=== PATIENT | female | born 1940 | race Caucasian/White ===

== ENCOUNTER → 2018-05-02 | Outpatient (CLI) | payer MEDICARE ==
[2018-05-02 15:17] LABS: HCT 44.6 % (34.0-46.0); HGB 14.8 gm/dL (11.4-16.0); MCH 29.6 pg (25.0-35.0); MCHC 33.1 g/dL (31.0-37.0); MCV 89.5 fL (80.0-100.0); Mean Platelet Volume 7.6; Platelet Count 217 k/uL (150-450); RBC 4.98 m/uL (3.80-5.40); RDW 13.6 % (11.5-15.5); WBC 6.4 k/uL (3.8-10.6)
== END | disposition home or self-care (01) ==
LOC: LABPAT 14:30
PROVIDERS: ATTEND Internal Medicine Interventional Cardiology
DX: Z01.812 Encounter for preprocedural laboratory examination (principal); R94.39 Abnormal result of other cardiovascular function study; I10 Essential (primary) hypertension; R06.02 Shortness of breath
CPT/HCPCS: 36415; 80051; 82565; 84520; 85027

== ENCOUNTER 2018-05-07 12:20 | Day surgery (SDC) | payer MEDICARE ==
[~2018-05-07 12:20] MED LIST: ALPRAZolam 0.25 MG TAB PO PRN; ALPRAZolam 0.5 MG TAB PO PRN; ASPIRIN 325 MG TAB PO ONE; ATORVASTATIN 80 MG TAB PO ONE; NITROGLYCERIN SL TABS 0.4 MG TAB SUBLINGUAL PRN; SODIUM CHLORIDE 0.9% 1,000 ML in EMPTY BAG 1 BAG IV ONE
[2018-05-07] MEDS ORDERED: fentaNYL (PF) 50 MCG/ML 2 ML AMP ONE (13:58)
[2018-05-07] MEDS ORDERED: VERAPAMIL 2.5 MG/ML 2 ML AMP ONE (13:58)
[2018-05-07] MEDS ORDERED: HEPARIN SODIUM PORCINE ONE (13:58)
[2018-05-07] MEDS ORDERED: LIDOCAINE 1% INJ 10MG/ML (20 ML MDV) ONE (13:58)
[2018-05-07] MEDS ORDERED: fentaNYL (PF) 50 MCG/ML 2 ML AMP IV ONE (14:12)
[2018-05-07] MEDS ORDERED: LIDOCAINE 1% INJ 10MG/ML (20 ML MDV) SQ ONE (14:16)
[2018-05-07] MEDS ORDERED: VERAPAMIL SYRINGE (5 MG/10 ML) INTRAARTER ONE (14:18)
[2018-05-07] MEDS ORDERED: ONDANSETRON 4 MG/2 ML VIAL ONE (14:20)
[2018-05-07] MEDS ORDERED: ONDANSETRON 4 MG/2 ML VIAL IVP ONE (14:22)
[2018-05-07] MEDS ORDERED: MIDAZOLAM 2 MG/2 ML VIAL ONE (14:25)
[2018-05-07] MEDS ORDERED: MIDAZOLAM 2 MG/2 ML VIAL IV ONE (14:26)
[2018-05-07] MEDS ORDERED: BIVALIRUDIN BOLUS 250 MG/50 ML IV ONE (14:32)
[2018-05-07] MEDS ORDERED: TICAGRELOR 90 MG TAB ONE (14:32)
[2018-05-07] MEDS ORDERED: BIVALIRUDIN 250 MG in SODIUM CHLORIDE 0.9% 50 ML IV ONE (14:33)
[2018-05-07] MEDS ORDERED: TICAGRELOR 90 MG TAB PO ONE (14:34)
[2018-05-07] MEDS ORDERED: IOPAMIDOL-370 100ML BTL INJ ONE ×2 (14:39→15:09)
[2018-05-07] MEDS ORDERED: ATROPINE SULFATE 0.1 MG/ML 10ML SYRINGE IV PRN (15:19)
[2018-05-07] MEDS ORDERED: ZOLPIDEM 5 MG TAB PO PRN (15:19)
[2018-05-07] MEDS ORDERED: NITROGLYCERIN SL TABS 0.4 MG TAB SUBLINGUAL PRN (15:19)
[2018-05-07] MEDS ORDERED: RX INFO: IV CONTRAST WAS GIVEN 1 EACH MISC MISCELLANE PRN (15:19)
[2018-05-07] MEDS ORDERED: MAG HYDROX/AL HYDROX/SIMETH 30 ML CUP PO PRN (15:19)
[2018-05-07] MEDS ORDERED: SODIUM CHLORIDE 0.9% 1,000 ML IV SCH (15:30)
--- NOTE | 2018-05-07 16:20 | CC ---
CARDIAC CATHETERIZATION REPORT Mrs. Yun is a 77-year-old female known history of diabetes, hypertension, who has been complaining of exertional chest discomfort and had abnormal myocardial perfusion imaging with inferoseptal reversible defect. In view of that, recommendation regarding cardiac catheterization. The procedures, risks and complication were discussed with the patient who is in full understanding and agreement. PROCEDURE: Patient was brought to the director geophysical laboratory in a fasting state after receiving fentanyl and Benadryl and achieving moderate conscious sedated state. Using Xylocaine anesthesia and Seldinger technique, a 6-Bangladeshi sheath was introduced in the right radial artery. Selective right and left angiography performed was performed using 5-Bangladeshi 3 and a half bend right and left Moy catheter. Multiple views of the coronary artery including hemiaxial views were obtained. Following that a 5-Bangladeshi right Moy was used to cross the aortic valve and pressures were calculated. Following that, the catheter was removed and images were reviewed. FINDINGS: FLUOROSCOPY: There was calcification involving the proximal right coronary artery. CORONARY ANGIOGRAPHY: Left main: This is a large size vessel, bifurcating into left circumflex and left anterior descending artery. Left main coronary artery has no evidence of high-grade stenosis. Left anterior descending artery: This is a large-sized vessel reaching toward the apex with a wraparound the apex segment that tapers down distally. The left anterior descending artery gives rise to a large diagonal branch in the mid segment. At the takeoff of the diagonal branch, there is tubular lesion of 50%. The first diagonal branch has a tubular lesion of 60-70 percent. The rest of the LAD has no evidence of high-grade stenosis. Left circumflex: This is a nondominant vessel giving rise to 2 obtuse marginal branches of moderate caliber that have no evidence of high-grade stenosis. Right coronary artery: This is a large dominant vessel bifurcating into PDA and posterolateral segment and its branches. The right coronary artery proximally has a 95% stenosis in a calcified segment shortly after the takeoff. LEFT VENTRICULOGRAM: Left ventriculogram was not performed. HEMODYNAMICS: There was no gradient across the aortic valve. The left ventricle end-diastolic pressure was 12 mmHg. CONCLUSION: 1. Calcified coronary arteries. 2. Moderate disease in the LAD and moderate significant disease in the first diagonal branch. RECOMMENDATION: In view of finding anatomy, I recommend proceeding with angioplasty and stenting of the right coronary artery. The procedure as well as risks and complications were discussed with the patient who is in full understanding and agreement. MMCHRISTI / IJN: [id number] /
--- NOTE | 2018-05-07 16:23 | PTCA ---
PERCUTANEOUSTRANS CORORONARY ANGIOGRAPHY Maria Luisa Mitchell is a 57-year-old female with a known history of hypertension, and diabetes who presented with symptoms of chest pain, had an abnormal myocardial perfusion imaging and her cardiac catheterization showed a critical stenosis involving the ostial proximal right coronary artery. In view of that, recommendation was made regarding angioplasty and stenting. The procedure as well as risks and complications were discussed with the patient who is in full understanding and agreement. PROCEDURE: A 6-Kazakh 3.5 FR guiding catheter was introduced into the system. After cannulating the left main, a 0.014 balanced medium weight J-wire was advanced across the lesion, positioned distally. Then a 3.0 x 12 mm Trek balloon was advanced and one inflation at 10 atmospheres was done. Following that, the balloon was removed and attempt to advance 4.0 x 15 mm Xience CR stent were unsuccessful. That stent was removed and a 0.014 whisper J-wire was advanced next to the 1st wire in a patricia fashion and subsequently attempt to advance the stent were unsuccessful. That stent was removed and attempt to advance a 4.0 x 12 mm Xience ER stent were unsuccessful. After removing that stent, a 3.5 x 12 mm Trek balloon was advanced and one inflation at 10 atmospheres was done. Following that, the balloon was removed and a 4.0 x 12 mm Xience ER stent was advanced, deployed and was dilated at 16 atmospheres. After removing the balloon, a 4.5 x 8 mm NC Trek balloon was advanced and one inflation at 12 atmospheres was done. After the last inflation, after appropriate wait, the balloon and the guidewire were withdrawn back in the guiding catheter. Images were obtained, repeated. Those images reveal stable successful stenting. At that point, the guiding catheter, the balloon and the guidewire were removed. Sheath was removed. Hemostasis was obtained with deployment of a TR band. There was no immediate complications. Patient is returned to her room in stable condition. Of note, the patient had no chest discomfort or EKG changes with the inflation. She received Angiomax per protocol as well as oral loading dose of Brilinta. RESULTS: Successful stenting of the proximal right coronary artery with reduction of stenosis from 95% to less than 5%. RECOMMENDATION: Patient will be continued on aspirin, Brilinta and statin. The importance of dual antiplatelet treatment were discussed with the patient and her family who are in full understanding and agreement. Duration of procedure is 55 minutes. MMHALIEL / IJN: [id number] /
--- NOTE | 2018-05-07 16:29 | LTR ---
DATE OF SERVICE: 05/07/[address] Yates: I had the pleasure of performing cardiac catheterization and coronary angioplasty and stenting on Mrs. Mitchell at [facility] on May 07 and a full copy of procedure note will be forwarded to you. In brief, she was found to have critical stenosis involving the proximal right coronary artery and underwent successful stenting of that vessel using a drug-eluting stent. I am hopeful that this procedure will stabilize her status. Thank you again for allowing me to participate in her care. Please feel free to call for any questions. Sincerely yours, MMHALIEL / IJN: [id number] /
[2018-05-07] MEDS: CARVEDILOL 6.25 MG TAB PO SCH (17:13)
[2018-05-07] MEDS: LOPERAMIDE 2 MG CAP PO SCH (20:52)
[2018-05-07] MEDS: TICAGRELOR 90 MG TAB PO SCH (20:52)
[2018-05-07] MEDS ORDERED: amLODIPine 2.5 MG TAB PO SCH (21:00)
[2018-05-07] MEDS ORDERED: ATORVASTATIN 80 MG TAB PO SCH (21:00)
[2018-05-08 00:53] VITALS: RESP 16
[2018-05-08] MEDS: CARVEDILOL 6.25 MG TAB PO SCH (06:24)
[2018-05-08 08:00] LABS: Calcium 9.1 mg/dL (8.4-10.2); Potassium 3.9 mmol/L (3.5-5.1)
[2018-05-08] MEDS: TICAGRELOR 90 MG TAB PO SCH (08:07)
[2018-05-08] MEDS: LOPERAMIDE 2 MG CAP PO SCH (08:08)
[2018-05-08 08:11] VITALS: BP 110/69; PULSE 65; TEMP 98.3
--- NOTE | 2018-05-08 08:39 | PN ---
PROGRESS NOTE Mrs. Mitchell is a 77-year-old female with known history of hypertension and diabetes mellitus who presented with symptoms of angina pectoris and abnormal myocardial perfusion imaging, underwent cardiac catheterization, was found to have critical stenosis involving the proximal calcified right coronary artery, underwent stenting of that vessel. She is doing well this morning. She is denying any chest pain. her breathing has been stable. She denies any dizziness or palpitation. She continued on aspirin 81 mg daily, amlodipine 2.5 mg daily, atorvastatin 80 mg daily, Coreg 6.5 mg twice a day, lisinopril HCT 20-25 mg daily. Her potassium Imodium and Brilinta 90 mg twice a day. PHYSICAL EXAMINATION: Blood pressure 110/60 with a heart in the 60s. LUNGS: Clear. HEART: Regular rhythm S1, S2. No S3. No rub. ABDOMEN: Soft, nontender. Right groin study right radial no hematoma. EXTREMITIES: No edema. LAB DATA: BUN and creatinine 13 and 0.84 potassium 3.9. Her EKG revealed no acute changes. IMPRESSION: 1. Status post stenting of the right coronary artery. 2. Hypertension. 3. Diabetes mellitus. RECOMMENDATION: Patient will be discharged home today and followed as an outpatient. MMODL / IJN: [id number] /
[2018-05-08] MEDS ORDERED: LISINOPRIL-HCTZ 20-25 MG 1 EACH TAB PO SCH (09:00)
[2018-05-08] MEDS ORDERED: POTASSIUM CHLORIDE ER 10 MEQ TAB.ER.PRT PO SCH (09:00)
[2018-05-08] MEDS ORDERED: CHOLECALCIFEROL 1,000 UNIT TAB PO SCH (09:00)
[2018-05-08] MEDS ORDERED: ASPIRIN 81 MG PO SCH (09:00)
[2018-05-08 10:31] VITALS: BMI 31.6
[2018-05-08] MEDS ORDERED: MULTIVITAMINS, THERA 1 EACH TAB PO SCH (12:00)
== END 2018-05-08 11:00 | disposition home or self-care (01) ==
LOC: CATHCVL 12:20 → 3SCARD 15:11 → CATHCVL 05-08 11:00
PROVIDERS: ATTEND Internal Medicine Interventional Cardiology
DX: I25.10 Atherosclerotic heart disease of native coronary artery without angina pectoris (principal); I10 Essential (primary) hypertension; E11.9 Type 2 diabetes mellitus without complications; F17.210 Nicotine dependence, cigarettes, uncomplicated; Z79.899 Other long term (current) drug therapy; Z79.84 Long term (current) use of oral hypoglycemic drugs; Z79.82 Long term (current) use of aspirin; Z82.49 Family history of ischemic heart disease and other diseases of the circulatory system
CPT/HCPCS: 93458; 80048; C9600; C1769 ×3; C1894; C1725 ×3; C1887; C1874; J2250; J2405; J2001; J3010; J0583; Q9967

== ENCOUNTER 2019-01-16 06:31 | Day surgery (SDC) | payer MEDICARE ==
[2019-01-14 16:05] VITALS: BMI 30.9
[~2019-01-16 06:31] MED LIST changes: -ALPRAZolam 0.5 MG TAB PO PRN; -ATORVASTATIN 80 MG TAB PO ONE; -NITROGLYCERIN SL TABS 0.4 MG TAB SUBLINGUAL PRN
[2019-01-16 07:19] VITALS: RESP 16; TEMP 98.2
[2019-01-16] MEDS ORDERED: VERAPAMIL 2.5 MG/ML 2 ML AMP ONE (07:42)
[2019-01-16] MEDS ORDERED: fentaNYL (PF) 50 MCG/ML 2 ML AMP ONE (07:42)
[2019-01-16] MEDS ORDERED: LIDOCAINE 1% INJ 10MG/ML (20 ML MDV) ONE (07:42)
[2019-01-16] MEDS ORDERED: HEPARIN SODIUM 1,000 UN/ML (10ML VL) ONE (07:42)
[2019-01-16] MEDS ORDERED: fentaNYL (PF) 50 MCG/ML 2 ML AMP IVP ONE (08:02)
[2019-01-16] MEDS ORDERED: VERAPAMIL SYRINGE (5 MG/10 ML) INTRAARTER ONE (08:04)
[2019-01-16] MEDS ORDERED: LIDOCAINE 1% INJ 10MG/ML (20 ML MDV) SQ ONE (08:04)
[2019-01-16] MEDS ORDERED: MIDAZOLAM (PF) 2 MG/2 ML VIAL IV ONE (08:11)
[2019-01-16] MEDS ORDERED: HEPARIN SODIUM 1,000 UN/ML (10ML VL) IV ONE (08:14)
[2019-01-16] MEDS ORDERED: IOPAMIDOL-370 125ML BTL INJ ONE (08:21)
[2019-01-16] MEDS ORDERED: RX INFO: IV CONTRAST WAS GIVEN 1 EACH MISC MISCELLANE PRN (08:41)
[2019-01-16] MEDS ORDERED: NITROGLYCERIN SL TABS 0.4 MG TAB SUBLINGUAL PRN (08:42)
[2019-01-16] MEDS ORDERED: SODIUM CHLORIDE 0.9% 1,000 ML IV SCH (08:45)
[2019-01-16] MEDS ORDERED: LISINOPRIL-HCTZ 20-25 MG 1 EACH TAB PO SCH (09:00)
[2019-01-16] MEDS ORDERED: POTASSIUM CHLORIDE ER 10 MEQ TAB.ER.PRT PO SCH (09:00)
[2019-01-16] MEDS ORDERED: NON-FORMULARY DRUG (Glucosam/Chon-Msm1/C/Mang/Bosw [Glucosamine-Chondroitin Tablet] 1 EACH PO SCH (09:00)
[2019-01-16] MEDS ORDERED: NON-FORMULARY DRUG (Calcium Carbonate [Calcium] 1,200 MG) PO SCH (09:00)
[2019-01-16] MEDS ORDERED: NON-FORMULARY DRUG (Cholecalciferol (Vitamin D3) [Vitamin D3] 2,000 UNIT) PO SCH (09:00)
[2019-01-16] MEDS ORDERED: NON-FORMULARY DRUG (Aspirin [Adult Low Dose Aspirin Ec] 81 MG) PO SCH (09:00)
[2019-01-16] MEDS ORDERED: MULTIVITAMINS, THERA 1 EACH TAB PO SCH (09:00)
[2019-01-16] MEDS ORDERED: CARVEDILOL 6.25 MG TAB PO SCH (09:00)
--- NOTE | 2019-01-16 10:01 | CC ---
CARDIAC CATHETERIZATION REPORT Mrs. Mitchell is a 78-year-old female with known history of hypertension, hyperlipidemia, diabetes mellitus, history of coronary artery disease who underwent stenting of her right coronary artery in April 2018, who presented with recurrent dyspnea on exertion and fatigue similar to the symptoms she had before. In view of that, recommendation was made regarding cardiac catheterization. The procedure as well as the risks and the complications were discussed with the patient who is in full understanding and agreement. PROCEDURE: Patient was brought to agricultural labor camp manager in a fasting semi-sedated state after receiving fentanyl and Benadryl and achieving moderate conscious sedated state. Using Xylocaine anesthesia in the Seldinger technique, a 6-Guyanese sheath was introduced in the right radial artery. Selective right and left coronary angiography was performed using 5- Guyanese 3.5 bend right and left Moy catheter. Multiple views of coronary artery including hemiaxial views obtained. Following that 5-Guyanese tight pigtail catheter introduced in the left ventricle and a 30-degree HAY view of the left ventricle was obtained. Following that, catheter and sheath were removed. Hemostasis was obtained with deployment of a TR band. There was no immediate complication. Patient was returned to room in stable condition. Of note, the patient received 4500 units of intravenous heparin. FINDINGS: LEFT MAIN: This is a large-sized vessel bifurcating into left circumflex, left anterior descending artery. Left main coronary artery has no evidence of obstructive coronary artery disease. LEFT ANTERIOR DESCENDING ARTERY: This is a large-sized vessel reaching to the apex giving a large diagonal branch in the proximal segment, the LAD is calcified. The takeoff of the diagonal branch has a 70% plaque. There is another plaque in the LAD at the same area of about 70%. The rest of the vessel has no high-grade stenosis. LEFT CIRCUMFLEX: This is a nondominant vessel giving rise to 2 obtuse marginal branches of large caliber. The left circumflex as well as branches have no evidence of obstructive coronary artery disease. RIGHT CORONARY ARTERY: This is a large dominant vessel bifurcating into PDA and posterolateral segment and branches. The right PDA reaches toward the inferoapical wall. The right PDA in the proximal segment which is the stented segment at the ostium has an eccentric 95% stenosis. The rest of the vessel has no evidence of high-grade stenosis. LEFT VENTRICULOGRAM: Left ventriculogram is performed in 30-degree HAY view and revealed normal left ventricular size and systolic function. Ejection fraction 60%. There was no significant mitral regurgitation. HEMODYNAMICS: There was no gradient across the aortic valve. The left ventricle end- diastolic pressure was 16 to 20 mmHg. CONCLUSION: 1. Calcified coronary arteries. 2. Restenosis at the site of the ostial and proximal right coronary artery. 3. Significant obstructive disease involving the proximal LAD and involving the first diagonal branch. 4. Normal left ventricular size and systolic function. RECOMMENDATION: In view of findings and restenosis in the right coronary artery, I recommend to proceed with evaluation for possible coronary artery bypass grafting, especially with the history of diabetes mellitus. Those findings and recommendation were discussed with the patient and her family who are in full understanding and agreement. Duration of procedure is 17 minutes. MMCHRISTI / ESAUN: [id number] /
[2019-01-16 10:31] LABS: Basophils # (A) 0.1 k/uL (0-0.2); Basophils % (A) 1 %; Eosinophils # (A) 0.2 k/uL (0-0.7); Eosinophils % (A) 3 %; HCT 40.2 % (34.0-46.0); HGB 13.3 gm/dL (11.4-16.0); Lymphocytes # (A) 1.3 k/uL (1.0-4.8); Lymphocytes % (A) 24 %; MCH 28.9 pg (25.0-35.0); MCV 87.6 fL (80.0-100.0); Mean Platelet Volume 7.6; Monocytes # (A) 0.3 k/uL (0-1.0); Monocytes % (A) 5 %; Neutrophils # (A) 3.6 k/uL (1.3-7.7); Neutrophils % (A) 65 %; Platelet Count 175 k/uL (150-450); RBC 4.59 m/uL (3.80-5.40); RDW 13.3 % (11.5-15.5); WBC 5.5 k/uL (3.8-10.6)
[2019-01-16 10:54] LABS: INR 1.1 (<1.2); Prothrombin Time 11.2 sec (9.0-12.0)
[2019-01-16 11:27] LABS: Albumin 3.5 g/dL (3.5-5.0); Magnesium 1.7 mg/dL (1.6-2.3); Potassium 3.9 mmol/L (3.5-5.1); Total Bilirubin 0.8 mg/dL (0.2-1.3)
[2019-01-16 11:46] LABS: Appearance,Urine Clear (Clear); Bilirubin,Urine Negative (Negative); Blood,Urine Negative (Negative); Color,Urine Light Yellow; Glucose,Urine (UA) Negative (Negative); Ketones,Urine Negative (Negative); Leukocyte Esterase,Urine Negative (Negative); Nitrite,Urine Negative (Negative); PH, Urine 7.5 (5.0-8.0); Protein,Urine Negative (Negative); Urobilinogen,Urine <2.0 mg/dL (<2.0)
[2019-01-16 11:47] LABS: Partial Thromboplastin Time 83.4 sec (22.0-30.0)
[2019-01-16] MEDS ORDERED: ACETAMINOPHEN TAB 325 MG TAB ONE (11:51)
--- NOTE | 2019-01-16 12:06 | P.GSCN ---
History of Present Illness Consult date: 01/16/19 Reason for Consult: Triple-vessel coronary artery disease, surgical recommendations Requesting physician: Matilde Hodges History of present illness: This is a 78-year-old female patient who follows with Dr. Yates on an outpatient basis. She has a previous medical history of coronary artery disease status post stenting to the RCA in April 2018, hypertension, borderline diabetes, previous tobacco dependence, and family history of premature coronary artery disease. She presented to [facility] this morning for scheduled outpatient heart catheterization due to complaints of shortness of breath with exertion over the previous 2 weeks. Apparently back in April 2018 she had a positive stress test with symptoms of dyspnea on exertion without any chest pain. At that time she had a heart catheterization and received a stent to the right coronary artery. She had been recovering and doing well up until 2 weeks ago when she became to have similar symptoms. She again denied any chest pain, nausea/vomiting, weakness, dizziness, lower extremity edema, or any stroke-like symptoms. She was recommended to undergo heart catheterization which was completed today and which demonstrated 95% ostial RCA stenosis, and 70% proximal LAD stenosis. Dr. Johnson from cardiothoracic surgery was consulted for surgical recommendations versus further stenting. Review of Systems Review of systems was completed and was negative except as noted. - Cardiovascular Reports dyspnea on exertion, Reports shortness of breath Past Medical History Past Medical History: Diabetes Mellitus, Hyperlipidemia, Hypertension, Osteoarth ritis (OA), Thyroid Disorder Additional Past Medical History / Comment(s): KIDNEY STONES , DIET CONTROLLED DIABETIC, PAST HISTORY OF GRAVES DISEASE History of Any Multi-Drug Resistant Organisms: None Reported Past Surgical History: Appendectomy, Cholecystectomy, Heart Catheterization With Stent Additional Past Surgical History / Comment(s): RIGHT KNEE ARTHROSCOPIC Past Anesthesia/Blood Transfusion Reactions: Motion Sickness Date of Last Stent Placement:: MAY 07 2018 Past Psychological History: No Psychological Hx Reported Smoking Status: Former smoker Past Alcohol Use History: Rare Past Drug Use History: None Reported - Past Family History Father Family Medical History: Cancer Additional Family Medical History / Comment(s): LUNG CANCER Mother Family Medical History: Coronary Artery Disease (CAD), Myocardial Infarction ([place]) Brother(s) Family Medical History: AICD/Pacemaker, Coronary Artery Disease (CAD) Medications and Allergies Home Medications Medication Instructions Recorded Confirmed Type Aspirin [Adult Low Dose Aspirin EC] 81 mg PO DAILY 05/05/18 01/16/19 History Calcium Carbonate [Calcium] 1,200 mg PO BID 05/05/18 01/16/19 History Carvedilol [Coreg] 6.25 mg PO BID 05/05/18 01/16/19 History Cholecalciferol (Vitamin D3) 2,000 unit PO DAILY 05/05/18 01/16/19 History [Vitamin D3] Glucosam/Demian-Msm1/C/Errol/Bosw 1 each PO DAILY 05/05/18 01/16/19 History [Glucosamine-Chondroitin Tablet] Lisinopril-Hctz 20-25 mg 1 tab PO QAM 05/05/18 01/16/19 History [Zestoretic 20-25] Loperamide [Imodium] 4 mg PO BID 05/05/18 01/16/19 History Multivitamins, Thera [Multivitamin 1 tab PO DAILY 05/05/18 01/16/19 History (formulary)] Potassium Chloride ER [K-Dur 10] 10 meq PO QAM 05/05/18 01/16/19 History amLODIPine [Norvasc] 2.5 mg PO HS 05/05/18 01/16/19 History Atorvastatin [Lipitor] 80 mg PO HS #90 tab 05/08/18 01/16/19 Rx Nitroglycerin Sl Tabs [Nitrostat] 0.4 mg SUBLINGUAL Q5M PRN #25 tab 05/08/18 0 01/14/19 Rx Allergies Allergy/AdvReac Type Severity Reaction Status Date / Time adhesive Allergy BLISTERS Verified 01/14/19 15:41 Surgical - Exam Vital Signs Temp Pulse Resp BP Pulse Ox 98.2 F 70 16 144/69 97 01/16/19 07:17 01/16/19 07:17 01/16/19 07:17 01/16/19 07:17 01/16/19 07:17 - General well developed, well nourished, no distress, no pain - Eyes PERRL, normal ocular movement - ENT no hearing loss - Neck no masses, no bruits, trachea midline - Respiratory Lungs sounds clear bilaterally. Respirations even, nonlabored. Currently on room air with oxygen saturation 96%. No chest wall deformities. - Cardiovascular S1, S2 present. Regular rate and rhythm, sinus rhythm on telemetry. Palpable peripheral pulses bilaterally. No edema present. No calf pain or tenderness noted. No varicosities noted. - Abdomen Abdomen: soft, non tender, bowel sounds - Genitourinary Deferred - Rectum Deferred - Integumentary Right radial heart catheterization site without hematoma, T band in place. no rash, no growths - Neurologic normal coordination, normal sensation - Musculoskeletal normal posture - Psychiatric oriented to time, oriented to person, oriented to place, speech is normal, memory intact Results - Labs 01/16/19 09:48 01/16/19 09:48 Abnormal Lab Results - Last 24 Hours (Table) 01/16/19 01/16/19 Range/Units 09:48 09:48 APTT 83.4 H (22.0-30.0) sec BUN 21 H (7-17) mg/dL Glucose 160 H (74-99) mg/dL Total Protein 6.0 L (6.3-8.2) g/dL Diabetes panel 01/16/19 Range/Units 09:48 Sodium 141 (137-145) mmol/L Potassium 3.9 (3.5-5.1) mmol/L Chloride 105 (98-107) mmol/L Carbon Dioxide 29 (22-30) mmol/L BUN 21 H (7-17) mg/dL Creatinine 0.94 (0.52-1.04) mg/dL Glucose 160 H (74-99) mg/dL Calcium 9.0 (8.4-10.2) mg/dL AST 35 (14-36) U/L ALT 34 (9-52) U/L Alkaline Phosphatase 69 (38-126) U/L Total Protein 6.0 L (6.3-8.2) g/dL Albumin 3.5 (3.5-5.0) g/dL Triglycerides 53 (<150) mg/dL HDL Cholesterol 44 (40-60) mg/dL Calcium panel 01/16/19 Range/Units 09:48 Calcium 9.0 (8.4-10.2) mg/dL Albumin 3.5 (3.5-5.0) g/dL Pituitary panel 01/16/19 Range/Units 09:48 Sodium 141 (137-145) mmol/L Potassium 3.9 (3.5-5.1) mmol/L Chloride 105 (98-107) mmol/L Carbon Dioxide 29 (22-30) mmol/L BUN 21 H (7-17) mg/dL Creatinine 0.94 (0.52-1.04) mg/dL Glucose 160 H (74-99) mg/dL Calcium 9.0 (8.4-10.2) mg/dL Adrenal panel 01/16/19 Range/Units 09:48 Sodium 141 (137-145) mmol/L Potassium 3.9 (3.5-5.1) mmol/L Chloride 105 (98-107) mmol/L Carbon Dioxide 29 (22-30) mmol/L BUN 21 H (7-17) mg/dL Creatinine 0.94 (0.52-1.04) mg/dL Glucose 160 H (74-99) mg/dL Calcium 9.0 (8.4-10.2) mg/dL Total Bilirubin 0.8 (0.2-1.3) mg/dL AST 35 (14-36) U/L ALT 34 (9-52) U/L Alkaline Phosphatase 69 (38-126) U/L Total Protein 6.0 L (6.3-8.2) g/dL Albumin 3.5 (3.5-5.0) g/dL - Imaging Additional studies: Heart catheterization films reviewed with Dr. Johnson and Dr. Hodges Assessment and Plan Assessment: 1. Triple-vessel coronary artery disease 2. History of coronary artery disease with stent placement to the RCA in 2017 3. Hypertension 4. Borderline diet controlled diabetes 5. Previous tobacco dependence 6. Family history of premature coronary artery disease Plan: The patient was seen and examined at the bedside in the extended stay unit with Dr. Johnson. Chart/diagnostics were reviewed. The usual perioperative course of open heart surgery was reviewed in detail with the patient and her family, risks and benefits were discussed, all questions were answered. The patient was agreeable to preoperative testing which was ordered. At this time our recommendation is for coronary artery bypass graft surgery in the next 1-2 weeks pending the results of preoperative testing. Continue aspirin, statin, beta reagan therapy. Will hold Plavix for 7 days prior to surgery. More recommendations to follow based on results of preoperative testing. Thank you Dr. Hodges for this consult. We look forward to working with you in the care of your patient. Time with Patient: Greater than 30
--- NOTE | 2019-01-16 12:37 | US ---
EXAMINATION TYPE: US carotid duplex BILAT DATE OF EXAM: 01/16/2019 COMPARISON: NONE CLINICAL HISTORY: 78-year-old female Pre-Op Cardiac Surgery. No h/o stroke TECHNIQUE: Carotid duplex ultrasound examination. Indirect Doppler criteria was utilized. FINDINGS: EXAM MEASUREMENTS: RIGHT: Peak Systolic Velocity (PSV) cm/sec ----- Right CCA: 83.4 ----- Right ICA: 76.2 ----- Right ECA: 71.8 ICA/CCA ratio: 0.9 RIGHT: End Diastole cm/sec ----- Right CCA: 23.0 ----- Right ICA: 17.7 ----- Right ECA: 5.5 LEFT: Peak Systolic Velocity (PSV) cm/sec ----- Left CCA: 85.9 ----- Left ICA: 91.3 ----- Left ECA: 140.6 ICA/CCA ratio: 1.1 LEFT: End Diastole cm/sec ----- Left CCA: 17.5 ----- Left ICA: 16.3 ----- Left ECA: 4.7 VERTEBRALS (direction of flow): Right Vertebral: Antegrade Left Vertebral: Antegrade Rhythm: Normal Insurance Underwriter Sales notes: Mild to moderate heterogenous plaque seen at bilateral bulbs with no significant s tenosis seen IMPRESSION: No hemodynamically significant stenosis appreciated in either internal carotid artery. Criteria for Assigning % of Stenosis / Diameter reduction (Estimation based on the indirect measurements of the internal carotid artery velocities (ICA PSV). 1. Normal (no stenosis)=ICA PSV < 125 cm/s: ratio < 2.0: ICA EDV<40 cm/s. 2. Less than 50% stenosis=ICA PSV < 125 cm/s: ratio < 2.0: ICA EDV<40 cm/s. 3. 50 to 69% stenosis=ICA PSV of 125 to 230 cm/s: ration 2.0 ? 4.0: ICA EDV 40-100 cm/s. 4. Greater than 70% stenosis to near occlusion= ICA PSV > 230 cm/s: ratio > 4.0: ICA EDV > 100 cm/s. 5. Near occlusion= ICA PSV velocities may be low or undetectable: variable ratio and ICA EDV. 6. Total occlusion=unable to detect flow.
[2019-01-16 14:06] VITALS: BP 103/66; PULSE 65
--- NOTE | 2019-01-16 15:09 | XR ---
EXAMINATION TYPE: XR chest 2V DATE OF EXAM: 01/16/2019 COMPARISON: None HISTORY: 78-year-old female preoperative cardiac surgery TECHNIQUE: Frontal and lateral views FINDINGS: Heart upper limits of normal in size. Mild atherosclerotic arch calcifications. Mild elongation thora cic aorta. Hazy peripheral lower lung densities related to overlying soft tissue. Mild diffuse inters titial prominence has a chronic appearance. No pleural effusion. IMPRESSION: Chronic-appearing changes. No acute process seen.
[2019-01-16 17:17] LABS: Hepatitis A Antibody IgM Non-Reactive (Non-Reactive); Hepatitis B Core IgM Non-Reactive (Non-Reactive)
[2019-01-16 17:21] LABS: Hemoglobin A1C 7.6 % (4.0-6.0)
[2019-01-16] MEDS ORDERED: ATORVASTATIN 80 MG TAB PO SCH (21:00)
[2019-01-16] MEDS ORDERED: amLODIPine 2.5 MG TAB PO SCH (21:00)
--- NOTE | 2019-01-17 08:59 | ECHOF ---
Referral Reason:eval LV function, valves MEASUREMENTS -------- HEIGHT: 167.6 cm WEIGHT: 87.1 kg BP: 139/66 RVIDd: 3.2 cm (< 3.3) IVSd: 1.1 cm (0.6 - 1.1) LVIDd: 5.1 cm (3.9 - 5.3) LVPWd: 1.0 cm (0.6 - 1.1) IVSs: 1.9 cm LVIDs: 2.7 cm LVPWs: 1.6 cm LA Diam: 3.5 cm (2.7 - 3.8) LAESV Index (A-L): 30.43 ml/m Ao Diam: 3.7 cm (2.0 - 3.7) AV Cusp: 2.1 cm (1.5 - 2.6) MV EXCURSION: 17.007 mm (> 18.000) MV EF SLOPE: 112 mm/s (70 - 150) EPSS: 0.4 cm MV E Blas: 0.79 m/s MV DecT: 262 ms MV A Blas: 1.01 m/s MV E/A Ratio: 0.78 RAP: 5.00 mmHg RVSP: 26.04 mmHg FINDINGS -------- Sinus rhythm. This was a technically good study. The left ventricular size is normal. There is borderline concentric left ventricular hypertrophy. Overall left ventricular systolic function is normal with, an EF between 60 - 65 %. The right ventricle is normal in size. LA is midly dilated 29-33ml/m2. The right atrium is normal in size. Interatrial and interventricular septum intact. There is mild aortic valve sclerosis. Trace amount of aortic regurgitation. The mitral valve leaflets are mildly thickened. There is trace mitral regurgitation. Mild tricuspid regurgitation present. Right ventricular systolic pressure is normal at < 35 mmHg. Trace/mild (physiologic) pulmonic regurgitation. The aortic root size is normal. Normal inferior vena cava with normal inspiratory collapse consistent with estimated right atrial pre ssure of 5 mmHg. There is no pericardial effusion. CONCLUSIONS -------- 1. Sinus rhythm. 2. This was a technically good study. 3. The left ventricular size is normal. 4. There is borderline concentric left ventricular hypertrophy. 5. Overall left ventricular systolic function is normal with, an EF between 60 - 65 %. 6. The right ventricle is normal in size. 7. LA is midly dilated 29-33ml/m2. 8. The right atrium is normal in size. 9. Interatrial and interventricular septum intact. 10. There is mild aortic valve sclerosis. 11. Trace amount of aortic regurgitation. 12. The mitral valve leaflets are mildly thickened. 13. There is trace mitral regurgitation. 14. Mild tricuspid regurgitation present. 15. Right ventricular systolic pressure is normal at < 35 mmHg. 16. Trace/mild (physiologic) pulmonic regurgitation. 17. The aortic root size is normal. 18. Normal inferior vena cava with normal inspiratory collapse consistent with estimated right atrial pressure of 5 mmHg. 19. There is no pericardial effusion. aorta is dilated PEDIATRIC AUDIOLOGIST: Bekah Lindquist RDCS
--- NOTE | 2019-01-21 15:34 | P.VSCSTY ---
Greater Saphenous Vein Mapping This is bilateral lower extremity greater saphenous vein mapping. Date of service 01/16/2019 Vein quality and ultrasound appearance no intraluminal thrombus or wall changes are seen. Vein size groin right 8 x 9 groin left 6.2 x 6.8 High thigh right 5 x 6.5 high thigh left 3.9 x 5.3 Mid thigh right 4.7 x 6.6 mid thigh left 4.4 x 5.3 Above-knee right 3.9 x 5.4 above- knee left 3.5 x 4.1 Below knee right 2.4 x 2.7 below-knee left 3.3 x 3.3 Mid calf right to 2.6 x 3 mid calf left 3 x 2.8 Ankle right 2.6 x 3.2 ankle left 2.0 x 3.0 Impression usable bilateral greater saphenous vein.
== END 2019-01-16 14:06 | disposition home or self-care (01) ==
LOC: CATHCVL 06:31
PROVIDERS: ATTEND Internal Medicine Interventional Cardiology
DX: I25.110 Atherosclerotic heart disease of native coronary artery with unstable angina pectoris (principal); I25.84 Coronary atherosclerosis due to calcified coronary lesion; T82.855A Stenosis of coronary artery stent, initial encounter; Z01.810 Encounter for preprocedural cardiovascular examination; I70.0 Atherosclerosis of aorta; I08.3 Combined rheumatic disorders of mitral, aortic and tricuspid valves; I10 Essential (primary) hypertension; Z82.49 Family history of ischemic heart disease and other diseases of the circulatory system; E78.2 Mixed hyperlipidemia; E78.00 Pure hypercholesterolemia, unspecified; Z87.891 Personal history of nicotine dependence; E11.9 Type 2 diabetes mellitus without complications; Z87.442 Personal history of urinary calculi; E05.00 Thyrotoxicosis with diffuse goiter without thyrotoxic crisis or storm; Z79.02 Long term (current) use of antithrombotics/antiplatelets; Z79.82 Long term (current) use of aspirin; Z79.899 Other long term (current) drug therapy
CPT/HCPCS: 94150; 93306; 93458; 80061; 80053; 80074; 84443; 83735; 85025; 85610; 85730; 81003; 87070; 87086; 83036; 71046; 93970; 93880; C1769; J2001; J3010; J1644; Q9967; J2250

== ENCOUNTER → 2019-01-19 | Outpatient (CLI) | payer MEDICARE ==
--- NOTE | 2019-01-20 14:22 | P.PN ---
Progress Note - Text Progress Note Date: 01/19/19 5 meter walk test performed 01/19/19: 1. 4.05 sec 2. 3.56 sec 3. 3.69 sec
== END | disposition home or self-care (01) ==
LOC: LABWHC1 16:30
PROVIDERS: ATTEND Surgery
DX: I25.10 Atherosclerotic heart disease of native coronary artery without angina pectoris (principal)
CPT/HCPCS: 86850; 86900; 86901

== ENCOUNTER 2019-01-27 05:44 | Inpatient (IN) | payer MEDICARE ==
[~2019-01-27 05:44] MED LIST changes: +ALBUMIN HUMAN 25% 50 ML IV ONE; +ALBUMIN HUMAN 5% 500 ML IVPB ONE; -ALPRAZolam 0.25 MG TAB PO PRN; +ATORVASTATIN 10 MG TAB PO ONE; +CALCIUM CHLORIDE 100 MG/ML 10 ML SYRINGE IV ONE; +CHLORHEXIDINE GLUCONATE 15 ML CUP MUCOUS MEM ONE; +CLEVIDIPINE BUTYRATE 25 MG in EMPTY BAG 1 BAG IV ONE; +DEXTROSE 5% IN WATER 1,000 ML with POTASSIUM CHLORIDE 110 MEQ, MAGNESIUM SULFATE 16 MEQ... IV ONE; +DEXTROSE 5% IN WATER 1,000 ML with POTASSIUM CHLORIDE 25 MEQ, SODIUM CHLORIDE 2.5MEQ/ML... IRRIGATION ONE; +HEPARIN SODIUM 1,000 UN/ML (10ML VL) IV ONE; +HEPARIN SODIUM,PORCINE 5,000 UNIT in SODIUM CHLORIDE 0.9% 500 ML 500 ML IV ONE; +INSULIN REGULAR 100 UNIT in SODIUM CHLORIDE 0.9% 100 ML IV ONE; +LACTATED RINGERS 1,000 ML IV ONE; +LACTATED RINGERS 1,000 ML IV SCH; +MAGNESIUM SULFATE MG 500 MG/ML IV ONE; +MANNITOL 25% 12.5 GM/50 ML VIAL IV ONE; +METOPROLOL TARTRATE 12.5 MG TAB PO ONE; +MIDAZOLAM 2 MG/2 ML VIAL IV PRN; +NITROGLYCERIN SL TABS 0.4 MG TAB SUBLINGUAL ONE; +NITROGLYCERIN-D5W PMX 25 MG/250 ML BTL IV ONE; +NITROGLYCERIN-D5W PMX 50 MG in DEXTROSE/WATER 1 250ML.BAG IV ONE; +NOREPINEPHRINE 4 MG in SODIUM CHLORIDE 0.9% 250 ML IV ONE; +PAPAVERINE 360 MG in SODIUM CHLORIDE 0.9% 90 ML IV ONE; +PHENYLEPHRINE 10 MG/ML VIAL IV ONE; +PHENYLEPHRINE 40 MG in SODIUM CHLORIDE 0.9% 250 ML IV ONE; +PROPOFOL 1,000 MG/100 ML VIAL IV ONE; +PROTAMINE SULFATE 10 MG/ML 25 ML VIAL IV ONE; +PROTAMINE SULFATE 250 MG in EMPTY BAG 1 BAG IV ONE; +SODIUM BICARB 8.4% 50 ML SYR (1 MEQ/ML) IV ONE; +SODIUM CHLORIDE 0.9% 1,000 ML IV ONE; -SODIUM CHLORIDE 0.9% 1,000 ML in EMPTY BAG 1 BAG IV ONE; +TRANEXAMIC ACID 2,000 MG in SODIUM CHLORIDE 0.9% 80 ML IV ONE; +VANCOMYCIN 1,000 MG VIAL MISCELLANE ONE; +ceFAZolin 2,000 MG in SODIUM CHLORIDE 0.9% 30 ML IVPB ONE
[2019-01-27] MEDS ORDERED: LIDOCAINE 1% 20 ML VIAL (10MG/ML) FOR IV START INTRADERMA ONE (06:30)
[2019-01-27] MEDS ORDERED: INSULIN ASPART (NovoLOG) 100 UNIT/ML VIAL SQ ONE (06:40)
[2019-01-27 06:48] LABS: Glucose,Whole Blood 188 mg/dL (75-99)
[2019-01-27] MEDS ORDERED: NITROGLYCERIN-D5W PMX 50 MG/250 ML BOTTLE IV ONE (07:30)
[2019-01-27] MEDS ORDERED: fentaNYL (PF) 50 MCG/ML 50 ML VIAL ONE (07:30)
[2019-01-27] MEDS ORDERED: PROTAMINE SULFATE 10 MG/ML 25 ML VIAL IV ONE (07:30)
[2019-01-27] MEDS ORDERED: SODIUM CHLORIDE 0.9% 250 ML BAG ONE (07:30)
[2019-01-27] MEDS ORDERED: ALBUMIN HUMAN 5% (12.5gm) 250 ML BOTTLE IVPB ONE (07:30)
[2019-01-27] MEDS ORDERED: POTASSIUM CHLORIDE OPEN HEART 20 MEQ/50 ML BAG IVPB ONE (07:30)
[2019-01-27] MEDS ORDERED: VECURONIUM 10 MG VIAL IV ONE (07:30)
[2019-01-27] MEDS ORDERED: HEPARIN SODIUM,PORCINE 5,000 UNIT/ML 1 ML VIAL ONE (07:30)
[2019-01-27] MEDS ORDERED: ELECTROLYTE-R (PH 7.4) 1,000 ML IV.SOLN IV ONE (07:30)
[2019-01-27] MEDS ORDERED: TRANEXAMIC ACID 1,000 MG/10 ML VIAL ONE (07:30)
[2019-01-27] MEDS ORDERED: MAGNESIUM SULFATE 4 MEQ/ML 10ML VIAL ONE (07:30)
[2019-01-27] MEDS ORDERED: MIDAZOLAM 2 MG/2 ML VIAL ONE (07:30)
[2019-01-27] MEDS ORDERED: PHENYLEPHRINE-0.9% NACL SYG 1 MG/10 ML SYRINGE ONE (07:30)
[2019-01-27] MEDS ORDERED: PROPOFOL 10 MG/ML 20 ML VIAL IV ONE (07:30)
[2019-01-27] MEDS ORDERED: LIDOCAINE 2% SYG (PF) 100 MG/5 ML ONE (07:30)
[2019-01-27] MEDS ORDERED: HEPARIN SODIUM,PORCINE 10,000 UNIT/ML 1 ML VIAL ONE (07:30)
[2019-01-27 08:39] LABS: ABG Base Excess 1.7 mmol/L; ABG Glucose Whole Blood 146 mg/dL (75-99); ABG HCO3 26 mmol/L (21-25); ABG Hematocrit 38 % (34.0-46.0); ABG Ionized Calcium 4.7 mg/dL (4.5-5.3); ABG PCO2 41 mmHg (35-45); ABG PH 7.42 (7.35-7.45); ABG PO2 280 mmHg (83-108); ABG Potassium Whole Blood 3.5 mmol/L (3.4-4.5); ABG Sodium Whole Blood 142 mmol/L (135-146); ABG TCO2 28 mmol/L (19-24)
--- NOTE | 2019-01-27 09:08 | P.ANPRN ---
Procedure Note - Anesthesia - Invasive Line Right Central Line Time Out Performed: Yes Date of Procedure: 01/27/19 Time of Procedure: 07:15 Location of Patient Procedure: PACU Preparation: Sterile Prep, Sterile Dressing Ultrasound Used: Yes Needle Guage: 18 Narrative: Central line placement per sterile protocol utilized.
--- NOTE | 2019-01-27 09:10 | P.ANPRN ---
Procedure Note - Anesthesia - Invasive Line Right [place] Donny Date of Procedure: 01/27/19 Time of Procedure: 07:25 Location of Patient Procedure: PACU Preparation: Sterile Prep, Sterile Dressing Narrative: Central line placement per sterile protocol utilized. [place] Donny had all ports flushed and balloon tested. Advanced to 20 cm. Ballood inflated. Advanced until RV and PA waveforms obtained. Secured @ 40 cm and balloon deflated.
[2019-01-27] MEDS: ceFAZolin 1,000 MG in SODIUM CHLORIDE 0.9% IRRIGATIO 1,000 ML IRRIGATION ONE ×2 (09:50→14:32)
[2019-01-27 10:49] LABS: ABG Base Excess 1.1 mmol/L; ABG Glucose Whole Blood 156 mg/dL (75-99); ABG HCO3 26 mmol/L (21-25); ABG Hematocrit 36 % (34.0-46.0); ABG Ionized Calcium 4.6 mg/dL (4.5-5.3); ABG PCO2 41 mmHg (35-45); ABG PH 7.41 (7.35-7.45); ABG PO2 210 mmHg (83-108); ABG Potassium Whole Blood 3.5 mmol/L (3.4-4.5); ABG Sodium Whole Blood 141 mmol/L (135-146); ABG TCO2 27 mmol/L (19-24)
[2019-01-27 11:46] LABS: ABG Base Excess 1.4 mmol/L; ABG Glucose Whole Blood 251 mg/dL (75-99); ABG HCO3 26 mmol/L (21-25); ABG Hematocrit 27 % (34.0-46.0); ABG Ionized Calcium 4.1 mg/dL (4.5-5.3); ABG PCO2 38 mmHg (35-45); ABG PH 7.43 (7.35-7.45); ABG PO2 297 mmHg (83-108); ABG Potassium Whole Blood 4.9 mmol/L (3.4-4.5); ABG Sodium Whole Blood 134 mmol/L (135-146); ABG TCO2 27 mmol/L (19-24)
[2019-01-27 12:40] LABS: ABG Base Excess 0.3 mmol/L; ABG Glucose Whole Blood 248 mg/dL (75-99); ABG HCO3 26 mmol/L (21-25); ABG Hematocrit 25 % (34.0-46.0); ABG Ionized Calcium 4.2 mg/dL (4.5-5.3); ABG PCO2 44 mmHg (35-45); ABG PH 7.38 (7.35-7.45); ABG PO2 352 mmHg (83-108); ABG Potassium Whole Blood 4.2 mmol/L (3.4-4.5); ABG Sodium Whole Blood 137 mmol/L (135-146); ABG TCO2 27 mmol/L (19-24)
[2019-01-27 13:06] LABS: ABG Base Excess -0.7 mmol/L; ABG Glucose Whole Blood 202 mg/dL (75-99); ABG HCO3 25 mmol/L (21-25); ABG Hematocrit 25 % (34.0-46.0); ABG Ionized Calcium 4.3 mg/dL (4.5-5.3); ABG PCO2 47 mmHg (35-45); ABG PH 7.34 (7.35-7.45); ABG PO2 314 mmHg (83-108); ABG Sodium Whole Blood 139 mmol/L (135-146); ABG TCO2 27 mmol/L (19-24)
[2019-01-27] MEDS ORDERED: SODIUM CHLORIDE 0.9% 50 ML with VASOPRESSIN 20 UNIT IVPB SCH ×2 (14:00)
[2019-01-27 14:45] LABS: ABG Base Excess -0.5 mmol/L; ABG Glucose Whole Blood 121 mg/dL (75-99); ABG HCO3 25 mmol/L (21-25); ABG Hematocrit 30 % (34.0-46.0); ABG Ionized Calcium 4.1 mg/dL (4.5-5.3); ABG Oxygen Saturation 97.9 % (94-97); ABG PCO2 46 mmHg (35-45); ABG PH 7.35 (7.35-7.45); ABG PO2 96 mmHg (83-108); ABG Potassium Whole Blood 3.1 mmol/L (3.4-4.5); ABG Sodium Whole Blood 141 mmol/L (135-146); ABG TCO2 27 mmol/L (19-24)
[2019-01-27 14:51] LABS: ABG Lactic Acid Whole Blood 1.9 mmol/L (0.5-1.6)
[2019-01-27 14:52] LABS: ABG Lactic Acid Whole Blood 1.1 mmol/L (0.5-1.6)
[2019-01-27 14:53] LABS: ABG Lactic Acid Whole Blood 1.1 mmol/L (0.5-1.6)
[2019-01-27 14:54] LABS: ABG Lactic Acid Whole Blood 1.7 mmol/L (0.5-1.6)
[2019-01-27 14:55] LABS: ABG Lactic Acid Whole Blood 1.9 mmol/L (0.5-1.6)
[2019-01-27 14:55] LABS: ABG Lactic Acid Whole Blood 1.7 mmol/L (0.5-1.6)
[2019-01-27] MEDS: ALBUMIN HUMAN 5% 250 ML in EMPTY BAG 1 BAG IVPB PRN ×3 (16:15→22:43)
[2019-01-27] MEDS ORDERED: AMIODARONE 300 MG in DEXTROSE 5% IN WATER 250 ML IV PRN ×2 (16:17)
[2019-01-27] MEDS ORDERED: IPRATROPIUM-ALBUTEROL 3 ML NEB INHALATION PRN (16:17)
[2019-01-27] MEDS ORDERED: PROPOFOL 1,000 MG in EMPTY BAG 1 BAG IV SCH (16:17)
[2019-01-27] MEDS ORDERED: Phosphorus Replacement Protoco 1 EACH MISC MISCELLANE PRN (16:17)
[2019-01-27] MEDS ORDERED: Magnesium Replacement Protocol 1 EACH MISC MISCELLANE PRN ×2 (16:17→22:36)
[2019-01-27] MEDS ORDERED: DEXTROSE 5% IN WATER 100 ML with AMIODARONE 150 MG IV PRN (16:17)
[2019-01-27] MEDS ORDERED: BENZOCAINE/MENTHOL LOZENG 1 EACH LOZENGE MUCOUS MEM PRN (16:17)
[2019-01-27] MEDS ORDERED: AMIODARONE 360 MG in DEXTROSE 5% IN WATER 200 ML IV PRN ×2 (16:17)
[2019-01-27] MEDS ORDERED: Potassium Replacement Protocol 1 EACH MISC MISCELLANE PRN ×2 (16:17→22:36)
[2019-01-27] MEDS ORDERED: ONDANSETRON 4 MG/2 ML VIAL IVP PRN (16:17)
[2019-01-27] MEDS ORDERED: CALCIUM GLUCONATE 2 GM in SODIUM CHLORIDE 0.9% 100 ML IVPB PRN (16:17)
[2019-01-27] MEDS ORDERED: METOCLOPRAMIDE 5 MG/ML 2 ML VIAL IVP PRN (16:17)
[2019-01-27] MEDS ORDERED: CLEVIDIPINE BUTYRATE 25 MG in EMPTY BAG 1 BAG IV SCH (16:17)
[2019-01-27 16:32] LABS: Glucose,Whole Blood 69 mg/dL (75-99)
[2019-01-27 16:34] LABS: ABG Base Excess -2.2 mmol/L; ABG HCO3 24 mmol/L (21-25); ABG Oxygen Saturation 99.8 % (94-97); ABG PCO2 51 mmHg (35-45); ABG PH 7.29 (7.35-7.45); ABG PO2 360 mmHg (83-108); ABG TCO2 26 mmol/L (19-24); Allen Test Performed? Yes
--- NOTE | 2019-01-27 16:41 | XR ---
EXAMINATION TYPE: XR chest 1V portable DATE OF EXAM: 01/27/2019 Comparison: 01/16/2019 Clinical History: 78 year old female Post Operative Cardiac Surgery Findings: ET tube is satisfactory. NG tube tip is not well-visualized but may be short. It may be at the level of the GE junction. Median sternotomy wires with post-CABG clips. Mediastinal drains and bilateral chest tubes. There is a small right apical pneumothorax measuring 8.5 mm. Heart borderline enlarged. Patchy retrocardiac density. Right IJ [place]-Donny catheter with tip in the main pulmonary outflow tract. Impression: 1. Distal aspect of the NG tube not well seen. However, it may be short with tip at the GE junction l evel. It can be further advanced by at least 9 cm and reassessed at follow-up. 2. Small right apical pneumothorax measuring 8 mm. Chest tube in place. 3. Patchy postsurgical left basilar atelectasis and trace effusion.
[2019-01-27 16:45] LABS: Ionized Calcium 5.6 mg/dL (4.5-5.3)
[2019-01-27 16:54] LABS: Glucose,Whole Blood 208 mg/dL (75-99)
[2019-01-27 16:56] LABS: Basophils % (A) 0 %; Eosinophils % (A) 0 %; HCT 30.2 % (34.0-46.0); HGB 10.4 gm/dL (11.4-16.0); Lymphocytes # (A) 1.2 k/uL (1.0-4.8); Lymphocytes % (A) 11 %; MCH 29.7 pg (25.0-35.0); MCHC 34.5 g/dL (31.0-37.0); Mean Platelet Volume 7.6; Monocytes # (A) 0.6 k/uL (0-1.0); Monocytes % (A) 5 %; Neutrophils # (A) 9.6 k/uL (1.3-7.7); Neutrophils % (A) 83 %; Platelet Count 118 k/uL (150-450); RBC 3.51 m/uL (3.80-5.40); RDW 14.1 % (11.5-15.5); WBC 11.5 k/uL (3.8-10.6)
[2019-01-27 17:00] LABS: ALT 37 U/L (9-52); AST 76 U/L (14-36); African American GFR (CKD) >90 (>60 ml/min/1.73 sqM); Albumin 2.3 g/dL (3.5-5.0); Alkaline Phosphatase 21 U/L (38-126); Anion Gap 2 mmol/L; Blood Urea Nitrogen 16 mg/dL (7-17); Calcium 8.4 mg/dL (8.4-10.2); Carbon Dioxide 25 mmol/L (22-30); Chloride 113 mmol/L (98-107); Glucose 63 mg/dL (74-99); Magnesium 2.3 mg/dL (1.6-2.3); Sodium 140 mmol/L (137-145); Total Bilirubin 0.8 mg/dL (0.2-1.3)
[2019-01-27 17:01] LABS: INR 1.3 (<1.2); Partial Thromboplastin Time 28.9 sec (22.0-30.0); Prothrombin Time 13.6 sec (9.0-12.0)
[2019-01-27 17:03] LABS: Potassium 3.9 mmol/L (3.5-5.1)
[2019-01-27 17:10] LABS: Glucose,Whole Blood 169 mg/dL (75-99)
[2019-01-27] MEDS: IPRATROPIUM-ALBUTEROL 3 ML NEB INHALATION SCH ×3 (17:28→21:16)
[2019-01-27] MEDS: LACTATED RINGERS 1,000 ML IV SCH (17:45)
[2019-01-27] MEDS: ceFAZolin IN SWFI 2 GM/20 ML SYRINGE IVP SCH (17:46)
[2019-01-27] MEDS: INSULIN REGULAR 100 UNIT in SODIUM CHLORIDE 0.9% 100 ML IV SCH (18:09)
[2019-01-27 18:28] LABS: Glucose,Whole Blood 158 mg/dL (75-99)
[2019-01-27] MEDS: ACETAMINOPHEN IV (For NPO) 1,000 MG in EMPTY BAG 1 BAG IVPB SCH (18:28)
[2019-01-27 19:17] LABS: Glucose,Whole Blood 176 mg/dL (75-99)
[2019-01-27 19:42] LABS: Basophils % (A) 0 %; Eosinophils % (A) 0 %; HCT 32.4 % (34.0-46.0); HGB 11.1 gm/dL (11.4-16.0); Lymphocytes % (A) 8 %; MCH 29.4 pg (25.0-35.0); MCHC 34.2 g/dL (31.0-37.0); MCV 86.1 fL (80.0-100.0); Mean Platelet Volume 7.5; Monocytes # (A) 0.6 k/uL (0-1.0); Monocytes % (A) 5 %; Neutrophils # (A) 10.3 k/uL (1.3-7.7); Neutrophils % (A) 85 %; Platelet Count 119 k/uL (150-450); RBC 3.76 m/uL (3.80-5.40); RDW 13.7 % (11.5-15.5)
[2019-01-27] MEDS: MORPHINE SULFATE 2 MG/ML SYRINGE IVP PRN (20:00)
[2019-01-27] MEDS ORDERED: DEXMEDETOMIDINE/0.9% NACL(PMX) 400 MCG in EMPTY BAG 1 BAG IV SCH (20:15)
[2019-01-27 20:16] LABS: Glucose,Whole Blood 185 mg/dL (75-99)
[2019-01-27] MEDS ORDERED: MUPIROCIN 2% OINT 22 GM TUBE NASAL SCH (21:00)
[2019-01-27 21:17] LABS: Glucose,Whole Blood 184 mg/dL (75-99)
[2019-01-27 22:18] LABS: Basophils % (A) 0 %; Eosinophils % (A) 0 %; HCT 30.7 % (34.0-46.0); HGB 10.2 gm/dL (11.4-16.0); Lymphocytes # (A) 0.5 k/uL (1.0-4.8); Lymphocytes % (A) 7 %; MCH 28.6 pg (25.0-35.0); MCHC 33.3 g/dL (31.0-37.0); MCV 85.8 fL (80.0-100.0); Mean Platelet Volume 8.7; Monocytes # (A) 0.4 k/uL (0-1.0); Monocytes % (A) 5 %; Neutrophils # (A) 6.8 k/uL (1.3-7.7); Neutrophils % (A) 88 %; RBC 3.58 m/uL (3.80-5.40); RDW 13.5 % (11.5-15.5); WBC 7.7 k/uL (3.8-10.6)
[2019-01-27 22:21] LABS: Glucose,Whole Blood 161 mg/dL (75-99)
[2019-01-27 22:28] LABS: Magnesium 1.9 mg/dL (1.6-2.3); Potassium 3.5 mmol/L (3.5-5.1)
[2019-01-27 23:29] LABS: Platelet Count 88 k/uL (150-450)
[2019-01-27 23:30] LABS: Anisocytosis (M) Present
[2019-01-27 23:34] LABS: Glucose,Whole Blood 133 mg/dL (75-99)
[2019-01-28 00:47] LABS: Glucose,Whole Blood 135 mg/dL (75-99)
[2019-01-28] MEDS: MAGNESIUM SULFATE-D5W PMX 1 GM in DEXTROSE/WATER 1 100ML.BAG IVPB SCH ×2 (00:56→01:57)
[2019-01-28] MEDS: POTASSIUM BICARBONATE/CIT AC 20 MEQ TABLET.EFF NG-TUBE SCH ×2 (00:56→01:58)
[2019-01-28] MEDS: HEPARIN SODIUM,PORCINE 5,000 UNIT/ML 1 ML VIAL SQ SCH ×3 (00:58→16:29)
[2019-01-28] MEDS: ACETAMINOPHEN IV (For NPO) 1,000 MG in EMPTY BAG 1 BAG IVPB SCH (00:58)
[2019-01-28 01:28] LABS: ABG Base Excess -2.2 mmol/L; ABG HCO3 23 mmol/L (21-25); ABG Oxygen Saturation 95.9 % (94-97); ABG PCO2 38 mmHg (35-45); ABG PH 7.39 (7.35-7.45); ABG PO2 74 mmHg (83-108); ABG TCO2 24 mmol/L (19-24)
[2019-01-28 01:32] LABS: Glucose,Whole Blood 195 mg/dL (75-99)
[2019-01-28] MEDS: ceFAZolin IN SWFI 2 GM/20 ML SYRINGE IVP SCH ×2 (02:02→08:47)
[2019-01-28 02:33] LABS: Glucose,Whole Blood 179 mg/dL (75-99)
[2019-01-28 03:13] LABS: Glucose,Whole Blood 158 mg/dL (75-99)
[2019-01-28] MEDS: MORPHINE SULFATE 2 MG/ML SYRINGE IVP PRN (04:13)
[2019-01-28 04:20] LABS: Glucose,Whole Blood 141 mg/dL (75-99)
[2019-01-28 04:21] LABS: Basophils % (A) 0 %; Eosinophils % (A) 1 %; HGB 9.4 gm/dL (11.4-16.0); Lymphocytes # (A) 0.6 k/uL (1.0-4.8); Lymphocytes % (A) 9 %; MCH 28.7 pg (25.0-35.0); MCHC 33.6 g/dL (31.0-37.0); MCV 85.6 fL (80.0-100.0); Mean Platelet Volume 7.8; Monocytes # (A) 0.3 k/uL (0-1.0); Monocytes % (A) 5 %; Neutrophils # (A) 5.4 k/uL (1.3-7.7); Neutrophils % (A) 85 %; RBC 3.27 m/uL (3.80-5.40); RDW 13.6 % (11.5-15.5); WBC 6.4 k/uL (3.8-10.6)
[2019-01-28 04:25] LABS: Platelet Count 79 k/uL (150-450)
[2019-01-28 04:29] LABS: Ionized Calcium 4.8 mg/dL (4.5-5.3)
[2019-01-28 04:37] LABS: ALT 45 U/L (9-52); AST 72 U/L (14-36); African American GFR (CKD) >90 (>60 ml/min/1.73 sqM); Albumin 2.7 g/dL (3.5-5.0); Alkaline Phosphatase 25 U/L (38-126); Anion Gap 6 mmol/L; Blood Urea Nitrogen 17 mg/dL (7-17); Calcium 7.6 mg/dL (8.4-10.2); Carbon Dioxide 23 mmol/L (22-30); Chloride 110 mmol/L (98-107); Glucose 125 mg/dL (74-99); Magnesium 2.5 mg/dL (1.6-2.3); Potassium 4.1 mmol/L (3.5-5.1); Sodium 139 mmol/L (137-145); Total Bilirubin 0.7 mg/dL (0.2-1.3); Total Protein 4.4 g/dL (6.3-8.2)
[2019-01-28 05:12] LABS: Glucose,Whole Blood 140 mg/dL (75-99)
[2019-01-28] MEDS: HYDROcodone/APAP 5-325MG 1 EACH TAB PO PRN ×5 (05:52→22:22)
[2019-01-28] MEDS: ALBUMIN HUMAN 5% 250 ML in EMPTY BAG 1 BAG IVPB PRN ×3 (06:02→07:07)
[2019-01-28 06:27] LABS: Glucose,Whole Blood 145 mg/dL (75-99)
[2019-01-28] MEDS: IPRATROPIUM-ALBUTEROL 3 ML NEB INHALATION SCH ×4 (06:53→19:33)
--- NOTE | 2019-01-28 07:08 | OP ---
OPERATIVE REPORT DATE OF THE SURGERY: 01/27/2019. SURGEON: Dr. Connie Johnson. T[employer]AT EXCHANGER CLEANER: TRUNG Bateman and Ky De León, nurse practitioner. PREOPERATIVE DIAGNOSES: Double-vessel coronary artery disease, obesity, hypertension, hyperlipidemia, diabetes, history of Graves disease and atrial fibrillation on presentation the morning of surgery. POSTOPERATIVE DIAGNOSES: Double-vessel coronary artery disease, obesity, hypertension, hyperlipidemia, diabetes, history of Graves disease and atrial fibrillation on presentation the morning of surgery. PROCEDURES: 1. Triple-vessel coronary artery bypass grafting using the left internal mammary artery to the left anterior descending artery, reverse saphenous vein graft from the aorta to the first diagonal artery, reverse saphenous vein graft from the aorta to the right coronary artery. 2. Bilateral pulmonary vein isolation using bipolar radiofrequency clamp. 3. Exclusion of the left atrial appendage using 45 mm AtriClip. 4. Left greater saphenous vein endoscopic harvesting. 5. Intraoperative transesophageal echocardiogram and epiaortic scanning. 6. Intraoperative graft flow measurements using the [employer] system. INDICATION FOR SURGERY: Patient is a 78-year-old lady who had a stent to her proximal RCA last year. Patient presented with chest pain. Cardiac catheterization showed in-stent stenosis as well as LAD disease involving the takeoff of a large diagonal artery. The patient is brought in today for elective coronary artery bypass grafting. In the preoperative holding area, patient was in atrial fibrillation with controlled ventricular rate, so we will be adding bilateral pulmonary vein isolation and exclusion of her left atrial appendage to her surgery. The STS risk was discussed with her and her family. They understood it and agreed to proceed. DESCRIPTION OF THE PROCEDURE: Patient in supine position, the right internal jugular [place]-Donny catheter and a right radial arterial line were placed. Cardiac index was 2.4 and PA pressure were normal. Subsequently, she was brought to the operating room where general endotracheal anesthesia was induced uneventfully. She received 2 grams of cefazolin. Curtis inserted. The chest, abdomen and both lower extremities were prepped and draped using ChloraPrep. Ioban was used to cover the skin. Transesophageal echocardiogram confirmed the preoperative finding of preserved function and no significant valvular abnormality. Midline sternotomy was performed and the bone was osteoporotic. The left hemisternum was elevated and the left internal mammary artery was harvested in a somewhat skeletonized fashion. The left pleura was intentionally opened in this process and was drained with a 28-Egyptian chest tube. The right pleura had a breach in it and it was also drained with another 28-Egyptian chest tube. In the same setting, the left greater saphenous vein was harvested endoscopically from groin to above ankle level. The vein was usable only in its lower part as it was thin and large in the thigh part. The leg incisions were closed over a drain. Mediastinal fat was transected between 2 ties and epiaortic scanning revealed some posterior wall disease, however, no protruding atheroma. The pericardium was opened in an inverted T-fashion and a pericardial cradle was created. Findings Included a small fatty heart and mildly enlarged aorta that was soft. After systemic heparinization and after placement of respective pledgeted pursestrings, aortic cannulation with a 21-Egyptian Soft-Flow cannula and venous cannulation via the right atrial appendage was performed. Antegrade as well as retrograde cardioplegia catheters were placed. The mammary artery was clipped distally and transected had an excellent pulsatile flow in it and was relatively small, around 1.25 mm in diameter. Cardiopulmonary bypass was initiated and in view of the patient body habitus, I had to arrest the heart before proceeding with any pulmonary vein isolation. The protection was achieved with initial dose of antegrade cold blood cardioplegia followed by dose of retrograde cold blood cardioplegia. All subsequent doses were given retrograde at 15 minutes interval. The first part of the surgery was performed. The bilateral pulmonary vein isolation using the AtriCure radiofrequency bipolar clamp. The right-sided pulmonary vein was isolated and ablated with a single application of the clamp 3 times. The same was done on the left side after incising the ligament of Tommy with a Bovie. The left atrial appendage was excluded with a 45 mm AtriClip. Subsequently, we proceeded at performing the distal anastomosis of the vein graft to the RCA beyond the acute margin, which was around 2.5 mm in diameter and thin- walled at that level using Prolene 7-0 in continuous fashion. The second distal anastomosis was between the diagonal artery that was very hard to find in view of its deep intra-epicardial position , and the diagonal was found before it bifurcated and had posterior disease in it and was around 1.5 mm in diameter and the anastomosis was completed using Prolene 7- 0 in continuous fashion. The third and last distal anastomosis was between the left internal mammary artery and the mid aspect of the left anterior descending artery which was also found intra-epicardially, which was around 1.5 mm in diameter and with some thickened wall. The anatomy would not present itself for any potential SANDOVAL sequential anastomosis in view of the deep position of the diagonal artery in the fat. Satisfied with the distal anastomosis, we punched out 2 buttons of the proximal aorta and performed the 2 proximal anastomosis of the vein graft using Prolene 6-0 in continuous fashion. Patient was given lidocaine and magnesium and de-airing maneuvers were done before unclamping of the aorta. She regained spontaneous sinus rhythm. After a period of reperfusion, we were able to wean off cardiopulmonary bypass with the need of vasopressor support only. The AGATHA showed good LV function. She was vasodilated. Graft flow measurements revealed excellent flow in the diagonal artery with a flow of 55 mL/minute, pulsatility index of 1.8, diastolic filling of 77%. The flow into the vein going to the RCA was 166 mL/minute, pulsatility index of 0.9, diastolic filling of 62%. The flow into the mammary artery to the left anterior descending artery was around 80 mL/minute with some evidence of competitive flow showing a patent graft. With that, test dose and full dose protamine was given. Decannulation followed. The venous cannulation as well as the aortic cannulation site needed reinforcement. Two monopolar atrial pacing wires were affixed to the right atrial pursestring. No V wire was placed as the RV was small and the surface hypervascularized. One 32-Egyptian substernal chest tube was placed. Pericardial fat was approximated over the heart. A groove was made in the left pleuropericardial fat to accommodate the mammary artery medial to the lung and away from the posterior sternal table. In view of the patient's body habitus, the diagonal artery vein graft was riding high as well as the mammary artery and I passed mediastinal fat underneath the vein to avoid any kinking, then covered it with mediastinal fat. After ensuring adequate hemostasis, hemodynamics and after correct sponge, instrument, and needle count, the sternum was closed using 5 [id number] [place] cable after interposing Fibrillar between the sternal edges. Thorough irrigation with cefazolin followed. The rest of the closure proceeded in layers. Skin glue was applied. The patient did not receive any blood bank product, but received Cell Saver blood. She was transferred to the ICU on Alex-Synephrine and with a cardiac index of 2, PA pressure of 25/10, and in sinus rhythm. WSETON / ESAUN: [id number] / DONA
[2019-01-28 07:27] LABS: Glucose,Whole Blood 136 mg/dL (75-99)
--- NOTE | 2019-01-28 07:48 | XR ---
EXAMINATION TYPE: XR chest 1V portable DATE OF EXAM: 01/28/2019 COMPARISON: 01/27/2019 HISTORY: Postoperative cardiac surgery. Follow-up exam. TECHNIQUE: Single frontal view of the chest is obtained. FINDINGS: [place]-Donny catheter, mediastinal drain, left thoracostomy tube, post-CABG changes of the ch est, and right thoracostomy tube are unchanged in position. Enteric and endotracheal tubes have been removed in the interim. Similar-appearing blunting of the costophrenic angles and left basilar/retroc ardiac airspace disease. No [place] pulmonary vascular congestion. Cardiomediastinal silhouette is part ially obscured. No residual pneumothorax seen on today's examination. The previously seen trace right pneumothorax is not redemonstrated. IMPRESSION: 1. Interval extubation and removal of the enteric tube. Trace pleural effusions and left basilar line ar airspace disease, likely postsurgical atelectasis. Remain unchanged. 2. Resolution the previously seen trace right apical pneumothorax. Stable placement of a thoracostomy tubes.
[2019-01-28] MEDS: METOPROLOL TARTRATE 12.5 MG TAB PO SCH ×2 (08:23→20:35)
[2019-01-28] MEDS: CHOLECALCIFEROL 1,000 UNIT TAB PO SCH (08:23)
[2019-01-28] MEDS: ASPIRIN 325 MG TAB PO SCH (08:23)
[2019-01-28] MEDS: CLOPIDOGREL 75 MG TAB PO SCH (08:23)
[2019-01-28] MEDS: MULTIVITAMINS, THERA 1 EACH TAB PO SCH (08:23)
[2019-01-28] MEDS: ATORVASTATIN 40 MG TAB PO SCH (08:24)
[2019-01-28] MEDS: PANTOPRAZOLE 40 MG TABLET PO SCH (08:24)
[2019-01-28 08:30] LABS: Glucose,Whole Blood 122 mg/dL (75-99)
[2019-01-28] MEDS ORDERED: PANTOPRAZOLE 40 MG/10 ML VIAL IVP SCH (09:00)
[2019-01-28] MEDS ORDERED: MAGNESIUM HYDROXIDE 2,400 MG/10 ML CUP PO PRN (09:00)
[2019-01-28] MEDS ORDERED: BISACODYL 10 MG SUPP RECTAL PRN (09:00)
[2019-01-28 09:05] LABS: Glucose,Whole Blood 110 mg/dL (75-99)
--- NOTE | 2019-01-28 09:13 | P.CONS ---
History of Present Illness - Reason for Consult Consult date: 01/28/19 Medical management Requesting physician: Naomie Cormier - History of Present Illness This is a 78-year-old female patient who presented for triple bypass coronary artery bypass graft surgery with Dr. Johnson on 01/27/2019. Patient recently underwent cardiac catheterization in which showed in-stent stenosis as well as a LAD disease involving the takeoff of a large diagonal artery. Patient has a kn own past medical history of coronary artery disease with stent of the RCA last year, diabetes mellitus, hyperlipidemia, hypertension, osteoarthritis, Graves' disease and ex-smoker. Patient is currently postop day 1. Patient has been extubated per protocol. Patient is currently sitting up in chair. Patient stresses that she is having some increased discomfort. Patient remains on insulin drip. Discussed with cardiothoracic team plans to remove mediastinal chest tube and Dawson today. Incentive spirometer encouraged. Review of Systems Please refer to HPI otherwise unremarkable Past Medical History Past Medical History: Diabetes Mellitus, Hyperlipidemia, Hypertension, Osteoarthritis (OA), Thyroid Disorder Additional Past Medical History / Comment(s): KIDNEY STONES , DIET CONTROLLED DIABETIC, PAST HISTORY OF GRAVES DISEASE History of Any Multi-Drug Resistant Organisms: None Reported Past Surgical History: Appendectomy, Cholecystectomy, Heart Catheterization, Heart Catheterization With Stent Additional Past Surgical History / Comment(s): RIGHT KNEE ARTHROSCOPIC Past Anesthesia/Blood Transfusion Reactions: Family History of Problems w/ Anesthesia, Motion Sickness Additional Past Anesthesia/Blood Transfusion Reaction / Comm: brother had problems w/anesthesia-not sure what they were Date of Last Stent Placement:: MAY 07 2018 Smoking Status: Former smoker - Past Family History Father Family Medical History: Cancer Mother Family Medical History: Coronary Artery Disease (CAD), Myocardial Infarction (OR) Brother(s) Family Medical History: AICD/Pacemaker, Coronary Artery Disease (CAD) Medications and Allergies Home Medications Medication Instructions Recorded Confirmed Type Aspirin [Adult Low Dose Aspirin EC] 81 mg PO DAILY 05/05/18 01/27/19 History Calcium Carbonate [Calcium] 1,200 mg PO BID 05/05/18 01/27/19 History Carvedilol [Coreg] 6.25 mg PO BID 05/05/18 01/27/19 History Cholecalciferol (Vitamin D3) 2,000 unit PO DAILY 05/05/18 01/27/19 History [Vitamin D3] Glucosam/Demian-Msm1/C/Errol/Bosw 1 tab PO DAILY 05/05/18 01/27/19 History [Glucosamine-Chondroitin Tablet] Lisinopril-Hctz 20-25 mg 1 tab PO QAM 05/05/18 01/27/19 History [Zestoretic 20-25] Loperamide [Imodium] 4 mg PO BID 05/05/18 01/27/19 History Multivitamins, Thera [Multivitamin 1 tab PO DAILY 05/05/18 01/27/19 History (formulary)] Potassium Chloride ER [K-Dur 10] 10 meq PO QAM 05/05/18 01/27/19 History amLODIPine [Norvasc] 2.5 mg PO HS 05/05/18 01/27/19 History Atorvastatin [Lipitor] 80 mg PO HS #90 tab 05/08/18 01/27/19 Rx Nitroglycerin Sl Tabs [Nitrostat] 0.4 mg SUBLINGUAL Q5M PRN #25 tab 05/08/18 01/27/19 Rx Clopidogrel [Plavix] 75 mg PO DAILY 01/21/19 01/27/19 History Isosorbide Mononitrate [Isosorbide 30 mg PO DAILY 01/21/19 01/27/19 History Mononitrate ER] Allergies Allergy/AdvReac Type Severity Reaction Status Date / Time adhesive Allergy BLISTERS Verified 01/27/19 08:56 Physical Exam Vitals: Vital Signs Pulse Resp BP Pulse Ox 01/28/19 07:00 80 21 95/53 97 01/28/19 06:54 80 01/28/19 06:48 80 01/28/19 06:00 80 25 H 99/62 98 01/28/19 05:00 80 12 94 L 01/28/19 04:00 80 19 95/55 94 L 01/28/19 03:00 80 18 95/59 93 L 01/28/19 02:00 80 21 118/76 95 01/28/19 01:00 80 35 H 108/61 95 01/28/19 00:00 80 19 107/62 95 01/27/19 23:38 80 22 107/62 96 01/27/19 23:21 80 01/27/19 23:09 80 01/27/19 23:00 80 20 102/68 96 01/27/19 22:00 80 20 102/57 94 L 01/27/19 21:00 80 20 104/59 96 01/27/19 20:06 80 01/27/19 20:00 80 24 114/66 97 01/27/19 19:00 80 11 L 111/61 95 01/27/19 18:00 80 21 116/42 97 01/27/19 17:38 80 01/27/19 17:30 80 01/27/19 17:00 80 18 119/65 100 Intake and Output 01/27/19 01/28/19 01/28/19 22:59 06:59 14:59 Intake Total 590.688 877.543 305.648 Output Total 5382 795 43 Balance -4791.312 82.543 262.648 Intake: IV 560 810 300 Albumin Human 5% 250 ml 250 250 In Empty Bag 1 bag @ 250 mls/hr IVPB Q1HR PRN Rx#: [id number] CO/CI 210 180 LR 350 380 50 Intake, IV Titration 30.688 67.543 5.648 Amount Clevidipine Butyrate 25 12.500 mg In Empty Bag 1 bag @ 1 MG/HR 2 mls/hr IV .Q24H [facility] Rx#:[id number] Dexmedetomidine/0.9% NaCl 43.309 (Pmx) 400 mcg In Empty Bag 1 bag @ Titrate IV . Q0M [facility] Rx#:[id number] Insulin Regular 100 unit 11.822 24.234 5.648 In Sodium Chloride 0.9% 100 ml @ Per Protocol IV .Q0M [facility] Rx#:[id number] Propofol 1,000 mg In 6.366 Empty Bag 1 bag @ Titrate IV .Q0M [facility] Rx#: [id number] Output: Chest Tube Drainage 452 348 18 Left Pleural 113 64 2 Mediastinal 149 205 10 Right Pleural 190 79 6 Drainage 80 10 Left Leg DANIELA 80 10 Urine 1430 367 15 Estimated Blood Loss 3500 Other: Voiding Method Indwelling Catheter Indwelling Catheter Weight 81.6 kg ABP, PAP, CO, CI - Last 8 Hours Arterial Blood Pressure 96/44 Arterial Blood Pressure 113/54 Arterial Blood Pressure 122/58 Arterial Blood Pressure 110/50 Arterial Blood Pressure 104/47 Arterial Blood Pressure 98/47 Pulmonary Artery Pressure 19/9 Pulmonary Artery Pressure 23/12 Pulmonary Artery Pressure 26/16 Pulmonary Artery Pressure 19/10 Pulmonary Artery Pressure 17/9 Pulmonary Artery Pressure 19/9 Cardiac Output 4.4 Cardiac Output 4.4 Cardiac Output 4.9 Cardiac Index 2.1 Cardiac Index 2.2 Cardiac Index 2.5 Head normocephalic Neck supple Lungs clear to auscultation bilaterally no wheezing or crackles Heart regular rate and rhythm S1-S2, no rub or gallop Abdomen is soft nontender nondistended positive bowel sounds no hepatosplenomegaly Extremities no edema Neuro alert and orientated to [address] Sternal dressing clean dry and intact heart hugger in place Results CBC & Chem 7: 01/28/19 04:10 01/28/19 04:10 Labs: Abnormal Lab Results - Last 24 Hours (Table) 01/19/19 01/27/19 01/27/19 Range/Units 16:57 08:41 10:50 WBC (3.8-10.6) k/uL RBC (3.80-5.40) m/uL Hgb (11.4-16.0) gm/dL Hct (34.0-46.0) % Plt Count (150-450) k/uL Neutrophils # (1.3-7.7) k/uL Lymphocytes # (1.0-4.8) k/uL PT (9.0-12.0) sec INR (<1.2) ABG pH (7.35-7.45) ABG pCO2 (35-45) mmHg ABG pO2 280 H 210 H (83-108) mmHg ABG HCO3 26 H 26 H (21-25) mmol/L ABG Total CO2 28 H 27 H (19-24) mmol/L ABG O2 Saturation 100.0 H 100.0 H (94-97) % ABG Hematocrit (34.0-46.0) % ABG Sodium (135-146) mmol/L ABG Potassium (3.4-4.5) mmol/L ABG Ionized Calcium (4.5-5.3) mg/dL ABG Glucose 146 H 156 H (75-99) mg/dL ABG Lactic Acid 1.9 H (0.5-1.6) mmol/L Hemoglobin (11.4-16.0) gm/dL Chloride (98-107) mmol/L Glucose (74-99) mg/dL POC Glucose (mg/dL) (75-99) mg/dL Calcium (8.4-10.2) mg/dL Ionized Calcium Emory (4.5-5.3) mg/dL Magnesium (1.6-2.3) mg/dL AST (14-36) U/L Alkaline Phosphatase (38-126) U/L Total Protein (6.3-8.2) g/dL Albumin (3.5-5.0) g/dL Arterial Blood Potassium (3.4-4.5) mmol/L Arterial Blood Glucose 146 H 156 H (75-99) mg/dL Crossmatch See Detail 01/27/19 01/27/19 01/27/19 Range/Units 11:48 12:41 13:08 WBC (3.8-10.6) k/uL RBC (3.80-5.40) m/uL Hgb (11.4-16.0) gm/dL Hct (34.0-46.0) % Plt Count (150-450) k/uL Neutrophils # (1.3-7.7) k/uL Lymphocytes # (1.0-4.8) k/uL PT (9.0-12.0) sec INR (<1.2) ABG pH 7.34 L (7.35-7.45) ABG pCO2 47 H (35-45) mmHg ABG pO2 297 H 352 H 314 H (83-108) mmHg ABG HCO3 26 H 26 H (21-25) mmol/L ABG Total CO2 27 H 27 H 27 H (19-24) mmol/L ABG O2 Saturation 100.0 H 100.0 H 100.0 H (94-97) % ABG Hematocrit 27 L 25 L 25 L (34.0-46.0) % ABG Sodium 134 L (135-146) mmol/L ABG Potassium 4.9 H (3.4-4.5) mmol/L ABG Ionized Calcium 4.1 L 4.2 L 4.3 L (4.5-5.3) mg/dL ABG Glucose 251 H 248 H 202 H (75-99) mg/dL ABG Lactic Acid 1.7 H 1.9 H (0.5-1.6) mmol/L Hemoglobin 8.6 L 8.0 L 8.2 L (11.4-16.0) gm/dL Chloride (98-107) mmol/L Glucose (74-99) mg/dL POC Glucose (mg/dL) (75-99) mg/dL Calcium (8.4-10.2) mg/dL Ionized Calcium Emory (4.5-5.3) mg/dL Magnesium (1.6-2.3) mg/dL AST (14-36) U/L Alkaline Phosphatase (38-126) U/L Total Protein (6.3-8.2) g/dL Albumin (3.5-5.0) g/dL Arterial Blood Potassium 4.9 H (3.4-4.5) mmol/L Arterial Blood Glucose 251 H 248 H 202 H (75-99) mg/dL Crossmatch 01/27/19 01/27/19 01/27/19 Range/Units 14:46 16:15 16:15 WBC 11.5 H (3.8-10.6) k/uL RBC 3.51 L (3.80-5.40) m/uL Hgb 10.4 L (11.4-16.0) gm/dL Hct 30.2 L (34.0-46.0) % Plt Count 118 L (150-450) k/uL Neutrophils # 9.6 H (1.3-7.7) k/uL Lymphocytes # (1.0-4.8) k/uL PT (9.0-12.0) sec INR (<1.2) ABG pH (7.35-7.45) ABG pCO2 46 H (35-45) mmHg ABG pO2 (83-108) mmHg ABG HCO3 (21-25) mmol/L ABG Total CO2 27 H (19-24) mmol/L ABG O2 Saturation 97.9 H (94-97) % ABG Hematocrit 30 L (34.0-46.0) % ABG Sodium (135-146) mmol/L ABG Potassium 3.1 L (3.4-4.5) mmol/L ABG Ionized Calcium 4.1 L (4.5-5.3) mg/dL ABG Glucose 121 H (75-99) mg/dL ABG Lactic Acid 1.7 H (0.5-1.6) mmol/L Hemoglobin 9.7 L (11.4-16.0) gm/dL Chloride 113 H (98-107) mmol/L Glucose 63 L (74-99) mg/dL POC Glucose (mg/dL) (75-99) mg/dL Calcium (8.4-10.2) mg/dL Ionized Calcium Emory 5.6 H (4.5-5.3) mg/dL Magnesium (1.6-2.3) mg/dL AST 76 H (14-36) U/L Alkaline Phosphatase 21 L (38-126) U/L Total Protein 4.0 L (6.3-8.2) g/dL Albumin 2.3 L (3.5-5.0) g/dL Arterial Blood Potassium 3.1 L (3.4-4.5) mmol/L Arterial Blood Glucose 121 H (75-99) mg/dL Crossmatch 01/27/19 01/27/19 01/27/19 Range/Units 16:15 16:16 16:31 WBC (3.8-10.6) k/uL RBC (3.80-5.40) m/uL Hgb (11.4-16.0) gm/dL Hct (34.0-46.0) % Plt Count (150-450) k/uL Neutrophils # (1.3-7.7) k/uL Lymphocytes # (1.0-4.8) k/uL PT 13.6 H (9.0-12.0) sec INR 1.3 H (<1.2) ABG pH 7.29 L (7.35-7.45) ABG pCO2 51 H (35-45) mmHg ABG pO2 360 H (83-108) mmHg ABG HCO3 (21-25) mmol/L ABG Total CO2 26 H (19-24) mmol/L ABG O2 Saturation 99.8 H (94-97) % ABG Hematocrit (34.0-46.0) % ABG Sodium (135-146) mmol/L ABG Potassium (3.4-4.5) mmol/L ABG Ionized Calcium (4.5-5.3) mg/dL ABG Glucose (75-99) mg/dL ABG Lactic Acid (0.5-1.6) mmol/L Hemoglobin (11.4-16.0) gm/dL Chloride (98-107) mmol/L Glucose (74-99) mg/dL POC Glucose (mg/dL) 69 L (75-99) mg/dL Calcium (8.4-10.2) mg/dL Ionized Calcium Emory (4.5-5.3) mg/dL Magnesium (1.6-2.3) mg/dL AST (14-36) U/L Alkaline Phosphatase (38-126) U/L Total Protein (6.3-8.2) g/dL Albumin (3.5-5.0) g/dL Arterial Blood Potassium (3.4-4.5) mmol/L Arterial Blood Glucose (75-99) mg/dL Crossmatch 01/27/19 01/27/19 01/27/19 Range/Units 16:41 16:59 18:15 WBC (3.8-10.6) k/uL RBC (3.80-5.40) m/uL Hgb (11.4-16.0) gm/dL Hct (34.0-46.0) % Plt Count (150-450) k/uL Neutrophils # (1.3-7.7) k/uL Lymphocytes # (1.0-4.8) k/uL PT (9.0-12.0) sec INR (<1.2) ABG pH (7.35-7.45) ABG pCO2 (35-45) mmHg ABG pO2 (83-108) mmHg ABG HCO3 (21-25) mmol/L ABG Total CO2 (19-24) mmol/L ABG O2 Saturation (94-97) % ABG Hematocrit (34.0-46.0) % ABG Sodium (135-146) mmol/L ABG Potassium (3.4-4.5) mmol/L ABG Ionized Calcium (4.5-5.3) mg/dL ABG Glucose (75-99) mg/dL ABG Lactic Acid (0.5-1.6) mmol/L Hemoglobin (11.4-16.0) gm/dL Chloride (98-107) mmol/L Glucose (74-99) mg/dL POC Glucose (mg/dL) 208 H 169 H 158 H (75-99) mg/dL Calcium (8.4-10.2) mg/dL Ionized Calcium Emory (4.5-5.3) mg/dL Magnesium (1.6-2.3) mg/dL AST (14-36) U/L Alkaline Phosphatase (38-126) U/L Total Protein (6.3-8.2) g/dL Albumin (3.5-5.0) g/dL Arterial Blood Potassium (3.4-4.5) mmol/L Arterial Blood Glucose (75-99) mg/dL Crossmatch 01/27/19 01/27/19 01/27/19 Range/Units 19:00 19:03 20:05 WBC 12.0 H (3.8-10.6) k/uL RBC 3.76 L (3.80-5.40) m/uL Hgb 11.1 L (11.4-16.0) gm/dL Hct 32.4 L (34.0-46.0) % Plt Count 119 L (150-450) k/uL Neutrophils # 10.3 H (1.3-7.7) k/uL Lymphocytes # (1.0-4.8) k/uL PT (9.0-12.0) sec INR (<1.2) ABG pH (7.35-7.45) ABG pCO2 (35-45) mmHg ABG pO2 (83-108) mmHg ABG HCO3 (21-25) mmol/L ABG Total CO2 (19-24) mmol/L ABG O2 Saturation (94-97) % ABG Hematocrit (34.0-46.0) % ABG Sodium (135-146) mmol/L ABG Potassium (3.4-4.5) mmol/L ABG Ionized Calcium (4.5-5.3) mg/dL ABG Glucose (75-99) mg/dL ABG Lactic Acid (0.5-1.6) mmol/L Hemoglobin (11.4-16.0) gm/dL Chloride (98-107) mmol/L Glucose (74-99) mg/dL POC Glucose (mg/dL) 176 H 185 H (75-99) mg/dL Calcium (8.4-10.2) mg/dL Ionized Calcium Emory (4.5-5.3) mg/dL Magnesium (1.6-2.3) mg/dL AST (14-36) U/L Alkaline Phosphatase (38-126) U/L Total Protein (6.3-8.2) g/dL Albumin (3.5-5.0) g/dL Arterial Blood Potassium (3.4-4.5) mmol/L Arterial Blood Glucose (75-99) mg/dL Crossmatch 01/27/19 01/27/19 01/27/19 Range/Units 21:06 22:10 22:10 WBC (3.8-10.6) k/uL RBC 3.58 L (3.80-5.40) m/uL Hgb 10.2 L (11.4-16.0) gm/dL Hct 30.7 L (34.0-46.0) % Plt Count 88 L (150-450) k/uL Neutrophils # (1.3-7.7) k/uL Lymphocytes # 0.5 L (1.0-4.8) k/uL PT (9.0-12.0) sec INR (<1.2) ABG pH (7.35-7.45) ABG pCO2 (35-45) mmHg ABG pO2 (83-108) mmHg ABG HCO3 (21-25) mmol/L ABG Total CO2 (19-24) mmol/L ABG O2 Saturation (94-97) % ABG Hematocrit (34.0-46.0) % ABG Sodium (135-146) mmol/L ABG Potassium (3.4-4.5) mmol/L ABG Ionized Calcium (4.5-5.3) mg/dL ABG Glucose (75-99) mg/dL ABG Lactic Acid (0.5-1.6) mmol/L Hemoglobin (11.4-16.0) gm/dL Chloride (98-107) mmol/L Glucose (74-99) mg/dL POC Glucose (mg/dL) 184 H 161 H (75-99) mg/dL Calcium (8.4-10.2) mg/dL Ionized Calcium Emory (4.5-5.3) mg/dL Magnesium (1.6-2.3) mg/dL AST (14-36) U/L Alkaline Phosphatase (38-126) U/L Total Protein (6.3-8.2) g/dL Albumin (3.5-5.0) g/dL Arterial Blood Potassium (3.4-4.5) mmol/L Arterial Blood Glucose (75-99) mg/dL Crossmatch 01/27/19 01/28/19 01/28/19 Range/Units 23:22 00:36 01:18 WBC (3.8-10.6) k/uL RBC (3.80-5.40) m/uL Hgb (11.4-16.0) gm/dL Hct (34.0-46.0) % Plt Count (150-450) k/uL Neutrophils # (1.3-7.7) k/uL Lymphocytes # (1.0-4.8) k/uL PT (9.0-12.0) sec INR (<1.2) ABG pH (7.35-7.45) ABG pCO2 (35-45) mmHg ABG pO2 74 L (83-108) mmHg ABG HCO3 (21-25) mmol/L ABG Total CO2 (19-24) mmol/L ABG O2 Saturation (94-97) % ABG Hematocrit (34.0-46.0) % ABG Sodium (135-146) mmol/L ABG Potassium (3.4-4.5) mmol/L ABG Ionized Calcium (4.5-5.3) mg/dL ABG Glucose (75-99) mg/dL ABG Lactic Acid (0.5-1.6) mmol/L Hemoglobin (11.4-16.0) gm/dL Chloride (98-107) mmol/L Glucose (74-99) mg/dL POC Glucose (mg/dL) 133 H 135 H (75-99) mg/dL Calcium (8.4-10.2) mg/dL Ionized Calcium Emory (4.5-5.3) mg/dL Magnesium (1.6-2.3) mg/dL AST (14-36) U/L Alkaline Phosphatase (38-126) U/L Total Protein (6.3-8.2) g/dL Albumin (3.5-5.0) g/dL Arterial Blood Potassium (3.4-4.5) mmol/L Arterial Blood Glucose (75-99) mg/dL Crossmatch 01/28/19 01/28/19 01/28/19 Range/Units 01:21 02:14 03:01 WBC (3.8-10.6) k/uL RBC (3.80-5.40) m/uL Hgb (11.4-16.0) gm/dL Hct (34.0-46.0) % Plt Count (150-450) k/uL Neutrophils # (1.3-7.7) k/uL Lymphocytes # (1.0-4.8) k/uL PT (9.0-12.0) sec INR (<1.2) ABG pH (7.35-7.45) ABG pCO2 (35-45) mmHg ABG pO2 (83-108) mmHg ABG HCO3 (21-25) mmol/L ABG Total CO2 (19-24) mmol/L ABG O2 Saturation (94-97) % ABG Hematocrit (34.0-46.0) % ABG Sodium (135-146) mmol/L ABG Potassium (3.4-4.5) mmol/L ABG Ionized Calcium (4.5-5.3) mg/dL ABG Glucose (75-99) mg/dL ABG Lactic Acid (0.5-1.6) mmol/L Hemoglobin (11.4-16.0) gm/dL Chloride (98-107) mmol/L Glucose (74-99) mg/dL POC Glucose (mg/dL) 195 H 179 H 158 H (75-99) mg/dL Calcium (8.4-10.2) mg/dL Ionized Calcium Emory (4.5-5.3) mg/dL Magnesium (1.6-2.3) mg/dL AST (14-36) U/L Alkaline Phosphatase (38-126) U/L Total Protein (6.3-8.2) g/dL Albumin (3.5-5.0) g/dL Arterial Blood Potassium (3.4-4.5) mmol/L Arterial Blood Glucose (75-99) mg/dL Crossmatch 01/28/19 01/28/19 01/28/19 Range/Units 04:09 04:10 04:10 WBC (3.8-10.6) k/uL RBC 3.27 L (3.80-5.40) m/uL Hgb 9.4 L (11.4-16.0) gm/dL Hct 28.0 L (34.0-46.0) % Plt Count 79 L (150-450) k/uL Neutrophils # (1.3-7.7) k/uL Lymphocytes # 0.6 L (1.0-4.8) k/uL PT (9.0-12.0) sec INR (<1.2) ABG pH (7.35-7.45) ABG pCO2 (35-45) mmHg ABG pO2 (83-108) mmHg ABG HCO3 (21-25) mmol/L ABG Total CO2 (19-24) mmol/L ABG O2 Saturation (94-97) % ABG Hematocrit (34.0-46.0) % ABG Sodium (135-146) mmol/L ABG Potassium (3.4-4.5) mmol/L ABG Ionized Calcium (4.5-5.3) mg/dL ABG Glucose (75-99) mg/dL ABG Lactic Acid (0.5-1.6) mmol/L Hemoglobin (11.4-16.0) gm/dL Chloride 110 H (98-107) mmol/L Glucose 125 H (74-99) mg/dL POC Glucose (mg/dL) 141 H (75-99) mg/dL Calcium 7.6 L (8.4-10.2) mg/dL Ionized Calcium Emory (4.5-5.3) mg/dL Magnesium 2.5 H (1.6-2.3) mg/dL AST 72 H (14-36) U/L Alkaline Phosphatase 25 L (38-126) U/L Total Protein 4.4 L (6.3-8.2) g/dL Albumin 2.7 L (3.5-5.0) g/dL Arterial Blood Potassium (3.4-4.5) mmol/L Arterial Blood Glucose (75-99) mg/dL Crossmatch 01/28/19 01/28/19 01/28/19 Range/Units 05:01 06:16 07:16 WBC (3.8-10.6) k/uL RBC (3.80-5.40) m/uL Hgb (11.4-16.0) gm/dL Hct (34.0-46.0) % Plt Count (150-450) k/uL Neutrophils # (1.3-7.7) k/uL Lymphocytes # (1.0-4.8) k/uL PT (9.0-12.0) sec INR (<1.2) ABG pH (7.35-7.45) ABG pCO2 (35-45) mmHg ABG pO2 (83-108) mmHg ABG HCO3 (21-25) mmol/L ABG Total CO2 (19-24) mmol/L ABG O2 Saturation (94-97) % ABG Hematocrit (34.0-46.0) % ABG Sodium (135-146) mmol/L ABG Potassium (3.4-4.5) mmol/L ABG Ionized Calcium (4.5-5.3) mg/dL ABG Glucose (75-99) mg/dL ABG Lactic Acid (0.5-1.6) mmol/L Hemoglobin (11.4-16.0) gm/dL Chloride (98-107) mmol/L Glucose (74-99) mg/dL POC Glucose (mg/dL) 140 H 145 H 136 H (75-99) mg/dL Calcium (8.4-10.2) mg/dL Ionized Calcium Emory (4.5-5.3) mg/dL Magnesium (1.6-2.3) mg/dL AST (14-36) U/L Alkaline Phosphatase (38-126) U/L Total Protein (6.3-8.2) g/dL Albumin (3.5-5.0) g/dL Arterial Blood Potassium (3.4-4.5) mmol/L Arterial Blood Glucose (75-99) mg/dL Crossmatch 01/28/19 Range/Units 08:18 WBC (3.8-10.6) k/uL RBC (3.80-5.40) m/uL Hgb (11.4-16.0) gm/dL Hct (34.0-46.0) % Plt Count (150-450) k/uL Neutrophils # (1.3-7.7) k/uL Lymphocytes # (1.0-4.8) k/uL PT (9.0-12.0) sec INR (<1.2) ABG pH (7.35-7.45) ABG pCO2 (35-45) mmHg ABG pO2 (83-108) mmHg ABG HCO3 (21-25) mmol/L ABG Total CO2 (19-24) mmol/L ABG O2 Saturation (94-97) % ABG Hematocrit (34.0-46.0) % ABG Sodium (135-146) mmol/L ABG Potassium (3.4-4.5) mmol/L ABG Ionized Calcium (4.5-5.3) mg/dL ABG Glucose (75-99) mg/dL ABG Lactic Acid (0.5-1.6) mmol/L Hemoglobin (11.4-16.0) gm/dL Chloride (98-107) mmol/L Glucose (74-99) mg/dL POC Glucose (mg/dL) 122 H (75-99) mg/dL Calcium (8.4-10.2) mg/dL Ionized Calcium [place] (4.5-5.3) mg/dL Magnesium (1.6-2.3) mg/dL AST (14-36) U/L Alkaline Phosphatase (38-126) U/L Total Protein (6.3-8.2) g/dL Albumin (3.5-5.0) g/dL Arterial Blood Potassium (3.4-4.5) mmol/L Arterial Blood Glucose (75-99) mg/dL Crossmatch Assessment and Plan Assessment: 1. Status post coronary artery bypass graft surgery triple-vessel. Patient is currently postop day 1. Patient has been estimated per protocol. Critical care services are following 2. Coronary artery disease with previous stents to RCA 3. History of Graves' disease. 4. Ex-smoker 5. Diabetes mellitus. Hemoglobin A1c 7.6 on 01/16/2019. Patient currently on insulin drip 6. History of essential hypertension 7. History of osteoarthritis 8. History of hyperlipidemia DVT prophylaxis heparin. GI prophylaxis Protonix Thank you for this consultation we'll continue to follow patient closely throughout stay Time with Patient: Greater than 30 (Greater than 60% of the total time spent in counseling and coordination of care. I performed an examination of the patient and discussed their management with the Nurse Practitioner. I have reviewed the Nurse Practitioner's notes and agree with the documented findings and plan of care)
[2019-01-28 10:25] LABS: Glucose,Whole Blood 131 mg/dL (75-99)
--- NOTE | 2019-01-28 10:42 | P.PN ---
Subjective Progress Note Date: 01/28/19 Principal diagnosis: Coronary artery disease with previous stenting to the RCA in April 2018, preserved left ventricular function, obesity, hypertension, hyperlipidemia, diabetes with preoperative hemoglobin A1c 7.6%, history of Graves' disease, previous tobacco dependence, mild COPD with preoperative FEV1 75% of predicted, atrial fibrillation on presentation the morning of surgery, family history of premature coronary artery disease. POD #1 triple vessel coronary artery bypass grafting using the left internal mammary artery to the left anterior descending artery, reverse saphenous vein graft from the aorta to the first diagonal artery, reverse saphenous vein graft from the aorta to the right coronary artery. Bilateral pulmonary vein isolation using bipolar radiofrequency clamp. Exclusion of the left atrial appendage using 45 mm AtriClip. Left greater saphenous vein endoscopic harvesting from the groin to above the ankle level. Intraoperative transesophageal echocardiogram and epi-aortic scanning. The patient currently sitting up in a recliner in the intensive care unit in no acute distress. She was successfully extubated at 1:41 this morning. She does complain of postsurgical type pain, denies shortness of breath. Currently atrially paced, underlying rhythm sinus rhythm. Remains hemodynamically stable on no inotropes or pressors. Mediastinal, left, right pleural chest tubes in place. No new complaints. Objective - Vital Signs Vital signs: Vital Signs Temp 99.5 F 01/28/19 08:00 Pulse 80 01/28/19 09:00 Resp 27 H 01/28/19 09:00 BP 113/59 01/28/19 09:00 Pulse Ox 96 01/28/19 08:00 Intake & Output 01/27/19 01/28/19 01/28/19 18:59 06:59 18:59 Intake Total 771.322 2513.861 385.648 Output Total 4760 1417 228 Balance -4454.630 -191.139 157.648 Weight 81.6 kg Intake: IV 303 1130 380 Albumin Human 5% 250 ml 250 250 In Empty Bag 1 bag @ 250 mls/hr IVPB Q1HR PRN Rx#: [id number] CO/CI 90 300 20 LR 150 580 110 Intake, IV Titration 2.370 95.861 5.648 Amount Clevidipine Butyrate 25 2.033 10.467 mg In Empty Bag 1 bag @ 1 MG/HR 2 mls/hr IV .Q24H [facility] Rx#:[id number] Dexmedetomidine/0.9% NaCl 43.309 (Pmx) 400 mcg In Empty Bag 1 bag @ Titrate IV . Q0M [facility] Rx#:[id number] Insulin Regular 100 unit 0.337 35.719 5.648 In Sodium Chloride 0.9% 100 ml @ Per Protocol IV .Q0M [facility] Rx#:[id number] Propofol 1,000 mg In 6.366 Empty Bag 1 bag @ Titrate IV .Q0M [facility] Rx#: [id number] Output: Chest Tube Drainage 360 440 68 Left Pleural 81 96 2 Mediastinal 109 245 60 Right Pleural 170 99 6 Drainage 80 10 Left Leg DANIELA 80 10 Urine 900 897 150 Estimated Blood Loss 3500 Other: Voiding Method Indwelling Catheter Indwelling Catheter Indwelling Catheter ABP, PAP, CO, CI - Last Documented Arterial Blood Pressure 127/57 Pulmonary Artery Pressure 22/12 Cardiac Output 4.6 Cardiac Index 2.3 - Constitutional General appearance: Present: cooperative, no acute distress - Respiratory Details: Lungs sounds diminished bilaterally. Respirations even, nonlabored. Currently on 4 L nasal cannula with oxygen saturation 98%. Only able to achieve 500 mL on her incentive spirometry. Mediastinal chest tube to continuous wall suction, 200 mL serosanguineous drainage overnight, 380 mL since surgery. Left pleural chest tube to continuous wall suction, 65 mL serosanguineous drainage overnight, 180 mL since surgery. Right pleural chest tube to continuous wall suction, 90 mL serosanguineous drainage overnight, 180 mL since surgery. No air leaks present. - Cardiovascular Details: S1, S2 present. Regular rate and rhythm, atrially paced at 80 bpm on telemetry, underlying rhythm normal sinus with heart rate of 70. Sternum stable. Palpable peripheral pulses bilaterally. No edema present. No calf pain or tenderness noted. Right internal jugular [place], right radial arterial line present. Last CO/CI 4.6/2.3 on no inotropes or pressors. Heart hugger in place with patient demonstrating appropriate use. Antiembolism stockings, SCDs present. - Gastrointestinal Gastrointestinal Comment(s): Abdomen soft, nontender, nondistended. Hypoactive bowel sounds present 4 quadrants. Tolerating clear liquids. Negative flatus. - Genitourinary Genitourinary Comment(s): Curtis present draining clear, yellow urine. Output 30-50 mL per hour overnight. - Integumentary Integumentary Comment(s): Skin is warm and dry with evidence of good perfusion. Anterior chest incision well approximated and covered with dry intact dressing. Left lower extremity EVH site well approximated, DANIELA drain present with serosanguineous drainage. - Neurologic Neurologic: Present: CNII-XII intact - Musculoskeletal Musculoskeletal: Present: strength equal bilaterally - Psychiatric Psychiatric: Present: A&O x's 3, appropriate affect, intact judgment & insight - Allied health notes Allied health notes reviewed: nursing - Labs CBC & Chem 7: 01/28/19 04:10 01/28/19 04:10 Labs: Abnormal Lab Results - Last 24 Hours (Table) 01/19/19 01/27/19 01/27/19 Range/Units 16:57 08:41 10:50 WBC (3.8-10.6) k/uL RBC (3.80-5.40) m/uL Hgb (11.4-16.0) gm/dL Hct (34.0-46.0) % Plt Count (150-450) k/uL Neutrophils # (1.3-7.7) k/uL Lymphocytes # (1.0-4.8) k/uL PT (9.0-12.0) sec INR (<1.2) ABG pH (7.35-7.45) ABG pCO2 (35-45) mmHg ABG pO2 280 H 210 H (83-108) mmHg ABG HCO3 26 H 26 H (21-25) mmol/L ABG Total CO2 28 H 27 H (19-24) mmol/L ABG O2 Saturation 100.0 H 100.0 H (94-97) % ABG Hematocrit (34.0-46.0) % ABG Sodium (135-146) mmol/L ABG Potassium (3.4-4.5) mmol/L ABG Ionized Calcium (4.5-5.3) mg/dL ABG Glucose 146 H 156 H (75-99) mg/dL ABG Lactic Acid 1.9 H (0.5-1.6) mmol/L Hemoglobin (11.4-16.0) gm/dL Chloride (98-107) mmol/L Glucose (74-99) mg/dL POC Glucose (mg/dL) (75-99) mg/dL Calcium (8.4-10.2) mg/dL Ionized Calcium [place] (4.5-5.3) mg/dL Magnesium (1.6-2.3) mg/dL AST (14-36) U/L Alkaline Phosphatase (38-126) U/L Total Protein (6.3-8.2) g/dL Albumin (3.5-5.0) g/dL Arterial Blood Potassium (3.4-4.5) mmol/L Arterial Blood Glucose 146 H 156 H (75-99) mg/dL Crossmatch See Detail 01/27/19 01/27/19 01/27/19 Range/Units 11:48 12:41 13:08 WBC (3.8-10.6) k/uL RBC (3.80-5.40) m/uL Hgb (11.4-16.0) gm/dL Hct (34.0-46.0) % Plt Count (150-450) k/uL Neutrophils # (1.3-7.7) k/uL Lymphocytes # (1.0-4.8) k/uL PT (9.0-12.0) sec INR (<1.2) ABG pH 7.34 L (7.35-7.45) ABG pCO2 47 H (35-45) mmHg ABG pO2 297 H 352 H 314 H (83-108) mmHg ABG HCO3 26 H 26 H (21-25) mmol/L ABG Total CO2 27 H 27 H 27 H (19-24) mmol/L ABG O2 Saturation 100.0 H 100.0 H 100.0 H (94-97) % ABG Hematocrit 27 L 25 L 25 L (34.0-46.0) % ABG Sodium 134 L (135-146) mmol/L ABG Potassium 4.9 H (3.4-4.5) mmol/L ABG Ionized Calcium 4.1 L 4.2 L 4.3 L (4.5-5.3) mg/dL ABG Glucose 251 H 248 H 202 H (75-99) mg/dL ABG Lactic Acid 1.7 H 1.9 H (0.5-1.6) mmol/L Hemoglobin 8.6 L 8.0 L 8.2 L (11.4-16.0) gm/dL Chloride (98-107) mmol/L Glucose (74-99) mg/dL POC Glucose (mg/dL) (75-99) mg/dL Calcium (8.4-10.2) mg/dL Ionized Calcium [place] (4.5-5.3) mg/dL Magnesium (1.6-2.3) mg/dL AST (14-36) U/L Alkaline Phosphatase (38-126) U/L Total Protein (6.3-8.2) g/dL Albumin (3.5-5.0) g/dL Arterial Blood Potassium 4.9 H (3.4-4.5) mmol/L Arterial Blood Glucose 251 H 248 H 202 H (75-99) mg/dL Crossmatch 01/27/19 01/27/19 01/27/19 Range/Units 14:46 16:15 16:15 WBC 11.5 H (3.8-10.6) k/uL RBC 3.51 L (3.80-5.40) m/uL Hgb 10.4 L (11.4-16.0) gm/dL Hct 30.2 L (34.0-46.0) % Plt Count 118 L (150-450) k/uL Neutrophils # 9.6 H (1.3-7.7) k/uL Lymphocytes # (1.0-4.8) k/uL PT (9.0-12.0) sec INR (<1.2) ABG pH (7.35-7.45) ABG pCO2 46 H (35-45) mmHg ABG pO2 (83-108) mmHg ABG HCO3 (21-25) mmol/L ABG Total CO2 27 H (19-24) mmol/L ABG O2 Saturation 97.9 H (94-97) % ABG Hematocrit 30 L (34.0-46.0) % ABG Sodium (135-146) mmol/L ABG Potassium 3.1 L (3.4-4.5) mmol/L ABG Ionized Calcium 4.1 L (4.5-5.3) mg/dL ABG Glucose 121 H (75-99) mg/dL ABG Lactic Acid 1.7 H (0.5-1.6) mmol/L Hemoglobin 9.7 L (11.4-16.0) gm/dL Chloride 113 H (98-107) mmol/L Glucose 63 L (74-99) mg/dL POC Glucose (mg/dL) (75-99) mg/dL Calcium (8.4-10.2) mg/dL Ionized Calcium Emory 5.6 H (4.5-5.3) mg/dL Magnesium (1.6-2.3) mg/dL AST 76 H (14-36) U/L Alkaline Phosphatase 21 L (38-126) U/L Total Protein 4.0 L (6.3-8.2) g/dL Albumin 2.3 L (3.5-5.0) g/dL Arterial Blood Potassium 3.1 L (3.4-4.5) mmol/L Arterial Blood Glucose 121 H (75-99) mg/dL Crossmatch 01/27/19 01/27/19 01/27/19 Range/Units 16:15 16:16 16:31 WBC (3.8-10.6) k/uL RBC (3.80-5.40) m/uL Hgb (11.4-16.0) gm/dL Hct (34.0-46.0) % Plt Count (150-450) k/uL Neutrophils # (1.3-7.7) k/uL Lymphocytes # (1.0-4.8) k/uL PT 13.6 H (9.0-12.0) sec INR 1.3 H (<1.2) ABG pH 7.29 L (7.35-7.45) ABG pCO2 51 H (35-45) mmHg ABG pO2 360 H (83-108) mmHg ABG HCO3 (21-25) mmol/L ABG Total CO2 26 H (19-24) mmol/L ABG O2 Saturation 99.8 H (94-97) % ABG Hematocrit (34.0-46.0) % ABG Sodium (135-146) mmol/L ABG Potassium (3.4-4.5) mmol/L ABG Ionized Calcium (4.5-5.3) mg/dL ABG Glucose (75-99) mg/dL ABG Lactic Acid (0.5-1.6) mmol/L Hemoglobin (11.4-16.0) gm/dL Chloride (98-107) mmol/L Glucose (74-99) mg/dL POC Glucose (mg/dL) 69 L (75-99) mg/dL Calcium (8.4-10.2) mg/dL Ionized Calcium [place] (4.5-5.3) mg/dL Magnesium (1.6-2.3) mg/dL AST (14-36) U/L Alkaline Phosphatase (38-126) U/L Total Protein (6.3-8.2) g/dL Albumin (3.5-5.0) g/dL Arterial Blood Potassium (3.4-4.5) mmol/L Arterial Blood Glucose (75-99) mg/dL Crossmatch 01/27/19 01/27/19 01/27/19 Range/Units 16:41 16:59 18:15 WBC (3.8-10.6) k/uL RBC (3.80-5.40) m/uL Hgb (11.4-16.0) gm/dL Hct (34.0-46.0) % Plt Count (150-450) k/uL Neutrophils # (1.3-7.7) k/uL Lymphocytes # (1.0-4.8) k/uL PT (9.0-12.0) sec INR (<1.2) ABG pH (7.35-7.45) ABG pCO2 (35-45) mmHg ABG pO2 (83-108) mmHg ABG HCO3 (21-25) mmol/L ABG Total CO2 (19-24) mmol/L ABG O2 Saturation (94-97) % ABG Hematocrit (34.0-46.0) % ABG Sodium (135-146) mmol/L ABG Potassium (3.4-4.5) mmol/L ABG Ionized Calcium (4.5-5.3) mg/dL ABG Glucose (75-99) mg/dL ABG Lactic Acid (0.5-1.6) mmol/L Hemoglobin (11.4-16.0) gm/dL Chloride (98-107) mmol/L Glucose (74-99) mg/dL POC Glucose (mg/dL) 208 H 169 H 158 H (75-99) mg/dL Calcium (8.4-10.2) mg/dL Ionized Calcium [place] (4.5-5.3) mg/dL Magnesium (1.6-2.3) mg/dL AST (14-36) U/L Alkaline Phosphatase (38-126) U/L Total Protein (6.3-8.2) g/dL Albumin (3.5-5.0) g/dL Arterial Blood Potassium (3.4-4.5) mmol/L Arterial Blood Glucose (75-99) mg/dL Crossmatch 01/27/19 01/27/19 01/27/19 Range/Units 19:00 19:03 20:05 WBC 12.0 H (3.8-10.6) k/uL RBC 3.76 L (3.80-5.40) m/uL Hgb 11.1 L (11.4-16.0) gm/dL Hct 32.4 L (34.0-46.0) % Plt Count 119 L (150-450) k/uL Neutrophils # 10.3 H (1.3-7.7) k/uL Lymphocytes # (1.0-4.8) k/uL PT (9.0-12.0) sec INR (<1.2) ABG pH (7.35-7.45) ABG pCO2 (35-45) mmHg ABG pO2 (83-108) mmHg ABG HCO3 (21-25) mmol/L ABG Total CO2 (19-24) mmol/L ABG O2 Saturation (94-97) % ABG Hematocrit (34.0-46.0) % ABG Sodium (135-146) mmol/L ABG Potassium (3.4-4.5) mmol/L ABG Ionized Calcium (4.5-5.3) mg/dL ABG Glucose (75-99) mg/dL ABG Lactic Acid (0.5-1.6) mmol/L Hemoglobin (11.4-16.0) gm/dL Chloride (98-107) mmol/L Glucose (74-99) mg/dL POC Glucose (mg/dL) 176 H 185 H (75-99) mg/dL Calcium (8.4-10.2) mg/dL Ionized Calcium Emory (4.5-5.3) mg/dL Magnesium (1.6-2.3) mg/dL AST (14-36) U/L Alkaline Phosphatase (38-126) U/L Total Protein (6.3-8.2) g/dL Albumin (3.5-5.0) g/dL Arterial Blood Potassium (3.4-4.5) mmol/L Arterial Blood Glucose (75-99) mg/dL Crossmatch 01/27/19 01/27/19 01/27/19 Range/Units 21:06 22:10 22:10 WBC (3.8-10.6) k/uL RBC 3.58 L (3.80-5.40) m/uL Hgb 10.2 L (11.4-16.0) gm/dL Hct 30.7 L (34.0-46.0) % Plt Count 88 L (150-450) k/uL Neutrophils # (1.3-7.7) k/uL Lymphocytes # 0.5 L (1.0-4.8) k/uL PT (9.0-12.0) sec INR (<1.2) ABG pH (7.35-7.45) ABG pCO2 (35-45) mmHg ABG pO2 (83-108) mmHg ABG HCO3 (21-25) mmol/L ABG Total CO2 (19-24) mmol/L ABG O2 Saturation (94-97) % ABG Hematocrit (34.0-46.0) % ABG Sodium (135-146) mmol/L ABG Potassium (3.4-4.5) mmol/L ABG Ionized Calcium (4.5-5.3) mg/dL ABG Glucose (75-99) mg/dL ABG Lactic Acid (0.5-1.6) mmol/L Hemoglobin (11.4-16.0) gm/dL Chloride (98-107) mmol/L Glucose (74-99) mg/dL POC Glucose (mg/dL) 184 H 161 H (75-99) mg/dL Calcium (8.4-10.2) mg/dL Ionized Calcium [place] (4.5-5.3) mg/dL Magnesium (1.6-2.3) mg/dL AST (14-36) U/L Alkaline Phosphatase (38-126) U/L Total Protein (6.3-8.2) g/dL Albumin (3.5-5.0) g/dL Arterial Blood Potassium (3.4-4.5) mmol/L Arterial Blood Glucose (75-99) mg/dL Crossmatch 01/27/19 01/28/19 01/28/19 Range/Units 23:22 00:36 01:18 WBC (3.8-10.6) k/uL RBC (3.80-5.40) m/uL Hgb (11.4-16.0) gm/dL Hct (34.0-46.0) % Plt Count (150-450) k/uL Neutrophils # (1.3-7.7) k/uL Lymphocytes # (1.0-4.8) k/uL PT (9.0-12.0) sec INR (<1.2) ABG pH (7.35-7.45) ABG pCO2 (35-45) mmHg ABG pO2 74 L (83-108) mmHg ABG HCO3 (21-25) mmol/L ABG Total CO2 (19-24) mmol/L ABG O2 Saturation (94-97) % ABG Hematocrit (34.0-46.0) % ABG Sodium (135-146) mmol/L ABG Potassium (3.4-4.5) mmol/L ABG Ionized Calcium (4.5-5.3) mg/dL ABG Glucose (75-99) mg/dL ABG Lactic Acid (0.5-1.6) mmol/L Hemoglobin (11.4-16.0) gm/dL Chloride (98-107) mmol/L Glucose (74-99) mg/dL POC Glucose (mg/dL) 133 H 135 H (75-99) mg/dL Calcium (8.4-10.2) mg/dL Ionized Calcium [place] (4.5-5.3) mg/dL Magnesium (1.6-2.3) mg/dL AST (14-36) U/L Alkaline Phosphatase (38-126) U/L Total Protein (6.3-8.2) g/dL Albumin (3.5-5.0) g/dL Arterial Blood Potassium (3.4-4.5) mmol/L Arterial Blood Glucose (75-99) mg/dL Crossmatch 01/28/19 01/28/19 01/28/19 Range/Units 01:21 02:14 03:01 WBC (3.8-10.6) k/uL RBC (3.80-5.40) m/uL Hgb (11.4-16.0) gm/dL Hct (34.0-46.0) % Plt Count (150-450) k/uL Neutrophils # (1.3-7.7) k/uL Lymphocytes # (1.0-4.8) k/uL PT (9.0-12.0) sec INR (<1.2) ABG pH (7.35-7.45) ABG pCO2 (35-45) mmHg ABG pO2 (83-108) mmHg ABG HCO3 (21-25) mmol/L ABG Total CO2 (19-24) mmol/L ABG O2 Saturation (94-97) % ABG Hematocrit (34.0-46.0) % ABG Sodium (135-146) mmol/L ABG Potassium (3.4-4.5) mmol/L ABG Ionized Calcium (4.5-5.3) mg/dL ABG Glucose (75-99) mg/dL ABG Lactic Acid (0.5-1.6) mmol/L Hemoglobin (11.4-16.0) gm/dL Chloride (98-107) mmol/L Glucose (74-99) mg/dL POC Glucose (mg/dL) 195 H 179 H 158 H (75-99) mg/dL Calcium (8.4-10.2) mg/dL Ionized Calcium Em[place] (4.5-5.3) mg/dL Magnesium (1.6-2.3) mg/dL AST (14-36) U/L Alkaline Phosphatase (38-126) U/L Total Protein (6.3-8.2) g/dL Albumin (3.5-5.0) g/dL Arterial Blood Potassium (3.4-4.5) mmol/L Arterial Blood Glucose (75-99) mg/dL Crossmatch 01/28/19 01/28/19 01/28/19 Range/Units 04:09 04:10 04:10 WBC (3.8-10.6) k/uL RBC 3.27 L (3.80-5.40) m/uL Hgb 9.4 L (11.4-16.0) gm/dL Hct 28.0 L (34.0-46.0) % Plt Count 79 L (150-450) k/uL Neutrophils # (1.3-7.7) k/uL Lymphocytes # 0.6 L (1.0-4.8) k/uL PT (9.0-12.0) sec INR (<1.2) ABG pH (7.35-7.45) ABG pCO2 (35-45) mmHg ABG pO2 (83-108) mmHg ABG HCO3 (21-25) mmol/L ABG Total CO2 (19-24) mmol/L ABG O2 Saturation (94-97) % ABG Hematocrit (34.0-46.0) % ABG Sodium (135-146) mmol/L ABG Potassium (3.4-4.5) mmol/L ABG Ionized Calcium (4.5-5.3) mg/dL ABG Glucose (75-99) mg/dL ABG Lactic Acid (0.5-1.6) mmol/L Hemoglobin (11.4-16.0) gm/dL Chloride 110 H (98-107) mmol/L Glucose 125 H (74-99) mg/dL POC Glucose (mg/dL) 141 H (75-99) mg/dL Calcium 7.6 L (8.4-10.2) mg/dL Ionized Calcium Emory (4.5-5.3) mg/dL Magnesium 2.5 H (1.6-2.3) mg/dL AST 72 H (14-36) U/L Alkaline Phosphatase 25 L (38-126) U/L Total Protein 4.4 L (6.3-8.2) g/dL Albumin 2.7 L (3.5-5.0) g/dL Arterial Blood Potassium (3.4-4.5) mmol/L Arterial Blood Glucose (75-99) mg/dL Crossmatch 01/28/19 01/28/19 01/28/19 Range/Units 05:01 06:16 07:16 WBC (3.8-10.6) k/uL RBC (3.80-5.40) m/uL Hgb (11.4-16.0) gm/dL Hct (34.0-46.0) % Plt Count (150-450) k/uL Neutrophils # (1.3-7.7) k/uL Lymphocytes # (1.0-4.8) k/uL PT (9.0-12.0) sec INR (<1.2) ABG pH (7.35-7.45) ABG pCO2 (35-45) mmHg ABG pO2 (83-108) mmHg ABG HCO3 (21-25) mmol/L ABG Total CO2 (19-24) mmol/L ABG O2 Saturation (94-97) % ABG Hematocrit (34.0-46.0) % ABG Sodium (135-146) mmol/L ABG Potassium (3.4-4.5) mmol/L ABG Ionized Calcium (4.5-5.3) mg/dL ABG Glucose (75-99) mg/dL ABG Lactic Acid (0.5-1.6) mmol/L Hemoglobin (11.4-16.0) gm/dL Chloride (98-107) mmol/L Glucose (74-99) mg/dL POC Glucose (mg/dL) 140 H 145 H 136 H (75-99) mg/dL Calcium (8.4-10.2) mg/dL Ionized Calcium Emory (4.5-5.3) mg/dL Magnesium (1.6-2.3) mg/dL AST (14-36) U/L Alkaline Phosphatase (38-126) U/L Total Protein (6.3-8.2) g/dL Albumin (3.5-5.0) g/dL Arterial Blood Potassium (3.4-4.5) mmol/L Arterial Blood Glucose (75-99) mg/dL Crossmatch 01/28/19 01/28/19 Range/Units 08:18 08:53 WBC (3.8-10.6) k/uL RBC (3.80-5.40) m/uL Hgb (11.4-16.0) gm/dL Hct (34.0-46.0) % Plt Count (150-450) k/uL Neutrophils # (1.3-7.7) k/uL Lymphocytes # (1.0-4.8) k/uL PT (9.0-12.0) sec INR (<1.2) ABG pH (7.35-7.45) ABG pCO2 (35-45) mmHg ABG pO2 (83-108) mmHg ABG HCO3 (21-25) mmol/L ABG Total CO2 (19-24) mmol/L ABG O2 Saturation (94-97) % ABG Hematocrit (34.0-46.0) % ABG Sodium (135-146) mmol/L ABG Potassium (3.4-4.5) mmol/L ABG Ionized Calcium (4.5-5.3) mg/dL ABG Glucose (75-99) mg/dL ABG Lactic Acid (0.5-1.6) mmol/L Hemoglobin (11.4-16.0) gm/dL Chloride (98-107) mmol/L Glucose (74-99) mg/dL POC Glucose (mg/dL) 122 H 110 H (75-99) mg/dL Calcium (8.4-10.2) mg/dL Ionized Calcium Emory (4.5-5.3) mg/dL Magnesium (1.6-2.3) mg/dL AST (14-36) U/L Alkaline Phosphatase (38-126) U/L Total Protein (6.3-8.2) g/dL Albumin (3.5-5.0) g/dL Arterial Blood Potassium (3.4-4.5) mmol/L Arterial Blood Glucose (75-99) mg/dL Crossmatch - Imaging and Cardiology Chest x-ray: report reviewed, image reviewed Assessment and Plan Assessment: 1. Coronary artery disease with previous stenting to the RCA in April 2018, status post three-vessel CABG 2. Preserved left ventricular function 3. Obesity 4. Hypertension 5. Hyperlipidemia 6. Diabetes with preoperative hemoglobin A1c 7.6% 7. History of Graves' disease 8. Previous tobacco dependence 9. Mild COPD with preoperative FEV1 75% of predicted 10. Preoperative atrial fibrillation, present the morning of surgery, status post bilateral pulmonary vein isolation and exclusion of the left atrial appendage 11. Family history of premature coronary artery disease Plan: 1. Continue aspirin, statin, Plavix, beta reagan therapy. Will increase beta reagan therapy as tolerated. 2. Wean O2 as tolerated. Encourage incentive spirometry is 10 times every hour while awake 3. Increase activity, ambulate as tolerated. PT/OT/cardiac rehab following. 4. Bronchodilators per pulmonology. 5. Will monitor daily labs and x-rays. Electrolyte replacement per protocol. No transfusion. 6. Pain control with current medication regimen. 7. Discontinue [place]. Connect Cordis to continuous CVP monitoring. 8. Will discontinue mediastinal chest tube. Continue right and left pleural chest tubes for another 24 hours. 9. Insulin management per her care services. 10. GI/DVT prophylaxis. 11. Increase diet as tolerated. 12. More recommendations to follow based on patient's progress. Time with Patient: Greater than 30
[2019-01-28] MEDS ORDERED: ACETAMINOPHEN TAB 500 MG TAB PO PRN (10:44)
[2019-01-28 11:19] LABS: Glucose,Whole Blood 137 mg/dL (75-99)
[2019-01-28 11:35] VITALS: BMI 29.0
--- NOTE | 2019-01-28 11:47 | P.CNPUL ---
History of Present Illness Consult date: 01/28/19 Reason for consult: other (Status post CABG, on mechanical ventilation.) Chief complaint: Status post CABG, history of symptomatic coronary artery disease. History of present illness: This is a 78-year-old female underwent elective triple coronary artery bypass surgery on 01/27/2019, she was on mechanical ventilation postoperatively, and I was asked to see her on consultation. Reviewed her chest x-ray postoperatively, reviewed her ABG, patient was on mechanical ventilation until after midnight, she was extubated, tolerated the extubation well. Evaluated today in the ICU, patient is on nasal cannula, and in no distress. Apparently the patient had a recent cardiac catheterization showed significant in-stent stenosis as well as LAD disease involving the takeoff of diagonal artery. Her past medical history is also significant for diabetes hyperlipidemia hypertension and Graves' disease, and she is an ex-smoker. During my evaluation, the patient was noted to be sitting in a bedside chair, doing poorly with incentive spirometry, but in no form of respiratory distress. Review of Systems CONSTITUTIONAL: No fever no chills no weight loss.. HEENT: No recent visual problems or hearing problems. Denied any sore throat. CARDIOVASCULAR: Please refer to HPI, recent cardiac catheterization was abnormal.. PULMONARY: No shortness of breath, no cough, no hemoptysis. GASTROINTESTINAL: No nausea no vomiting no abdominal pain no melena no hematemesis. NEUROLOGICAL: No headaches, no weakness, no numbness. HEMATOLOGICAL: Denies any bleeding or petechiae. GENITOURINARY: Denies any dysuria frequency urgency or hematuria.. MUSCULOSKELETAL/RHEUMATOLOGICAL: Denies any arthralgia or myalgia. ENDOCRINE: no heat or cold intolerance. Patient had previous history of Graves' disease. Past Medical History Past Medical History: Diabetes Mellitus, Hyperlipidemia, Hypertension, Osteoarthritis (OA), Thyroid Disorder Additional Past Medical History / Comment(s): KIDNEY STONES , DIET CONTROLLED DIABETIC, PAST HISTORY OF GRAVES DISEASE History of Any Multi-Drug Resistant Organisms: None Reported Past Surgical History: Appendectomy, Cholecystectomy, Heart Catheterization, Heart Catheterization With Stent Additional Past Surgical History / Comment(s): RIGHT KNEE ARTHROSCOPIC Past Anesthesia/Blood Transfusion Reactions: Family History of Problems w/ Anesthesia, Motion Sickness Additional Past Anesthesia/Blood Transfusion Reaction / Comment(s): brother had problems w/anesthesia-not sure what they were Date of Last Stent Placement:: MAY 07 2018 Smoking Status: Former smoker - Past Family History Father Family Medical History: Cancer Mother Family Medical History: Coronary Artery Disease (CAD), Myocardial Infarction ([place]) Brother(s) Family Medical History: AICD/Pacemaker, Coronary Artery Disease (CAD) Medications and Allergies Home Medications Medication Instructions Recorded Confirmed Type Aspirin [Adult Low Dose Aspirin EC] 81 mg PO DAILY 05/05/18 01/27/19 History Calcium Carbonate [Calcium] 1,200 mg PO BID 05/05/18 01/27/19 History Carvedilol [Coreg] 6.25 mg PO BID 05/05/18 01/27/19 History Cholecalciferol (Vitamin D3) 2,000 unit PO DAILY 05/05/18 01/27/19 History [Vitamin D3] Glucosam/Demian-Msm1/C/Errol/Bosw 1 tab PO DAILY 05/05/18 01/27/19 History [Glucosamine-Chondroitin Tablet] Lisinopril-Hctz 20-25 mg 1 tab PO QAM 05/05/18 01/27/19 History [Zestoretic 20-25] Loperamide [Imodium] 4 mg PO BID 05/05/18 01/27/19 History Multivitamins, Thera [Multivitamin 1 tab PO DAILY 05/05/18 01/27/19 History (formulary)] Potassium Chloride ER [K-Dur 10] 10 meq PO QAM 05/05/18 01/27/19 History amLODIPine [Norvasc] 2.5 mg PO HS 05/05/18 01/27/19 History Atorvastatin [Lipitor] 80 mg PO HS #90 tab 05/08/18 01/27/19 Rx Nitroglycerin Sl Tabs [Nitrostat] 0.4 mg SUBLINGUAL Q5M PRN #25 tab 05/08/18 01/27/19 Rx Clopidogrel [Plavix] 75 mg PO DAILY 01/21/19 01/27/19 History Isosorbide Mononitrate [Isosorbide 30 mg PO DAILY 01/21/19 01/27/19 History Mononitrate ER] Allergies Allergy/AdvReac Type Severity Reaction Status Date / Time adhesive Allergy BLISTERS Verified 01/27/19 08:56 Physical Exam Vitals: Vital Signs Temp Pulse Resp BP Pulse Ox 01/28/19 10:49 80 01/28/19 10:00 99.5 F 80 8 L 120/65 97 01/28/19 09:00 80 27 H 113/59 01/28/19 08:00 99.5 F 80 0 L 98/48 96 01/28/19 07:00 80 21 95/53 97 01/28/19 06:54 80 01/28/19 06:48 80 01/28/19 06:00 80 25 H 99/62 98 01/28/19 05:00 80 12 94 L 01/28/19 04:00 80 19 95/55 94 L 01/28/19 03:00 80 18 95/59 93 L 01/28/19 02:00 80 21 118/76 95 01/28/19 01:00 80 35 H 108/61 95 01/28/19 00:00 80 19 107/62 95 01/27/19 23:38 80 22 107/62 96 01/27/19 23:21 80 01/27/19 23:09 80 01/27/19 23:00 80 20 102/68 96 01/27/19 22:00 80 20 102/57 94 L 01/27/19 21:00 80 20 104/59 96 01/27/19 20:06 80 01/27/19 20:00 80 24 114/66 97 01/27/19 19:00 80 11 L 111/61 95 01/27/19 18:00 80 21 116/42 97 01/27/19 17:38 80 01/27/19 17:30 80 01/27/19 17:00 80 18 119/65 100 Intake and Output 01/27/19 01/28/19 01/28/19 22:59 06:59 14:59 Intake Total 590.688 877.543 387.121 Output Total 5382 795 228 Balance -4791.312 82.543 159.121 Intake: IV 560 810 380 Albumin Human 5% 250 ml 250 250 In Empty Bag 1 bag @ 250 mls/hr IVPB Q1HR PRN Rx#: [id number] CO/CI 210 180 20 LR 350 380 110 Intake, IV Titration 30.688 67.543 7.121 Amount Clevidipine Butyrate 25 12.500 mg In Empty Bag 1 bag @ 1 MG/HR 2 mls/hr IV .Q24H [facility] Rx#:[id number] Dexmedetomidine/0.9% NaCl 43.309 (Pmx) 400 mcg In Empty Bag 1 bag @ Titrate IV . Q0M [facility] Rx#:[id number] Insulin Regular 100 unit 11.822 24.234 7.121 In Sodium Chloride 0.9% 100 ml @ Per Protocol IV .Q0M [facility] Rx#:[id number] Propofol 1,000 mg In 6.366 Empty Bag 1 bag @ Titrate IV .Q0M [facility] Rx#: [id number] Output: Chest Tube Drainage 452 348 68 Left Pleural 113 64 2 Mediastinal 149 205 60 Right Pleural 190 79 6 Drainage 80 10 Left Leg DANIELA 80 10 Urine 1430 367 150 Estimated Blood Loss 3500 Other: Voiding Method Indwelling Catheter Indwelling Catheter Indwelling Catheter Weight 81.6 kg 81.6 kg ABP, PAP, CO, CI - Last 8 Hours Arterial Blood Pressure 102/48 Arterial Blood Pressure 127/57 Arterial Blood Pressure 105/48 Arterial Blood Pressure 96/44 Arterial Blood Pressure 113/54 Arterial Blood Pressure 122/58 Arterial Blood Pressure 110/50 Pulmonary Artery Pressure 22/12 Pulmonary Artery Pressure 19/9 Pulmonary Artery Pressure 23/12 Pulmonary Artery Pressure 26/16 Pulmonary Artery Pressure 19/10 Cardiac Output 4.6 Cardiac Output 4.4 Cardiac Index 2.3 Cardiac Index 2.1 Physical Exam: Revealed a 78-year-old female in no distress. Patient is presently on 4 L nasal cannula, O2 saturations 98%, asymptomatic except for incisional pain. Head: Atraumatic, normocephalic. HEENT:[Neck is supple.] [No neck masses.] [No thyromegaly.] [No JVD.] Right IJ [place] noted. Chest: [Clear throughout, no crackles, no rhonchi, no wheezes.] Cardiac Exam: [Normal S1 and S2, no S3 gallop, no murmur.] Heart rate is 80/m Last cardiac output was 4.6. Abdomen: [Soft, nontender, no megaly, no rebound, no guarding, normal bowel sounds.] Extremities: [No clubbing, no edema, no cyanosis.] Right radial arterial line is noted. Neurological Exam: [No focal neurologic deficit.] Alert and oriented 3. Psychiatric: Normal mood affect and normal mental status examination. Lymphatics: No lymphadenopathy. Results - Laboratory Findings CBC and BMP: 01/28/19 04:10 01/28/19 04:10 ABG ABG pH 7.39 (7.35-7.45) 01/28/19 01:18 ABG pCO2 38 mmHg (35-45) 01/28/19 01:18 ABG pO2 74 mmHg (83-108) L 01/28/19 01:18 ABG O2 Saturation 95.9 % (94-97) 01/28/19 01:18 PT/INR, D-dimer PT 13.6 sec (9.0-12.0) H 01/27/19 16:15 INR 1.3 (<1.2) H 01/27/19 16:15 Abnormal lab findings: Abnormal Labs 01/19/19 01/27/19 01/27/19 16:57 06:31 08:41 WBC RBC Hgb Hct Plt Count Neutrophils # Lymphocytes # PT INR ABG pH ABG pCO2 ABG pO2 280 H ABG HCO3 26 H ABG Total CO2 28 H ABG O2 Saturation 100.0 H ABG Hematocrit ABG Sodium ABG Potassium ABG Ionized Calcium ABG Glucose 146 H ABG Lactic Acid 1.9 H Hemoglobin Chloride Glucose POC Glucose (mg/dL) 188 H Calcium Ionized Calcium [place] Magnesium AST Alkaline Phosphatase Total Protein Albumin Arterial Blood Potassium Arterial Blood Glucose 146 H Crossmatch See Detail 01/27/19 01/27/19 01/27/19 10:50 11:48 12:41 WBC RBC Hgb Hct Plt Count Neutrophils # Lymphocytes # PT INR ABG pH ABG pCO2 ABG pO2 210 H 297 H 352 H ABG HCO3 26 H 26 H 26 H ABG Total CO2 27 H 27 H 27 H ABG O2 Saturation 100.0 H 100.0 H 100.0 H ABG Hematocrit 27 L 25 L ABG Sodium 134 L ABG Potassium 4.9 H ABG Ionized Calcium 4.1 L 4.2 L ABG Glucose 156 H 251 H 248 H ABG Lactic Acid 1.7 H Hemoglobin 8.6 L 8.0 L Chloride Glucose POC Glucose (mg/dL) Calcium Ionized Calcium [place] Magnesium AST Alkaline Phosphatase Total Protein Albumin Arterial Blood Potassium 4.9 H Arterial Blood Glucose 156 H 251 H 248 H Crossmatch 01/27/19 01/27/19 01/27/19 13:08 14:46 16:15 WBC 11.5 H RBC 3.51 L Hgb 10.4 L Hct 30.2 L Plt Count 118 L Neutrophils # 9.6 H Lymphocytes # PT INR ABG pH 7.34 L ABG pCO2 47 H 46 H ABG pO2 314 H ABG HCO3 ABG Total CO2 27 H 27 H ABG O2 Saturation 100.0 H 97.9 H ABG Hematocrit 25 L 30 L ABG Sodium ABG Potassium 3.1 L ABG Ionized Calcium 4.3 L 4.1 L ABG Glucose 202 H 121 H ABG Lactic Acid 1.9 H 1.7 H Hemoglobin 8.2 L 9.7 L Chloride Glucose POC Glucose (mg/dL) Calcium Ionized Calcium [place] Magnesium AST Alkaline Phosphatase Total Protein Albumin Arterial Blood Potassium 3.1 L Arterial Blood Glucose 202 H 121 H Crossmatch 01/27/19 01/27/19 01/27/19 16:15 16:15 16:16 WBC RBC Hgb Hct Plt Count Neutrophils # Lymphocytes # PT 13.6 H INR 1.3 H ABG pH ABG pCO2 ABG pO2 ABG HCO3 ABG Total CO2 ABG O2 Saturation ABG Hematocrit ABG Sodium ABG Potassium ABG Ionized Calcium ABG Glucose ABG Lactic Acid Hemoglobin Chloride 113 H Glucose 63 L POC Glucose (mg/dL) 69 L Calcium Ionized Calcium [place] 5.6 H Magnesium AST 76 H Alkaline Phosphatase 21 L Total Protein 4.0 L Albumin 2.3 L Arterial Blood Potassium Arterial Blood Glucose Crossmatch 01/27/19 01/27/19 01/27/19 16:31 16:41 16:59 WBC RBC Hgb Hct Plt Count Neutrophils # Lymphocytes # PT INR ABG pH 7.29 L ABG pCO2 51 H ABG pO2 360 H ABG HCO3 ABG Total CO2 26 H ABG O2 Saturation 99.8 H ABG Hematocrit ABG Sodium ABG Potassium ABG Ionized Calcium ABG Glucose ABG Lactic Acid Hemoglobin Chloride Glucose POC Glucose (mg/dL) 208 H 169 H Calcium Ionized Calcium [place] Magnesium AST Alkaline Phosphatase Total Protein Albumin Arterial Blood Potassium Arterial Blood Glucose Crossmatch 01/27/19 01/27/19 01/27/19 18:15 19:00 19:03 WBC 12.0 H RBC 3.76 L Hgb 11.1 L Hct 32.4 L Plt Count 119 L Neutrophils # 10.3 H Lymphocytes # PT INR ABG pH ABG pCO2 ABG pO2 ABG HCO3 ABG Total CO2 ABG O2 Saturation ABG Hematocrit ABG Sodium ABG Potassium ABG Ionized Calcium ABG Glucose ABG Lactic Acid Hemoglobin Chloride Glucose POC Glucose (mg/dL) 158 H 176 H Calcium Ionized Calcium [place] Magnesium AST Alkaline Phosphatase Total Protein Albumin Arterial Blood Potassium Arterial Blood Glucose Crossmatch 01/27/19 01/27/19 01/27/19 20:05 21:06 22:10 WBC RBC 3.58 L Hgb 10.2 L Hct 30.7 L Plt Count 88 L Neutrophils # Lymphocytes # 0.5 L PT INR ABG pH ABG pCO2 ABG pO2 ABG HCO3 ABG Total CO2 ABG O2 Saturation ABG Hematocrit ABG Sodium ABG Potassium ABG Ionized Calcium ABG Glucose ABG Lactic Acid Hemoglobin Chloride Glucose POC Glucose (mg/dL) 185 H 184 H Calcium Ionized Calcium [place] Magnesium AST Alkaline Phosphatase Total Protein Albumin Arterial Blood Potassium Arterial Blood Glucose Crossmatch 01/27/19 01/27/19 01/28/19 22:10 23:22 00:36 WBC RBC Hgb Hct Plt Count Neutrophils # Lymphocytes # PT INR ABG pH ABG pCO2 ABG pO2 ABG HCO3 ABG Total CO2 ABG O2 Saturation ABG Hematocrit ABG Sodium ABG Potassium ABG Ionized Calcium ABG Glucose ABG Lactic Acid Hemoglobin Chloride Glucose POC Glucose (mg/dL) 161 H 133 H 135 H Calcium Ionized Calcium Em[place] Magnesium AST Alkaline Phosphatase Total Protein Albumin Arterial Blood Potassium Arterial Blood Glucose Crossmatch 01/28/19 01/28/19 01/28/19 01:18 01:21 02:14 WBC RBC Hgb Hct Plt Count Neutrophils # Lymphocytes # PT INR ABG pH ABG pCO2 ABG pO2 74 L ABG HCO3 ABG Total CO2 ABG O2 Saturation ABG Hematocrit ABG Sodium ABG Potassium ABG Ionized Calcium ABG Glucose ABG Lactic Acid Hemoglobin Chloride Glucose POC Glucose (mg/dL) 195 H 179 H Calcium Ionized Calcium [place] Magnesium AST Alkaline Phosphatase Total Protein Albumin Arterial Blood Potassium Arterial Blood Glucose Crossmatch 01/28/19 01/28/19 01/28/19 03:01 04:09 04:10 WBC RBC 3.27 L Hgb 9.4 L Hct 28.0 L Plt Count 79 L Neutrophils # Lymphocytes # 0.6 L PT INR ABG pH ABG pCO2 ABG pO2 ABG HCO3 ABG Total CO2 ABG O2 Saturation ABG Hematocrit ABG Sodium ABG Potassium ABG Ionized Calcium ABG Glucose ABG Lactic Acid Hemoglobin Chloride Glucose POC Glucose (mg/dL) 158 H 141 H Calcium Ionized Calcium Em[place] Magnesium AST Alkaline Phosphatase Total Protein Albumin Arterial Blood Potassium Arterial Blood Glucose Crossmatch 01/28/19 01/28/19 01/28/19 04:10 05:01 06:16 WBC RBC Hgb Hct Plt Count Neutrophils # Lymphocytes # PT INR ABG pH ABG pCO2 ABG pO2 ABG HCO3 ABG Total CO2 ABG O2 Saturation ABG Hematocrit ABG Sodium ABG Potassium ABG Ionized Calcium ABG Glucose ABG Lactic Acid Hemoglobin Chloride 110 H Glucose 125 H POC Glucose (mg/dL) 140 H 145 H Calcium 7.6 L Ionized Calcium Em[place] Magnesium 2.5 H AST 72 H Alkaline Phosphatase 25 L Total Protein 4.4 L Albumin 2.7 L Arterial Blood Potassium Arterial Blood Glucose Crossmatch 01/28/19 01/28/19 01/28/19 07:16 08:18 08:53 WBC RBC Hgb Hct Plt Count Neutrophils # Lymphocytes # PT INR ABG pH ABG pCO2 ABG pO2 ABG HCO3 ABG Total CO2 ABG O2 Saturation ABG Hematocrit ABG Sodium ABG Potassium ABG Ionized Calcium ABG Glucose ABG Lactic Acid Hemoglobin Chloride Glucose POC Glucose (mg/dL) 136 H 122 H 110 H Calcium Ionized Calcium Em[place] Magnesium AST Alkaline Phosphatase Total Protein Albumin Arterial Blood Potassium Arterial Blood Glucose Crossmatch 01/28/19 01/28/19 10:13 11:08 WBC RBC Hgb Hct Plt Count Neutrophils # Lymphocytes # PT INR ABG pH ABG pCO2 ABG pO2 ABG HCO3 ABG Total CO2 ABG O2 Saturation ABG Hematocrit ABG Sodium ABG Potassium ABG Ionized Calcium ABG Glucose ABG Lactic Acid Hemoglobin Chloride Glucose POC Glucose (mg/dL) 131 H 137 H Calcium Ionized Calcium [place] Magnesium AST Alkaline Phosphatase Total Protein Albumin Arterial Blood Potassium Arterial Blood Glucose Crossmatch - Diagnostic Findings Chest x-ray: image reviewed (Trace of pleural effusion is noted, left basilar atelectasis is noted. No evidence of pneumothorax. Thoracostomy tubes noted) Assessment and Plan Assessment: Impression: 1 status post CABG/three-vessel, postoperative day #1 2 type 2 diabetes. 3 history of Graves' disease 4 ex-smoker, mild COPD FEV1 of 75% 5 strong family history of premature coronary artery disease 6 obesity 7 benign essential hypertension Recommendation: A was extubated this morning uneventfully, will continue beta blockers, Plavix, statin, aspirin, continue to wean O2 as tolerated, increase activity, continue incentive spirometry, continue bronchodilators, continue to monitor daily x- rays, continue pain control, discontinue unnecessary lines and catheters, we'll continue to follow. Time with Patient: Greater than 30
[2019-01-28] MEDS: LACTATED RINGERS 1,000 ML IV SCH (11:55)
[2019-01-28 12:08] LABS: Glucose,Whole Blood 156 mg/dL (75-99)
[2019-01-28 13:24] LABS: Glucose,Whole Blood 167 mg/dL (75-99)
[2019-01-28 14:11] LABS: Glucose,Whole Blood 155 mg/dL (75-99)
[2019-01-28 16:35] LABS: Glucose,Whole Blood 127 mg/dL (75-99)
[2019-01-28 17:30] LABS: Glucose,Whole Blood 113 mg/dL (75-99)
[2019-01-28 18:18] LABS: Glucose,Whole Blood 145 mg/dL (75-99)
[2019-01-28 19:15] LABS: Glucose,Whole Blood 173 mg/dL (75-99)
[2019-01-28 20:11] LABS: Glucose,Whole Blood 169 mg/dL (75-99)
[2019-01-28] MEDS: SENNOSIDES-DOCUSATE SODIUM 1 EACH TAB PO SCH (20:35)
[2019-01-28 21:19] LABS: Glucose,Whole Blood 151 mg/dL (75-99)
[2019-01-29] MEDS: HEPARIN SODIUM,PORCINE 5,000 UNIT/ML 1 ML VIAL SQ SCH ×4 (00:01→23:12)
[2019-01-29 00:07] LABS: Glucose,Whole Blood 160 mg/dL (75-99)
[2019-01-29 01:14] LABS: Glucose,Whole Blood 160 mg/dL (75-99)
[2019-01-29] MEDS: HYDROcodone/APAP 5-325MG 1 EACH TAB PO PRN ×4 (01:54→19:41)
[2019-01-29 01:58] LABS: Glucose,Whole Blood 153 mg/dL (75-99)
[2019-01-29 03:05] LABS: Glucose,Whole Blood 151 mg/dL (75-99)
[2019-01-29 05:21] LABS: Glucose,Whole Blood 160 mg/dL (75-99)
[2019-01-29 05:36] LABS: Basophils % (A) 0 %; Eosinophils % (A) 0 %; HCT 24.1 % (34.0-46.0); HGB 8.6 gm/dL (11.4-16.0); Lymphocytes # (A) 0.9 k/uL (1.0-4.8); Lymphocytes % (A) 9 %; MCH 30.1 pg (25.0-35.0); MCHC 35.8 g/dL (31.0-37.0); MCV 84.1 fL (80.0-100.0); Mean Platelet Volume 9.1; Monocytes # (A) 0.5 k/uL (0-1.0); Monocytes % (A) 5 %; Neutrophils # (A) 8.6 k/uL (1.3-7.7); Neutrophils % (A) 86 %; RBC 2.86 m/uL (3.80-5.40); RDW 14.4 % (11.5-15.5)
[2019-01-29 05:38] LABS: Platelet Count 78 k/uL (150-450)
[2019-01-29 05:41] LABS: Ionized Calcium 4.9 mg/dL (4.5-5.3)
[2019-01-29 06:04] LABS: Albumin 3.1 g/dL (3.5-5.0); Calcium 8.5 mg/dL (8.4-10.2); Potassium 3.9 mmol/L (3.5-5.1); Total Bilirubin 0.9 mg/dL (0.2-1.3); Total Protein 4.9 g/dL (6.3-8.2)
[2019-01-29 06:10] LABS: Glucose,Whole Blood 146 mg/dL (75-99)
[2019-01-29] MEDS: PANTOPRAZOLE 40 MG TABLET PO SCH (06:32)
[2019-01-29] MEDS ORDERED: POTASSIUM CHLORIDE ER 20 MEQ TAB.ER PO SCH (07:00)
[2019-01-29 07:11] LABS: Glucose,Whole Blood 149 mg/dL (75-99)
[2019-01-29] MEDS: IPRATROPIUM-ALBUTEROL 3 ML NEB INHALATION SCH ×4 (07:22→19:30)
--- NOTE | 2019-01-29 07:41 | XR ---
EXAMINATION TYPE: XR chest 1V portable DATE OF EXAM: 01/29/2019 COMPARISON: 01/28/2019 HISTORY: Shortness of breath. Status post cardiac surgery. TECHNIQUE: Single frontal view of the chest is obtained. FINDINGS: Cardiomediastinal silhouette is exaggerated secondary to low lung volumes however remains overall enlarged. Prominence of the right hilum is unchanged. Right [place]-Donny catheter and mediastina l drain have been removed. Thoracostomy tubes remain. Right internal jugular approach central venous catheter sheath is also in place. No sizable pneumothorax. Trace pleural effusions and strand-like le ft basilar probable atelectasis. IMPRESSION: Normal Laurens-Donny catheter and mediastinal drain. Lower lung volumes exaggerate the alrea dy enlarged cardiomediastinal silhouette. Trace pleural effusions and strand-like left basilar probab le atelectasis are again seen.
[2019-01-29 08:32] LABS: Glucose,Whole Blood 166 mg/dL (75-99)
[2019-01-29] MEDS: MULTIVITAMINS, THERA 1 EACH TAB PO SCH (08:51)
[2019-01-29] MEDS: ASPIRIN 325 MG TAB PO SCH (08:51)
[2019-01-29] MEDS: CLOPIDOGREL 75 MG TAB PO SCH (08:51)
[2019-01-29] MEDS: ATORVASTATIN 40 MG TAB PO SCH (08:51)
[2019-01-29] MEDS: CHOLECALCIFEROL 1,000 UNIT TAB PO SCH (08:51)
[2019-01-29] MEDS: METOPROLOL TARTRATE 12.5 MG TAB PO SCH ×2 (08:51→20:19)
[2019-01-29] MEDS: INSULIN REGULAR 100 UNIT in SODIUM CHLORIDE 0.9% 100 ML IV SCH (08:55)
[2019-01-29 09:06] LABS: Glucose,Whole Blood 164 mg/dL (75-99)
--- NOTE | 2019-01-29 09:16 | P.PN ---
Subjective Progress Note Date: 01/29/19 This is a 78-year-old female patient who presented for triple bypass coronary artery bypass graft surgery with Dr. Johnson on 01/27/2019. Patient recently underwent cardiac catheterization in which showed in-stent stenosis as well as a LAD disease involving the takeoff of a large diagonal artery. Patient has a known past medical history of coronary artery disease with stent of the RCA last year, diabetes mellitus, hyperlipidemia, hypertension, osteoarthritis, Graves' disease and ex-smoker. Patient is currently postop day 1. Patient has been extubated per protocol. Patient is currently sitting up in chair. Patient stresses that she is having some increased discomfort. Patient remains on insul in drip. Discussed with cardiothoracic team plans to remove mediastinal chest tube and [place] today. Incentive spirometer encouraged. On 01/29/2018 patient is alert and oriented 3. Patient feels improved from yesterday. Insulin drip to be DC'd and transitioned before meals at bedtime insulin. Chest tubes to be removed prior cardiothoracic surgery. Patient denies any shortness of breath. Patient denies nausea vomiting or diarrhea. Patient denies any urinary burning or frequency. Objective - Vital Signs Vital signs: Vital Signs Temp 98.3 F 01/29/19 04:00 Pulse 83 01/29/19 07:35 Resp 26 H 01/29/19 07:00 BP 114/58 01/28/19 19:00 Pulse Ox 99 01/29/19 07:23 Intake & Output 01/28/19 01/29/19 01/29/19 18:59 06:59 18:59 Intake Total 1186.303 440.678 29.963 Output Total 673 447 200 Balance 513.303 -6.322 -170.037 Weight 81.6 kg 88.4 kg Intake: IV 540 306 26 0.9 Pressure Bag 66 6 Albumin Human 5% 250 ml 250 In Empty Bag 1 bag @ 250 mls/hr IVPB Q1HR PRN Rx#: [id number] CO/CI 20 LR 270 240 20 Intake, IV Titration 26.303 34.678 3.963 Amount Insulin Regular 100 unit 26.303 34.678 3.963 In Sodium Chloride 0.9% 100 ml @ Per Protocol IV .Q0M [facility] Rx#:[id number] Oral 620 100 Output: Chest Tube Drainage 138 50 100 Left Pleural 32 10 70 Mediastinal 60 Right Pleural 46 40 30 Drainage 50 30 50 Left Leg DANIELA 50 30 50 Urine 485 367 50 Other: Voiding Method Indwelling Catheter Indwelling Catheter ABP, PAP, CO, CI - Last Documented Arterial Blood Pressure 115/50 Pulmonary Artery Pressure 22/12 Cardiac Output 4.6 Cardiac Index 2.3 - Exam Head normocephalic Neck supple Lungs clear to auscultation bilaterally no wheezing or crackles Heart regular rate and rhythm S1-S2, no rub or gallop Abdomen is soft nontender nondistended positive bowel sounds no hepatosplenomegaly Extremities no edema Neuro alert and orientated to [address] Sternal dressing clean dry and intact heart hugger in place - Labs CBC & Chem 7: 01/29/19 05:10 01/29/19 05:10 Labs: Abnormal Lab Results - Last 24 Hours (Table) 01/28/19 01/28/19 01/28/19 Range/Units 10:13 11:08 11:57 RBC (3.80-5.40) m/uL Hgb (11.4-16.0) gm/dL Hct (34.0-46.0) % Plt Count (150-450) k/uL Neutrophils # (1.3-7.7) k/uL Lymphocytes # (1.0-4.8) k/uL BUN (7-17) mg/dL Glucose (74-99) mg/dL POC Glucose (mg/dL) 131 H 137 H 156 H (75-99) mg/dL AST (14-36) U/L Alkaline Phosphatase (38-126) U/L Total Protein (6.3-8.2) g/dL Albumin (3.5-5.0) g/dL 01/28/19 01/28/19 01/28/19 Range/Units 13:13 13:59 16:24 RBC (3.80-5.40) m/uL Hgb (11.4-16.0) gm/dL Hct (34.0-46.0) % Plt Count (150-450) k/uL Neutrophils # (1.3-7.7) k/uL Lymphocytes # (1.0-4.8) k/uL BUN (7-17) mg/dL Glucose (74-99) mg/dL POC Glucose (mg/dL) 167 H 155 H 127 H (75-99) mg/dL AST (14-36) U/L Alkaline Phosphatase (38-126) U/L Total Protein (6.3-8.2) g/dL Albumin (3.5-5.0) g/dL 01/28/19 01/28/19 01/28/19 Range/Units 17:18 18:06 19:04 RBC (3.80-5.40) m/uL Hgb (11.4-16.0) gm/dL Hct (34.0-46.0) % Plt Count (150-450) k/uL Neutrophils # (1.3-7.7) k/uL Lymphocytes # (1.0-4.8) k/uL BUN (7-17) mg/dL Glucose (74-99) mg/dL POC Glucose (mg/dL) 113 H 145 H 173 H (75-99) mg/dL AST (14-36) U/L Alkaline Phosphatase (38-126) U/L Total Protein (6.3-8.2) g/dL Albumin (3.5-5.0) g/dL 01/28/19 01/28/19 01/28/19 Range/Units 19:59 21:07 23:56 RBC (3.80-5.40) m/uL Hgb (11.4-16.0) gm/dL Hct (34.0-46.0) % Plt Count (150-450) k/uL Neutrophils # (1.3-7.7) k/uL Lymphocytes # (1.0-4.8) k/uL BUN (7-17) mg/dL Glucose (74-99) mg/dL POC Glucose (mg/dL) 169 H 151 H 160 H (75-99) mg/dL AST (14-36) U/L Alkaline Phosphatase (38-126) U/L Total Protein (6.3-8.2) g/dL Albumin (3.5-5.0) g/dL 01/29/19 01/29/19 01/29/19 Range/Units 01:02 01:47 02:54 RBC (3.80-5.40) m/uL Hgb (11.4-16.0) gm/dL Hct (34.0-46.0) % Plt Count (150-450) k/uL Neutrophils # (1.3-7.7) k/uL Lymphocytes # (1.0-4.8) k/uL BUN (7-17) mg/dL Glucose (74-99) mg/dL POC Glucose (mg/dL) 160 H 153 H 151 H (75-99) mg/dL AST (14-36) U/L Alkaline Phosphatase (38-126) U/L Total Protein (6.3-8.2) g/dL Albumin (3.5-5.0) g/dL 01/29/19 01/29/19 01/29/19 Range/Units 05:08 05:10 05:10 RBC 2.86 L (3.80-5.40) m/uL Hgb 8.6 L (11.4-16.0) gm/dL Hct 24.1 L (34.0-46.0) % Plt Count 78 L (150-450) k/uL Neutrophils # 8.6 H (1.3-7.7) k/uL Lymphocytes # 0.9 L (1.0-4.8) k/uL BUN 20 H (7-17) mg/dL Glucose 139 H (74-99) mg/dL POC Glucose (mg/dL) 160 H (75-99) mg/dL AST 40 H (14-36) U/L Alkaline Phosphatase 35 L (38-126) U/L Total Protein 4.9 L (6.3-8.2) g/dL Albumin 3.1 L (3.5-5.0) g/dL 01/29/19 01/29/19 01/29/19 Range/Units 05:59 07:00 08:20 RBC (3.80-5.40) m/uL Hgb (11.4-16.0) gm/dL Hct (34.0-46.0) % Plt Count (150-450) k/uL Neutrophils # (1.3-7.7) k/uL Lymphocytes # (1.0-4.8) k/uL BUN (7-17) mg/dL Glucose (74-99) mg/dL POC Glucose (mg/dL) 146 H 149 H 166 H (75-99) mg/dL AST (14-36) U/L Alkaline Phosphatase (38-126) U/L Total Protein (6.3-8.2) g/dL Albumin (3.5-5.0) g/dL 01/29/19 Range/Units 08:55 RBC (3.80-5.40) m/uL Hgb (11.4-16.0) gm/dL Hct (34.0-46.0) % Plt Count (150-450) k/uL Neutrophils # (1.3-7.7) k/uL Lymphocytes # (1.0-4.8) k/uL BUN (7-17) mg/dL Glucose (74-99) mg/dL POC Glucose (mg/dL) 164 H (75-99) mg/dL AST (14-36) U/L Alkaline Phosphatase (38-126) U/L Total Protein (6.3-8.2) g/dL Albumin (3.5-5.0) g/dL Assessment and Plan Assessment: 1. Status post coronary artery bypass graft surgery triple-vessel. Patient is currently postop day 1. Patient has been estimated per protocol. Critical care services are following 2. Coronary artery disease with previous stents to RCA 3. History of Graves' disease. 4. Ex-smoker 5. Diabetes mellitus. Hemoglobin A1c 7.6 on 01/16/2019. Insulin drip to be DC'd transition to ac/hs insulin 6. History of essential hypertension 7. History of osteoarthritis 8. History of hyperlipidemia DVT prophylaxis heparin. GI prophylaxis Protonix Thank you for this consultation we'll continue to follow patient closely throughout stay I performed an examination of the patient and discussed their management with the Nurse Practitioner. I have reviewed the Nurse Practitioner's notes and agree with the documented findings and plan of care
[2019-01-29] MEDS ORDERED: FUROSEMIDE 10 MG/ML 2 ML VIAL IV STA (10:38)
--- NOTE | 2019-01-29 10:52 | P.PN ---
Subjective Progress Note Date: 01/29/19 Principal diagnosis: Coronary artery disease with previous stenting to the RCA in April 2018, preserved left ventricular function, obesity, hypertension, hyperlipidemia, diabetes with preoperative hemoglobin A1c 7.6%, history of Graves' disease, previous tobacco dependence, mild COPD with preoperative FEV1 75% of predicted, paroxysmal atrial fibrillation on presentation the morning of surgery, family history of premature coronary artery disease. POD #2 triple vessel coronary artery bypass grafting using the left internal mammary artery to the left anterior descending artery, a reverse greater saphenous vein graft from the aorta to the first diagonal coronary artery, a reverse greater saphenous vein graft from the aorta to the right coronary artery. Bilateral pulmonary vein isolation using bipolar radiofrequency clamp. Exclusion of the left atrial appendage using 45 mm AtriClip. Left greater saphenous vein endoscopic harvesting from the groin to above the ankle level. Intraoperative transesophageal echocardiogram and epi-aortic scanning. Acute postoperative blood loss anemia, an expected outcome due to cardiopulmonary bypass and hemodilution. The patient is currently sitting up to the bedside chair in the intensive care unit. She is in no acute distress. She is complaining of surgical type pain to her left and right pleural chest tube insertion sites. Denies any complaints of shortness of breath. Bedside monitor is showing normal sinus rhythm heart rate 72. Epicardial pacemaker wires in place and connected to bedside pacemaker generator on a VVI backup 50. She remains hemodynamically stable and is currently on no inotropic or pressor support. Left and right pleural chest tube to remain in place to low continuous wall suction -20 cm H2O. No air leak is present. Draining thin serosanguineous drainage. She is complaining of postoperative generalized weakness. He remains alert and oriented 3. Objective - Vital Signs Vital signs: Vital Signs Temp 98 F 01/29/19 08:00 Pulse 79 01/29/19 10:00 Resp 12 01/29/19 10:00 BP 120/64 01/29/19 10:00 Pulse Ox 98 01/29/19 10:00 Intake & Output 01/28/19 01/29/19 01/29/19 18:59 06:59 18:59 Intake Total 1186.303 440.678 95.963 Output Total 673 447 330 Balance 513.303 -6.322 -234.037 Weight 81.6 kg 88.4 kg Intake: IV 540 306 92 0.9 Pressure Bag 66 12 Albumin Human 5% 250 ml 250 In Empty Bag 1 bag @ 250 mls/hr IVPB Q1HR PRN Rx#: [id number] CO/CI 20 LR 270 240 80 Intake, IV Titration 26.303 34.678 3.963 Amount Insulin Regular 100 unit 26.303 34.678 3.963 In Sodium Chloride 0.9% 100 ml @ Per Protocol IV .Q0M [facility] Rx#:[id number] Oral 620 100 Output: Chest Tube Drainage 138 50 200 Left Pleural 32 10 170 Mediastinal 60 Right Pleural 46 40 30 Drainage 50 30 80 Left Leg DANIELA 50 30 80 Urine 485 367 50 Other: Voiding Method Indwelling Catheter Indwelling Catheter ABP, PAP, CO, CI - Last Documented Arterial Blood Pressure 103/40 Pulmonary Artery Pressure 22/12 Cardiac Output 4.6 Cardiac Index 2.3 - Constitutional General appearance: Present: cooperative, no acute distress, obese - Respiratory Details: Lungs sounds diminished bilateral bases. Respirations are symmetrical and nonlabored. Oxygen saturation are 98% on 2 L nasal cannula. Achieving 500 mL on her incentive spirometry. Left and right pleural chest tubes remain in place to low continuous wall suction -20 cm H2O. No air leak is present. Draining thin serosanguineous drainage. Left pleural chest tube with 10 mL output in the last 8 hours, 240 mL output in the last 24 hours. Right pleural chest tube with 40 mL output in the last 8 hours, 210 mL output in the last 24 hours. - Cardiovascular Details: Regular rhythm and rate. S1 and S2 present, negative for S3, gallop or murmur. Sternum is stable. Bedside telemetry showing normal sinus rhythm heart rate 72. Atrial and ventricular epicardial pacemaker wires in place to bedside backup pacemaker generator at a VVI 50. Generalized trace edema present. Right IJ Cordis in place and functioning. Right radial arterial line in place and functioning. Heart hugger is in place and she is demonstrating appropriate use. Knee-high TIO hose and sequential compression devices in place to her bilateral lower extremities. - Gastrointestinal Gastrointestinal Comment(s): Abdomen is soft, nontender and nondistended. Hypoactive bowel sounds present in all 4 abdominal quadrants. Passing flatus. No guarding or rigidity. No organomegaly. - Genitourinary Genitourinary Comment(s): Curtis catheter in place for accurate I&O. Draining clear yellow urine. 250 mL output in the last 8 hours. - Integumentary Integumentary Comment(s): Skin is warm and dry. No clubbing or cyanosis is present. Midline sternal incision is clean, dry and approximated. No drainage or redness is present. Left lower extremity EVH site is clean, dry and approximated. No drainage or redness is present. DANIELA drain in place draining thin serosanguineous drainage with 40 mL output in the last 8 hours. - Neurologic Neurologic: Present: CNII-XII intact - Musculoskeletal Musculoskeletal: Present: gait normal, generalized weakness, strength equal bilaterally - Psychiatric Psychiatric: Present: A&O x's 3, appropriate affect, intact judgment & insight - Allied health notes Allied health notes reviewed: nursing - Labs CBC & Chem 7: 01/29/19 05:10 01/29/19 05:10 Labs: Abnormal Lab Results - Last 24 Hours (Table) 01/28/19 01/28/19 01/28/19 Range/Units 11:08 11:57 13:13 RBC (3.80-5.40) m/uL Hgb (11.4-16.0) gm/dL Hct (34.0-46.0) % Plt Count (150-450) k/uL Neutrophils # (1.3-7.7) k/uL Lymphocytes # (1.0-4.8) k/uL BUN (7-17) mg/dL Glucose (74-99) mg/dL POC Glucose (mg/dL) 137 H 156 H 167 H (75-99) mg/dL AST (14-36) U/L Alkaline Phosphatase (38-126) U/L Total Protein (6.3-8.2) g/dL Albumin (3.5-5.0) g/dL 01/28/19 01/28/19 01/28/19 Range/Units 13:59 16:24 17:18 RBC (3.80-5.40) m/uL Hgb (11.4-16.0) gm/dL Hct (34.0-46.0) % Plt Count (150-450) k/uL Neutrophils # (1.3-7.7) k/uL Lymphocytes # (1.0-4.8) k/uL BUN (7-17) mg/dL Glucose (74-99) mg/dL POC Glucose (mg/dL) 155 H 127 H 113 H (75-99) mg/dL AST (14-36) U/L Alkaline Phosphatase (38-126) U/L Total Protein (6.3-8.2) g/dL Albumin (3.5-5.0) g/dL 01/28/19 01/28/19 01/28/19 Range/Units 18:06 19:04 19:59 RBC (3.80-5.40) m/uL Hgb (11.4-16.0) gm/dL Hct (34.0-46.0) % Plt Count (150-450) k/uL Neutrophils # (1.3-7.7) k/uL Lymphocytes # (1.0-4.8) k/uL BUN (7-17) mg/dL Glucose (74-99) mg/dL POC Glucose (mg/dL) 145 H 173 H 169 H (75-99) mg/dL AST (14-36) U/L Alkaline Phosphatase (38-126) U/L Total Protein (6.3-8.2) g/dL Albumin (3.5-5.0) g/dL 01/28/19 01/28/19 01/29/19 Range/Units 21:07 23:56 01:02 RBC (3.80-5.40) m/uL Hgb (11.4-16.0) gm/dL Hct (34.0-46.0) % Plt Count (150-450) k/uL Neutrophils # (1.3-7.7) k/uL Lymphocytes # (1.0-4.8) k/uL BUN (7-17) mg/dL Glucose (74-99) mg/dL POC Glucose (mg/dL) 151 H 160 H 160 H (75-99) mg/dL AST (14-36) U/L Alkaline Phosphatase (38-126) U/L Total Protein (6.3-8.2) g/dL Albumin (3.5-5.0) g/dL 01/29/19 01/29/19 01/29/19 Range/Units 01:47 02:54 05:08 RBC (3.80-5.40) m/uL Hgb (11.4-16.0) gm/dL Hct (34.0-46.0) % Plt Count (150-450) k/uL Neutrophils # (1.3-7.7) k/uL Lymphocytes # (1.0-4.8) k/uL BUN (7-17) mg/dL Glucose (74-99) mg/dL POC Glucose (mg/dL) 153 H 151 H 160 H (75-99) mg/dL AST (14-36) U/L Alkaline Phosphatase (38-126) U/L Total Protein (6.3-8.2) g/dL Albumin (3.5-5.0) g/dL 01/29/19 01/29/19 01/29/19 Range/Units 05:10 05:10 05:59 RBC 2.86 L (3.80-5.40) m/uL Hgb 8.6 L (11.4-16.0) gm/dL Hct 24.1 L (34.0-46.0) % Plt Count 78 L (150-450) k/uL Neutrophils # 8.6 H (1.3-7.7) k/uL Lymphocytes # 0.9 L (1.0-4.8) k/uL BUN 20 H (7-17) mg/dL Glucose 139 H (74-99) mg/dL POC Glucose (mg/dL) 146 H (75-99) mg/dL AST 40 H (14-36) U/L Alkaline Phosphatase 35 L (38-126) U/L Total Protein 4.9 L (6.3-8.2) g/dL Albumin 3.1 L (3.5-5.0) g/dL 01/29/19 01/29/19 01/29/19 Range/Units 07:00 08:20 08:55 RBC (3.80-5.40) m/uL Hgb (11.4-16.0) gm/dL Hct (34.0-46.0) % Plt Count (150-450) k/uL Neutrophils # (1.3-7.7) k/uL Lymphocytes # (1.0-4.8) k/uL BUN (7-17) mg/dL Glucose (74-99) mg/dL POC Glucose (mg/dL) 149 H 166 H 164 H (75-99) mg/dL AST (14-36) U/L Alkaline Phosphatase (38-126) U/L Total Protein (6.3-8.2) g/dL Albumin (3.5-5.0) g/dL - Imaging and Cardiology Chest x-ray: report reviewed, image reviewed Assessment and Plan Assessment: 1. Coronary artery disease with previous stenting to the RCA in April 2018, status post three-vessel CABG 2. Preserved left ventricular function, with the preoperative ejection fraction 60-65% 3. Obesity 4. Hypertension 5. Hyperlipidemia 6. Diabetes with preoperative hemoglobin A1c 7.6% 7. History of Graves' disease 8. Previous tobacco dependence 9. Mild COPD with preoperative FEV1 75% of predicted 10. Preoperative paroxysmal atrial fibrillation, present the morning of surgery, status post bilateral pulmonary vein isolation and exclusion of the left atrial appendage 11. Family history of premature coronary artery disease 12. Acute postoperative blood loss anemia, an expected outcome Plan: 1. Continue to optimize medically with aspirin, statin, Plavix, and beta reagan. Will increase beta reagan therapy as tolerated. 2. Wean O2 as tolerated. Encourage incentive spirometry is 10 times every hour while awake 3. Increase activity, ambulate as tolerated. PT/OT/cardiac rehab following. 4. Bronchodilators per pulmonology management. 5. Will monitor daily labs and chest x-rays. Electrolyte replacement per protocol. No transfusion. 6. Pain control with current medication regimen. 7. Discontinue right IJ Cordis and right radial arterial line. 8. Will discontinue right and left pleural chest tubes. 9. Insulin management per her care services. 10. GI/DVT prophylaxis. 11. Increase diet as tolerated. 12. Ground and epicardial pacemaker wires. 13. Lasix 20 mg IV 1 now. 14. May transfer to 3 cardiac stepdown unit when bed available. 15. Encouraged continued smoking cessation. 16. More recommendations to follow based on patient's progress. Left and right pleural chest tubes removed without incident at 10:10 AM this morning. Sutures secured in place and covered with a folded 4 x 4 gauze and secured with tape. Time with Patient: Greater than 30
--- NOTE | 2019-01-29 11:12 | P.PN ---
Subjective This is Nicolasa Lozano PA-C dictating a progress note on this patient The patient was interviewed and examined by me IMPRESSION / ASSESSMENT: CAD with previous stenting, status post CABG 3 Hypertension Dyslipidemia Diabetes Paroxysmal atrial fibrillation Graves' disease PLAN: Continue dual antiplatelet therapy, continue atorvastatin 40 mg daily, and beta reagan therapy as tolerated Atrial fibrillation documented on presentation the morning of the surgery, status post left atrial appendage exclusion and bilateral PVI, on dual antip latelet therapy HPI The patient is a 78-year-old female with a past medical history of coronary art donovan disease status post stenting, diabetes, dyslipidemia, hypertension, paroxysmal atrial fibrillation and Graves' disease who presented for coronary artery bypass grafting. She is postop day 2 from a triple vessel coronary artery bypass grafting using the left internal mammary artery to the left a nterior descending artery, reverse saphenous vein graft from the aorta to the first diagonal artery, reverse saphenous vein graft from the aorta to the right coronary artery, bilateral PVI, and left atrial appendage exclusion. She is sitting up in the chair today, complaining of some chest soreness. EXAMINATION: Temperature 98F, pulse 79, respirations 12, blood pressure 120/64, oxygen saturation 98% on 2 L nasal cannula Patient seen and examined sitting in the chair, no acute distress Sternotomy dressing clean dry and intact Heart regular, no murmurs appreciated Lung sounds mildly diminished bilaterally, equal No lower extremity edema REVIEW OF LABS, ECG & MEDICAL DATA WBC 10, hemoglobin 8.6, electrolytes within normal limits, BUN 20, creatinine 0.76 Objective - Vital Signs Vital signs: Vital Signs Temp 98 F 01/29/19 08:00 Pulse 79 01/29/19 10:00 Resp 12 01/29/19 10:00 BP 120/64 01/29/19 10:00 Pulse Ox 98 01/29/19 10:00 Intake & Output 01/28/19 01/29/19 01/29/19 18:59 06:59 18:59 Intake Total 1186.303 440.678 95.963 Output Total 673 447 330 Balance 513.303 -6.322 -234.037 Weight 81.6 kg 88.4 kg Intake: IV 540 306 92 0.9 Pressure Bag 66 12 Albumin Human 5% 250 ml 250 In Empty Bag 1 bag @ 250 mls/hr IVPB Q1HR PRN Rx#: [id number] CO/CI 20 LR 270 240 80 Intake, IV Titration 26.303 34.678 3.963 Amount Insulin Regular 100 unit 26.303 34.678 3.963 In Sodium Chloride 0.9% 100 ml @ Per Protocol IV .Q0M [facility] Rx#:[id number] Oral 620 100 Output: Chest Tube Drainage 138 50 200 Left Pleural 32 10 170 Mediastinal 60 Right Pleural 46 40 30 Drainage 50 30 80 Left Leg DANIELA 50 30 80 Urine 485 367 50 Other: Voiding Method Indwelling Catheter Indwelling Catheter ABP, PAP, CO, CI - Last Documented Arterial Blood Pressure 103/40 Pulmonary Artery Pressure 22/12 Cardiac Output 4.6 Cardiac Index 2.3 - Labs CBC & Chem 7: 01/29/19 05:10 01/29/19 05:10 Labs: Abnormal Lab Results - Last 24 Hours (Table) 01/28/19 01/28/19 01/28/19 Range/Units 11:08 11:57 13:13 RBC (3.80-5.40) m/uL Hgb (11.4-16.0) gm/dL Hct (34.0-46.0) % Plt Count (150-450) k/uL Neutrophils # (1.3-7.7) k/uL Lymphocytes # (1.0-4.8) k/uL BUN (7-17) mg/dL Glucose (74-99) mg/dL POC Glucose (mg/dL) 137 H 156 H 167 H (75-99) mg/dL AST (14-36) U/L Alkaline Phosphatase (38-126) U/L Total Protein (6.3-8.2) g/dL Albumin (3.5-5.0) g/dL 01/28/19 01/28/19 01/28/19 Range/Units 13:59 16:24 17:18 RBC (3.80-5.40) m/uL Hgb (11.4-16.0) gm/dL Hct (34.0-46.0) % Plt Count (150-450) k/uL Neutrophils # (1.3-7.7) k/uL Lymphocytes # (1.0-4.8) k/uL BUN (7-17) mg/dL Glucose (74-99) mg/dL POC Glucose (mg/dL) 155 H 127 H 113 H (75-99) mg/dL AST (14-36) U/L Alkaline Phosphatase (38-126) U/L Total Protein (6.3-8.2) g/dL Albumin (3.5-5.0) g/dL 01/28/19 01/28/19 01/28/19 Range/Units 18:06 19:04 19:59 RBC (3.80-5.40) m/uL Hgb (11.4-16.0) gm/dL Hct (34.0-46.0) % Plt Count (150-450) k/uL Neutrophils # (1.3-7.7) k/uL Lymphocytes # (1.0-4.8) k/uL BUN (7-17) mg/dL Glucose (74-99) mg/dL POC Glucose (mg/dL) 145 H 173 H 169 H (75-99) mg/dL AST (14-36) U/L Alkaline Phosphatase (38-126) U/L Total Protein (6.3-8.2) g/dL Albumin (3.5-5.0) g/dL 01/28/19 01/28/19 01/29/19 Range/Units 21:07 23:56 01:02 RBC (3.80-5.40) m/uL Hgb (11.4-16.0) gm/dL Hct (34.0-46.0) % Plt Count (150-450) k/uL Neutrophils # (1.3-7.7) k/uL Lymphocytes # (1.0-4.8) k/uL BUN (7-17) mg/dL Glucose (74-99) mg/dL POC Glucose (mg/dL) 151 H 160 H 160 H (75-99) mg/dL AST (14-36) U/L Alkaline Phosphatase (38-126) U/L Total Protein (6.3-8.2) g/dL Albumin (3.5-5.0) g/dL 01/29/19 01/29/19 01/29/19 Range/Units 01:47 02:54 05:08 RBC (3.80-5.40) m/uL Hgb (11.4-16.0) gm/dL Hct (34.0-46.0) % Plt Count (150-450) k/uL Neutrophils # (1.3-7.7) k/uL Lymphocytes # (1.0-4.8) k/uL BUN (7-17) mg/dL Glucose (74-99) mg/dL POC Glucose (mg/dL) 153 H 151 H 160 H (75-99) mg/dL AST (14-36) U/L Alkaline Phosphatase (38-126) U/L Total Protein (6.3-8.2) g/dL Albumin (3.5-5.0) g/dL 01/29/19 01/29/19 01/29/19 Range/Units 05:10 05:10 05:59 RBC 2.86 L (3.80-5.40) m/uL Hgb 8.6 L (11.4-16.0) gm/dL Hct 24.1 L (34.0-46.0) % Plt Count 78 L (150-450) k/uL Neutrophils # 8.6 H (1.3-7.7) k/uL Lymphocytes # 0.9 L (1.0-4.8) k/uL BUN 20 H (7-17) mg/dL Glucose 139 H (74-99) mg/dL POC Glucose (mg/dL) 146 H (75-99) mg/dL AST 40 H (14-36) U/L Alkaline Phosphatase 35 L (38-126) U/L Total Protein 4.9 L (6.3-8.2) g/dL Albumin 3.1 L (3.5-5.0) g/dL 01/29/19 01/29/19 01/29/19 Range/Units 07:00 08:20 08:55 RBC (3.80-5.40) m/uL Hgb (11.4-16.0) gm/dL Hct (34.0-46.0) % Plt Count (150-450) k/uL Neutrophils # (1.3-7.7) k/uL Lymphocytes # (1.0-4.8) k/uL BUN (7-17) mg/dL Glucose (74-99) mg/dL POC Glucose (mg/dL) 149 H 166 H 164 H (75-99) mg/dL AST (14-36) U/L Alkaline Phosphatase (38-126) U/L Total Protein (6.3-8.2) g/dL Albumin (3.5-5.0) g/dL
--- NOTE | 2019-01-29 11:22 | P.PN ---
Subjective Progress Note Date: 01/29/19 Principal diagnosis: Status post CABG postoperative day #2. Patient was reevaluated today on 01/29/2019, patient is postoperative day #2, triple vessel coronary artery bypass, SANDOVAL to LAD, RSV to first diagonal, RSV to RCA. Patient was extubated yesterday uneventfully, and she is doing great today. She has mostly pain, and I recommended Dilaudid 0.5 mg IV push 1 for her severe pain mostly chest wall pain. And the pain is also at the site of the chest tubes insertions. This will be removed shortly. Patient is not requiring any pressors or inotropes. She is alert oriented 3, denies any shortness of breath. Hemoglobin is 8.6, platelets are 78,000. Rest of the labs were unremarkable. Objective - Vital Signs Vital signs: Vital Signs Temp 98 F 01/29/19 08:00 Pulse 71 01/29/19 11:11 Resp 12 01/29/19 10:00 BP 120/64 01/29/19 10:00 Pulse Ox 98 01/29/19 10:00 Intake & Output 01/28/19 01/29/19 01/29/19 18:59 06:59 18:59 Intake Total 1186.303 440.678 95.963 Output Total 673 447 330 Balance 513.303 -6.322 -234.037 Weight 81.6 kg 88.4 kg Intake: IV 540 306 92 0.9 Pressure Bag 66 12 Albumin Human 5% 250 ml 250 In Empty Bag 1 bag @ 250 mls/hr IVPB Q1HR PRN Rx#: [id number] CO/CI 20 LR 270 240 80 Intake, IV Titration 26.303 34.678 3.963 Amount Insulin Regular 100 unit 26.303 34.678 3.963 In Sodium Chloride 0.9% 100 ml @ Per Protocol IV .Q0M [facility] Rx#:[id number] Oral 620 100 Output: Chest Tube Drainage 138 50 200 Left Pleural 32 10 170 Mediastinal 60 Right Pleural 46 40 30 Drainage 50 30 80 Left Leg DANIELA 50 30 80 Urine 485 367 50 Other: Voiding Method Indwelling Catheter Indwelling Catheter ABP, PAP, CO, CI - Last Documented Arterial Blood Pressure 103/40 Pulmonary Artery Pressure 22/12 Cardiac Output 4.6 Cardiac Index 2.3 - Exam Physical Exam: Revealed 78-year-old female in no distress. On 2 L nasal cannula, O2 sat is 98%. Head: Atraumatic, normocephalic. HEENT:[Neck is supple.] [No neck masses.] [No thyromegaly.] [No JVD.] Chest: [Diminished breath sounds at the bases, nonlabored breathing is noted. Left and right pleural chest tubes were both noted Cardiac Exam: [Normal S1 and S2, no S3 gallop, no murmur.] Abdomen: [Soft, nontender, no megaly, no rebound, no guarding, normal bowel sounds.] Extremities: [No clubbing, no edema, no cyanosis.] Good pulses bilaterally. Neurological Exam: [No focal neurologic deficit.] Alert and oriented 3. Lymphatics: No lymphadenopathy. Skin: No rashes. - Labs CBC & Chem 7: 01/29/19 05:10 01/29/19 05:10 Labs: Abnormal Lab Results - Last 24 Hours (Table) 01/28/19 01/28/19 01/28/19 Range/Units 11:08 11:57 13:13 RBC (3.80-5.40) m/uL Hgb (11.4-16.0) gm/dL Hct (34.0-46.0) % Plt Count (150-450) k/uL Neutrophils # (1.3-7.7) k/uL Lymphocytes # (1.0-4.8) k/uL BUN (7-17) mg/dL Glucose (74-99) mg/dL POC Glucose (mg/dL) 137 H 156 H 167 H (75-99) mg/dL AST (14-36) U/L Alkaline Phosphatase (38-126) U/L Total Protein (6.3-8.2) g/dL Albumin (3.5-5.0) g/dL 01/28/19 01/28/19 01/28/19 Range/Units 13:59 16:24 17:18 RBC (3.80-5.40) m/uL Hgb (11.4-16.0) gm/dL Hct (34.0-46.0) % Plt Count (150-450) k/uL Neutrophils # (1.3-7.7) k/uL Lymphocytes # (1.0-4.8) k/uL BUN (7-17) mg/dL Glucose (74-99) mg/dL POC Glucose (mg/dL) 155 H 127 H 113 H (75-99) mg/dL AST (14-36) U/L Alkaline Phosphatase (38-126) U/L Total Protein (6.3-8.2) g/dL Albumin (3.5-5.0) g/dL 01/28/19 01/28/19 01/28/19 Range/Units 18:06 19:04 19:59 RBC (3.80-5.40) m/uL Hgb (11.4-16.0) gm/dL Hct (34.0-46.0) % Plt Count (150-450) k/uL Neutrophils # (1.3-7.7) k/uL Lymphocytes # (1.0-4.8) k/uL BUN (7-17) mg/dL Glucose (74-99) mg/dL POC Glucose (mg/dL) 145 H 173 H 169 H (75-99) mg/dL AST (14-36) U/L Alkaline Phosphatase (38-126) U/L Total Protein (6.3-8.2) g/dL Albumin (3.5-5.0) g/dL 01/28/19 01/28/19 01/29/19 Range/Units 21:07 23:56 01:02 RBC (3.80-5.40) m/uL Hgb (11.4-16.0) gm/dL Hct (34.0-46.0) % Plt Count (150-450) k/uL Neutrophils # (1.3-7.7) k/uL Lymphocytes # (1.0-4.8) k/uL BUN (7-17) mg/dL Glucose (74-99) mg/dL POC Glucose (mg/dL) 151 H 160 H 160 H (75-99) mg/dL AST (14-36) U/L Alkaline Phosphatase (38-126) U/L Total Protein (6.3-8.2) g/dL Albumin (3.5-5.0) g/dL 01/29/19 01/29/19 01/29/19 Range/Units 01:47 02:54 05:08 RBC (3.80-5.40) m/uL Hgb (11.4-16.0) gm/dL Hct (34.0-46.0) % Plt Count (150-450) k/uL Neutrophils # (1.3-7.7) k/uL Lymphocytes # (1.0-4.8) k/uL BUN (7-17) mg/dL Glucose (74-99) mg/dL POC Glucose (mg/dL) 153 H 151 H 160 H (75-99) mg/dL AST (14-36) U/L Alkaline Phosphatase (38-126) U/L Total Protein (6.3-8.2) g/dL Albumin (3.5-5.0) g/dL 01/29/19 01/29/19 01/29/19 Range/Units 05:10 05:10 05:59 RBC 2.86 L (3.80-5.40) m/uL Hgb 8.6 L (11.4-16.0) gm/dL Hct 24.1 L (34.0-46.0) % Plt Count 78 L (150-450) k/uL Neutrophils # 8.6 H (1.3-7.7) k/uL Lymphocytes # 0.9 L (1.0-4.8) k/uL BUN 20 H (7-17) mg/dL Glucose 139 H (74-99) mg/dL POC Glucose (mg/dL) 146 H (75-99) mg/dL AST 40 H (14-36) U/L Alkaline Phosphatase 35 L (38-126) U/L Total Protein 4.9 L (6.3-8.2) g/dL Albumin 3.1 L (3.5-5.0) g/dL 01/29/19 01/29/19 01/29/19 Range/Units 07:00 08:20 08:55 RBC (3.80-5.40) m/uL Hgb (11.4-16.0) gm/dL Hct (34.0-46.0) % Plt Count (150-450) k/uL Neutrophils # (1.3-7.7) k/uL Lymphocytes # (1.0-4.8) k/uL BUN (7-17) mg/dL Glucose (74-99) mg/dL POC Glucose (mg/dL) 149 H 166 H 164 H (75-99) mg/dL AST (14-36) U/L Alkaline Phosphatase (38-126) U/L Total Protein (6.3-8.2) g/dL Albumin (3.5-5.0) g/dL Assessment and Plan Assessment: Impression: 1 status post CABG/three-vessel, postoperative day #2 2 type 2 diabetes. On insulin as per protocol. 3 history of Graves' disease 4 ex-smoker, mild COPD FEV1 of 75% on bronchodilators. 5 strong family history of premature coronary artery disease 6 obesity 7 benign essential hypertension Recommendation: continue beta blockers, Plavix, statin, aspirin, continue to wean O2 as tolerated, increase activity, continue incentive spirometry, continue bronchodilators, continue to monitor daily x-rays, continue pain control, discontinue unnecessary lines and catheters, we'll continue to follow. Time with Patient: Less than 30
[2019-01-29 12:13] LABS: Glucose,Whole Blood 177 mg/dL (75-99)
[2019-01-29] MEDS: INSULIN ASPART (NovoLOG) 100 UNIT/ML VIAL SQ SCH ×3 (12:30→21:19)
[2019-01-29 17:12] LABS: Glucose,Whole Blood 202 mg/dL (75-99)
[2019-01-29] MEDS: LACTATED RINGERS 1,000 ML IV SCH (19:58)
[2019-01-29] MEDS: SENNOSIDES-DOCUSATE SODIUM 1 EACH TAB PO SCH (20:19)
[2019-01-29 21:19] LABS: Glucose,Whole Blood 224 mg/dL (75-99)
[2019-01-30] MEDS: HYDROcodone/APAP 5-325MG 1 EACH TAB PO PRN ×4 (00:49→23:18)
[2019-01-30] MEDS: PANTOPRAZOLE 40 MG TABLET PO SCH (06:29)
[2019-01-30 06:47] LABS: Glucose,Whole Blood 201 mg/dL (75-99)
[2019-01-30] MEDS: INSULIN ASPART (NovoLOG) 100 UNIT/ML VIAL SQ SCH ×4 (06:47→20:20)
[2019-01-30] MEDS: IPRATROPIUM-ALBUTEROL 3 ML NEB INHALATION SCH ×4 (07:34→18:58)
--- NOTE | 2019-01-30 07:34 | XR ---
EXAMINATION TYPE: XR chest 2V DATE OF EXAM: 01/30/2019 COMPARISON: 01/29/2019 INDICATION: Post CABG TECHNIQUE: Frontal and lateral views of the chest are obtained. FINDINGS: The heart size is normal. The pulmonary vasculature is normal. The lungs are clear. Sternotomy wires are present from prior CABG. The left-sided chest tube is been removed. A small pleural effusion or atelectasis at the left costophrenic angle. Right-sided chest t ube is been removed. Some minimal fluid is suspected at the right base. No pneumothorax is evident. IMPRESSION: 1. Small bilateral pleural effusions and/or atelectasis post bilateral chest tube removal.
[2019-01-30] MEDS: METOPROLOL TARTRATE 12.5 MG TAB PO SCH ×2 (08:31→20:18)
[2019-01-30] MEDS: MULTIVITAMINS, THERA 1 EACH TAB PO SCH (08:31)
[2019-01-30] MEDS: CHOLECALCIFEROL 1,000 UNIT TAB PO SCH (08:31)
[2019-01-30] MEDS: HEPARIN SODIUM,PORCINE 5,000 UNIT/ML 1 ML VIAL SQ SCH ×3 (08:31→23:18)
[2019-01-30] MEDS: ASPIRIN 325 MG TAB PO SCH (08:32)
[2019-01-30] MEDS: CLOPIDOGREL 75 MG TAB PO SCH (08:32)
[2019-01-30] MEDS: ATORVASTATIN 40 MG TAB PO SCH (08:32)
--- NOTE | 2019-01-30 09:16 | P.PN ---
Subjective Progress Note Date: 01/30/19 This is a 78-year-old female patient who presented for triple bypass coronary artery bypass graft surgery with Dr. Johnson on 01/27/2019. Patient recently underwent cardiac catheterization in which showed in-stent stenosis as well as a LAD disease involving the takeoff of a large diagonal artery. Patient has a known past medical history of coronary artery disease with stent of the RCA last year, diabetes mellitus, hyperlipidemia, hypertension, osteoarthritis, Graves' disease and ex-smoker. Patient is currently postop day 1. Patient has been extubated per protocol. Patient is currently sitting up in chair. Patient stresses that she is having some increased discomfort. Patient remains on insul in drip. Discussed with cardiothoracic team plans to remove mediastinal chest tube and [place] today. Incentive spirometer encouraged. On 01/29/2019 patient is alert and oriented 3. Patient feels improved from yesterday. Insulin drip to be DC'd and transitioned before meals and at bedtime insulin. Chest tubes to be removed prior cardiothoracic surgery. Patient denies any shortness of breath. Patient denies nausea vomiting or diarrhea. Patient denies any urinary burning or frequency. 01/30/2018 patient is alert and oriented 3. Patient is feeling improved. Patient has been moved out of intensive care unit. Chest tubes removed. At this time patient denies chest pain or shortness of breath. Patient denies nausea vomiting or diarrhea. Patient denies any urinary burning or frequency. Dulcolax suppository ordered for constipation. Objective - Vital Signs Vital signs: Vital Signs Temp 98.2 F 01/30/19 04:00 Pulse 76 01/30/19 07:46 Resp 18 01/30/19 04:00 BP 117/58 01/30/19 04:00 Pulse Ox 97 01/30/19 07:36 Intake & Output 01/29/19 01/30/19 01/30/19 18:59 06:59 18:59 Intake Total 195.963 10 Output Total 1110 70 Balance -914.037 -60 Weight 90.5 kg Intake: IV 192 10 0.9 10 0.9 Pressure Bag 12 LR 180 Intake, IV Titration 3.963 Amount Insulin Regular 100 unit 3.963 In Sodium Chloride 0.9% 100 ml @ Per Protocol IV .Q0M [facility] Rx#:[id number] Output: Chest Tube Drainage 200 Left Pleural 170 Right Pleural 30 Drainage 110 70 Left Leg DANIELA 110 70 Urine 800 Other: Voiding Method Indwelling Catheter Toilet # Voids 1 ABP, PAP, CO, CI - Last Documented Arterial Blood Pressure 103/40 Pulmonary Artery Pressure 22/12 Cardiac Output 4.6 Cardiac Index 2.3 - Exam Head normocephalic Neck supple Lungs clear to auscultation bilaterally no wheezing or crackles Heart regular rate and rhythm S1-S2, no rub or gallop Abdomen is soft nontender nondistended positive bowel sounds no hep atosplenomegaly Extremities no edema Neuro alert and orientated to 3 Sternal dressing clean dry and intact heart hugger in place - Labs CBC & Chem 7: 01/29/19 05:10 01/29/19 05:10 Labs: Abnormal Lab Results - Last 24 Hours (Table) 01/29/19 01/29/19 01/29/19 Range/Units 12:01 17:00 21:17 POC Glucose (mg/dL) 177 H 202 H 224 H (75-99) mg/dL 01/30/19 Range/Units 06:39 POC Glucose (mg/dL) 201 H (75-99) mg/dL Assessment and Plan Assessment: 1. Status post coronary artery bypass graft surgery triple-vessel. Patient is currently postop day 3. Patient has been estimated per protocol. Critical care services are following 2. Coronary artery disease with previous stents to RCA 3. History of Graves' disease. 4. Ex-smoker 5. Diabetes mellitus. Hemoglobin A1c 7.6 on 01/16/2019. Insulin drip to be DC'd transition to ac/hs insulin 6. History of essential hypertension 7. History of osteoarthritis 8. History of hyperlipidemia 9. Constipation. Dulcolax suppository has been ordered 10. Acute postoperative blood loss anemia expected. DVT prophylaxis heparin. GI prophylaxis Protonix Thank you for this consultation we'll continue to follow patient closely throughout stay Patient has been moved out of the intensive care unit Planning to be DC'd home when cleared I performed an examination of the patient and discussed their management with the Nurse Practitioner. I have reviewed the Nurse Practitioner's notes and agree with the documented findings and plan of care
[2019-01-30 09:26] LABS: Calcium 8.4 mg/dL (8.4-10.2); Potassium 3.8 mmol/L (3.5-5.1)
--- NOTE | 2019-01-30 10:17 | P.PN ---
Subjective Progress Note Date: 01/30/19 Principal diagnosis: Coronary artery disease with previous stenting to the RCA in April 2018, preserved left ventricular function, obesity, hypertension, hyperlipidemia, diabetes with preoperative hemoglobin A1c 7.6%, history of Graves' disease, previous tobacco dependence, mild COPD with preoperative FEV1 75% of predicted, atrial fibrillation on presentation the morning of surgery, family history of premature coronary artery disease. POD #3 triple vessel coronary artery bypass grafting using the left internal mammary artery to the left anterior descending artery, reverse saphenous vein graft from the aorta to the first diagonal artery, reverse saphenous vein graft from the aorta to the right coronary artery. Bilateral pulmonary vein isolation using bipolar radiofrequency clamp. Exclusion of the left atrial appendage using 45 mm AtriClip. Left greater saphenous vein endoscopic harvesting from the groin to above the ankle level. Intraoperative transesophageal echocardiogram and epi-aortic scanning. Postoperative acute blood loss anemia, an expected outcome secondary to cardiopulmonary bypass pump and hemodilution. The patient currently sitting up in a recliner on the cardiac stepdown unit in no acute distress. She states pain is well controlled on current medication regimen, denies shortness of breath. Remains in normal sinus rhythm, hemodynamically stable. No new complaints. Objective - Vital Signs Vital signs: Vital Signs Temp 98.2 F 01/30/19 04:00 Pulse 76 01/30/19 07:46 Resp 18 01/30/19 04:00 BP 117/58 01/30/19 04:00 Pulse Ox 97 01/30/19 07:36 Intake & Output 01/29/19 01/30/19 01/30/19 18:59 06:59 18:59 Intake Total 195.963 10 Output Total 1110 70 Balance -914.037 -60 Weight 90.5 kg Intake: IV 192 10 0.9 10 0.9 Pressure Bag 12 LR 180 Intake, IV Titration 3.963 Amount Insulin Regular 100 unit 3.963 In Sodium Chloride 0.9% 100 ml @ Per Protocol IV .Q0M [facility] Rx#:[id number] Output: Chest Tube Drainage 200 Left Pleural 170 Right Pleural 30 Drainage 110 70 Left Leg DANIELA 110 70 Urine 800 Other: Voiding Method Indwelling Catheter Toilet # Voids 1 ABP, PAP, CO, CI - Last Documented Arterial Blood Pressure 103/40 Pulmonary Artery Pressure 22/12 Cardiac Output 4.6 Cardiac Index 2.3 - Constitutional General appearance: Present: cooperative, no acute distress, obese - Respiratory Details: Lungs sounds diminished bilaterally. Respirations even, nonlabored. Currently on 3 L nasal cannula with oxygen saturation 97%. Able to achieve 1000 mL on her incentive spirometry. Strong cough. - Cardiovascular Details: S1, S2 present. Regular rate and rhythm, sinus rhythm on telemetry. Sternum stable. Atrial epicardial pacemaker wires present, grounded. Palpable peripheral pulses bilaterally. Trace bilateral lower extremity edema present. No calf pain or tenderness noted. Heart hugger in place with patient demonstrating appropriate use. Antiembolism stockings, SCDs present. - Gastrointestinal Gastrointestinal Comment(s): Abdomen soft, nontender, nondistended. Active bowel sounds present 4 quadrants. Tolerating diet. Positive flatus, negative bowel movement. - Genitourinary Genitourinary Comment(s): Patient continues to void clear, yellow urine. - Integumentary Integumentary Comment(s): Skin is warm and dry with evidence of good perfusion. Anterior chest incision well approximated and covered with dry intact dressing. Left lower extremity EVH site well approximated, DANIELA drain present with serosanguineous drainage. - Neurologic Neurologic: Present: CNII-XII intact - Musculoskeletal Musculoskeletal: Present: gait normal, strength equal bilaterally - Psychiatric Psychiatric: Present: A&O x's 3, appropriate affect, intact judgment & insight - Allied health notes Allied health notes reviewed: nursing - Labs CBC & Chem 7: 01/29/19 05:10 01/30/19 07:59 Labs: Abnormal Lab Results - Last 24 Hours (Table) 01/29/19 01/29/19 01/29/19 Range/Units 12:01 17:00 21:17 BUN (7-17) mg/dL Glucose (74-99) mg/dL POC Glucose (mg/dL) 177 H 202 H 224 H (75-99) mg/dL 01/30/19 01/30/19 Range/Units 06:39 07:59 BUN 23 H (7-17) mg/dL Glucose 213 H (74-99) mg/dL POC Glucose (mg/dL) 201 H (75-99) mg/dL - Imaging and Cardiology Chest x-ray: report reviewed, image reviewed Assessment and Plan Assessment: 1. Coronary artery disease with previous stenting to the RCA in April 2018, status post three-vessel CABG 2. Preserved left ventricular function 3. Obesity 4. Hypertension 5. Hyperlipidemia 6. Diabetes with preoperative hemoglobin A1c 7.6% 7. History of Graves' disease 8. Previous tobacco dependence 9. Mild COPD with preoperative FEV1 75% of predicted 10. Preoperative atrial fibrillation, present the morning of surgery, status post bilateral pulmonary vein isolation and exclusion of the left atrial appendage 11. Family history of premature coronary artery disease 12. Postoperative acute blood loss anemia, expected Plan: 1. Continue aspirin, statin, Plavix, beta reagan therapy. Will increase beta reagan therapy as tolerated. 2. Wean O2 as tolerated. Encourage incentive spirometry is 10 times every hour while awake 3. Increase activity, ambulate as tolerated. PT/OT/cardiac rehab following. 4. Bronchodilators per pulmonology. 5. Will monitor daily labs and x-rays. Electrolyte replacement per protocol. No transfusion. 6. Pain control with current medication regimen. 7. Insulin management per her care services. 8. GI/DVT prophylaxis. 9. Discharge planning in progress. Anticipate discharge to home with home care in the next 24-48 hours. 10. More recommendations to follow based on patient's progress. Time with Patient: Greater than 30
--- NOTE | 2019-01-30 10:34 | P.PN ---
Subjective Progress Note Date: 01/30/19 Principal diagnosis: Coronary artery bypass grafting, postoperative day 3 Patient was reevaluated today on 01/29/2019, patient is postoperative day #2, triple vessel coronary artery bypass, SANDOVAL to LAD, RSV to first diagonal, RSV to RCA. Patient was extubated yesterday uneventfully, and she is doing great today. She has mostly pain, and I recommended Dilaudid 0.5 mg IV push 1 for her severe pain mostly chest wall pain. And the pain is also at the site of the chest tubes insertions. This will be removed shortly. Patient is not requiring any pressors or inotropes. She is alert oriented 3, denies any shortness of breath. Hemoglobin is 8.6, platelets are 78,000. Rest of the labs were unremarkable. On 01/30/2019 patient seen in follow-up on selective care unit. She is awake and alert, she is sitting up in the recliner, in no acute distress, she denies any shortness of breath, currently on 3 L of oxygen pulse ox of 97%, afebrile, hemodynamically stable. Today's chest x-ray shows small bilateral pleural effusions and/or atelectasis. Chest tubes have been discontinued. Yesterday patient received dose of Lasix her CT surgery, she diuresed, she is in -974 mL fluid balance over the last 24 hours, does reveal basilar crackles 1+ lower extremity edema. Today's labs have been reviewed, showing electrolytes within normal limits, BUN of 23 and creatinine of 0.82, dissipate another dose of IV Lasix by CT surgery Objective - Vital Signs Vital signs: Vital Signs Temp 98.2 F 01/30/19 04:00 Pulse 76 01/30/19 07:46 Resp 18 01/30/19 04:00 BP 117/58 01/30/19 04:00 Pulse Ox 97 01/30/19 07:36 Intake & Output 01/29/19 01/30/19 01/30/19 18:59 06:59 18:59 Intake Total 195.963 10 Output Total 1110 70 Balance -914.037 -60 Weight 90.5 kg Intake: IV 192 10 0.9 10 0.9 Pressure Bag 12 LR 180 Intake, IV Titration 3.963 Amount Insulin Regular 100 unit 3.963 In Sodium Chloride 0.9% 100 ml @ Per Protocol IV .Q0M [facility] Rx#:[id number] Output: Chest Tube Drainage 200 Left Pleural 170 Right Pleural 30 Drainage 110 70 Left Leg DANIELA 110 70 Urine 800 Other: Voiding Method Indwelling Catheter Toilet # Voids 1 ABP, PAP, CO, CI - Last Documented Arterial Blood Pressure 103/40 Pulmonary Artery Pressure 22/12 Cardiac Output 4.6 Cardiac Index 2.3 - Exam GENERAL EXAM: Alert, pleasant, 78-year-old white female, on 3 L of oxygen with a pulse ox of 97% sat up in the recliner comfortable in no apparent distress. HEAD: Normocephalic/atraumatic. EYES: Normal reaction of pupils, equal size. Conjunctiva pink, sclera white. NOSE: Clear with pink turbinates. THROAT: No erythema or exudates. NECK: No masses, no JVD, no thyroid enlargement, no adenopathy. CHEST: No chest wall deformity. Symmetrical expansion. Midsternal incision is clean dry and intact, covered with a dressing, tube sites are clean dry and intact LUNGS: Equal air entry with bibasilar crackles, but no wheeze, rhonchi or dullness. CVS: Regular rate and rhythm, normal S1 and S2, no gallops, no murmurs, no rubs ABDOMEN: Soft, nontender. No hepatosplenomegaly, normal bowel sounds, no guarding or rigidity. EXTREMITIES: No clubbing, 1+ edema, no cyanosis, 2+ pulses and upper and lower extremities. Left lower extremity DANIELA drain being removed this morning, incisions clean dry and intact MUSCULOSKELETAL: Muscle strength and tone normal. SPINE: No scoliosis or deformity SKIN: No rashes CENTRAL NERVOUS SYSTEM: Alert and oriented -3. No focal deficits, tone is normal in all 4 extremities. PSYCHIATRIC: Alert and oriented -3. Appropriate affect. Intact judgment and insight. - Labs CBC & Chem 7: 01/29/19 05:10 01/30/19 07:59 Labs: Abnormal Lab Results - Last 24 Hours (Table) 01/29/19 01/29/19 01/29/19 Range/Units 12:01 17:00 21:17 BUN (7-17) mg/dL Glucose (74-99) mg/dL POC Glucose (mg/dL) 177 H 202 H 224 H (75-99) mg/dL 01/30/19 01/30/19 Range/Units 06:39 07:59 BUN 23 H (7-17) mg/dL Glucose 213 H (74-99) mg/dL POC Glucose (mg/dL) 201 H (75-99) mg/dL Assessment and Plan Plan: Assessment: 1 status post CABG/three-vessel, postoperative day #3 2 type 2 diabetes. On insulin as per protocol. 3 history of Graves' disease 4 ex-smoker, mild COPD FEV1 of 75% on bronchodilators. 5 strong family history of premature coronary artery disease 6 obesity 7 benign essential hypertension Plan: Continue with current plan of treatment, anticipate on that dose of Lasix per CT surgery, wean FiO2, encourage deep breathing and coughing, ambulation. Continue bronchodilators. Today's chest x-ray showing bilateral pleural effusions, atelectasis. Discharge is anticipated in another 24 hours I performed a history & physical examination of the patient and discussed their management with my nurse practitioner, Valentine Ferrer. I reviewed the nurse practitioner's note and agree with the documented findings and plan of care. Lung sounds are positive for basilar crackles. The findings and the impression was discussed with the patient. I attest to the documentation by the nurse practitioner. Time with Patient: Less than 30
[2019-01-30] MEDS ORDERED: FUROSEMIDE 10 MG/ML 2 ML VIAL IV STA (11:38)
[2019-01-30 11:44] LABS: HCT 24.7 % (34.0-46.0); HGB 8.5 gm/dL (11.4-16.0); MCHC 34.4 g/dL (31.0-37.0); MCV 87.2 fL (80.0-100.0); Mean Platelet Volume 8.6; RBC 2.83 m/uL (3.80-5.40); RDW 14.7 % (11.5-15.5); WBC 9.1 k/uL (3.8-10.6)
--- NOTE | 2019-01-30 11:52 | P.PN ---
Subjective Progress Note Date: 01/30/19 This is a 78 year old female who is status post coronary bypass grafting surgery, seen and examined on the cardiac unit. Up in the chair, states that she slept in the chair last night because of that was uncomfortable. Blood pressure 100/60 with a heart rate in 80s, 95% on 2 L of oxygen. Sodium 140, potassium 3.8, BUN 23 and creatinine 0.8. Objective - Vital Signs Vital signs: Vital Signs Temp 98.1 F 01/30/19 08:00 Pulse 76 01/30/19 11:14 Resp 20 01/30/19 08:00 BP 101/63 01/30/19 08:00 Pulse Ox 95 01/30/19 08:00 Intake & Output 01/29/19 01/30/19 01/30/19 18:59 06:59 18:59 Intake Total 195.963 10 Output Total 1110 70 Balance -914.037 -60 Weight 90.5 kg Intake: IV 192 10 0.9 10 0.9 Pressure Bag 12 LR 180 Intake, IV Titration 3.963 Amount Insulin Regular 100 unit 3.963 In Sodium Chloride 0.9% 100 ml @ Per Protocol IV .Q0M [facility] Rx#:[id number] Output: Chest Tube Drainage 200 Left Pleural 170 Right Pleural 30 Drainage 110 70 Left Leg DANIELA 110 70 Urine 800 Other: Voiding Method Indwelling Catheter Toilet # Voids 1 ABP, PAP, CO, CI - Last Documented Arterial Blood Pressure 103/40 Pulmonary Artery Pressure 22/12 Cardiac Output 4.6 Cardiac Index 2.3 - Exam GENERAL EXAM: Alert, pleasant, 78-year-old white female, on 3 L of oxygen with a pulse ox of 97% sat up in the recliner comfortable in no apparent distress. HEAD: Normocephalic/atraumatic. EYES: Normal reaction of pupils, equal size. Conjunctiva pink, sclera white. NOSE: Clear with pink turbinates. THROAT: No erythema or exudates. NECK: No masses, no JVD, no thyroid enlargement, no adenopathy. CHEST: No chest wall deformity. Symmetrical expansion. Midsternal incision is clean dry and intact, covered with a dressing, tube sites are clean dry and intact LUNGS: Equal air entry with bibasilar crackles, but no wheeze, rhonchi or dullness. CVS: Regular rate and rhythm, normal S1 and S2, no gallops, no murmurs, no rubs ABDOMEN: Soft, nontender. No hepatosplenomegaly, normal bowel sounds, no guarding or rigidity. EXTREMITIES: No clubbing, 1+ edema, no cyanosis, 2+ pulses and upper and lower extremities. Left lower extremity DANIELA drain being removed this morning, incisions clean dry and intact MUSCULOSKELETAL: Muscle strength and tone normal. SPINE: No scoliosis or deformity SKIN: No rashes CENTRAL NERVOUS SYSTEM: Alert and oriented -3. No focal deficits, tone is normal in all 4 extremities. PSYCHIATRIC: Alert and oriented -3. Appropriate affect. Intact judgment and insight. - Labs CBC & Chem 7: 01/29/19 05:10 01/30/19 07:59 Labs: Abnormal Lab Results - Last 24 Hours (Table) 01/29/19 01/29/19 01/29/19 Range/Units 12:01 17:00 21:17 BUN (7-17) mg/dL Glucose (74-99) mg/dL POC Glucose (mg/dL) 177 H 202 H 224 H (75-99) mg/dL 01/30/19 01/30/19 Range/Units 06:39 07:59 BUN 23 H (7-17) mg/dL Glucose 213 H (74-99) mg/dL POC Glucose (mg/dL) 201 H (75-99) mg/dL Assessment and Plan Plan: Assessment and plan: #1 1 status post CABG/three-vessel, postoperative day #3 #2 type 2 diabetes. On insulin as per protocol. #3 history of Graves' disease #4 ex-smoker, mild COPD FEV1 of 75% on bronchodilators. #5 strong family history of premature coronary artery disease #6 obesity #7 benign essential hypertension Plan From cardiology's perspective, we'll recommend the patient continue with current medications. She's been encouraged regarding the use of her incentive spirometer. DNP note has been reviewed, I agree with a documented findings and plan of care. Patient was seen and examined.
[2019-01-30 11:54] LABS: Platelet Count 95 k/uL (150-450)
[2019-01-30 12:01] LABS: Glucose,Whole Blood 155 mg/dL (75-99)
[2019-01-30 16:57] LABS: Glucose,Whole Blood 149 mg/dL (75-99)
[2019-01-30] MEDS: metFORMIN 500 MG TAB PO SCH (17:25)
[2019-01-30 20:15] LABS: Glucose,Whole Blood 153 mg/dL (75-99)
[2019-01-30] MEDS: SENNOSIDES-DOCUSATE SODIUM 1 EACH TAB PO SCH (20:22)
[2019-01-31 06:28] LABS: Basophils % (A) 0 %; Eosinophils # (A) 0.1 k/uL (0-0.7); Eosinophils % (A) 1 %; HCT 23.8 % (34.0-46.0); HGB 8.4 gm/dL (11.4-16.0); Lymphocytes # (A) 1.3 k/uL (1.0-4.8); Lymphocytes % (A) 18 %; MCH 30.5 pg (25.0-35.0); MCHC 35.4 g/dL (31.0-37.0); MCV 86.1 fL (80.0-100.0); Mean Platelet Volume 8.4; Monocytes # (A) 0.4 k/uL (0-1.0); Monocytes % (A) 5 %; Neutrophils # (A) 5.3 k/uL (1.3-7.7); Neutrophils % (A) 74 %; Platelet Count 129 k/uL (150-450); RBC 2.76 m/uL (3.80-5.40); RDW 15.4 % (11.5-15.5); WBC 7.1 k/uL (3.8-10.6)
[2019-01-31 06:30] LABS: Glucose,Whole Blood 161 mg/dL (75-99)
[2019-01-31] MEDS: PANTOPRAZOLE 40 MG TABLET PO SCH (06:37)
[2019-01-31] MEDS: metFORMIN 500 MG TAB PO SCH (06:40)
[2019-01-31] MEDS: INSULIN ASPART (NovoLOG) 100 UNIT/ML VIAL SQ SCH ×2 (06:40→13:07)
[2019-01-31 06:54] LABS: ALT 29 U/L (9-52); AST 34 U/L (14-36); African American GFR (CKD) >90 (>60 ml/min/1.73 sqM); Albumin 3.1 g/dL (3.5-5.0); Alkaline Phosphatase 58 U/L (38-126); Anion Gap 6 mmol/L; Blood Urea Nitrogen 25 mg/dL (7-17); Calcium 8.4 mg/dL (8.4-10.2); Carbon Dioxide 27 mmol/L (22-30); Chloride 106 mmol/L (98-107); Glucose 145 mg/dL (74-99); Potassium 3.5 mmol/L (3.5-5.1); Sodium 139 mmol/L (137-145); Total Protein 5.2 g/dL (6.3-8.2)
--- NOTE | 2019-01-31 07:18 | XR ---
EXAMINATION TYPE: XR chest 2V DATE OF EXAM: 01/31/2019 COMPARISON: Chest x-ray from yesterday. HISTORY: Status post open cardiac surgery TECHNIQUE: Frontal and lateral views of the chest are obtained. FINDINGS: Overlying sternal wires and mediastinal clips are redemonstrated. Cardiac closure device l eft exterior aspect redemonstrated. There are persistent small bilateral pleural effusions with eleva pamela left hemidiaphragm. There is persistent cardiomegaly with atherosclerotic thoracic aorta. There i s patchy left basilar atelectasis and/or infiltrate. Osseous structures are intact. IMPRESSION: Overall stable findings, cardiomegaly with small bilateral pleural effusions and associa pamela left basilar atelectasis and/or infiltrate all are redemonstrated.
[2019-01-31] MEDS ORDERED: FUROSEMIDE 10 MG/ML 2 ML VIAL IV STA (07:42)
[2019-01-31] MEDS ORDERED: HYDROcodone/APAP 5-325MG 1 EACH TAB PO PRN (07:42)
--- NOTE | 2019-01-31 07:50 | P.PN ---
Subjective Progress Note Date: 01/31/19 Principal diagnosis: Coronary artery disease with previous stenting to the RCA in April 2018, preserved left ventricular function, obesity, hypertension, hyperlipidemia, diabetes with preoperative hemoglobin A1c 7.6%, history of Graves' disease, previous tobacco dependence, mild COPD with preoperative FEV1 75% of predicted, atrial fibrillation on presentation the morning of surgery, family history of premature coronary artery disease. POD #4 triple vessel coronary artery bypass grafting using the left internal mammary artery to the left anterior descending artery, reverse saphenous vein graft from the aorta to the first diagonal artery, reverse saphenous vein graft from the aorta to the right coronary artery. Bilateral pulmonary vein isolation using bipolar radiofrequency clamp. Exclusion of the left atrial appendage using 45 mm AtriClip. Left greater saphenous vein endoscopic harvesting from the groin to above the ankle level. Intraoperative transesophageal echocardiogram and epi-aortic scanning. Postoperative acute blood loss anemia, an expected outcome secondary to cardiopulmonary bypass pump and hemodilution. The patient currently sitting up in a recliner on the cardiac stepdown unit in no acute distress. Remains in normal sinus rhythm, hemodynamically stable. She states pain is controlled on current medication regimen, denies shortness of thalia ath. Complains that she is gagging on breakfast this morning, not choking or coughing. Also complains that she is not able to tolerate added metformin as it has given her significant diarrhea in the past. Objective - Vital Signs Vital signs: Vital Signs Temp 98.1 F 01/31/19 03:21 Pulse 85 01/31/19 03:22 Resp 19 01/31/19 03:22 BP 115/58 01/31/19 03:21 Pulse Ox 93 L 01/31/19 03:21 Intake & Output 01/30/19 01/31/19 01/31/19 18:59 06:59 18:59 Intake Total 462 800 Output Total 30 Balance 462 770 Weight 91.4 kg Intake: Oral 462 800 Output: Drainage 30 Left Leg DANIELA 30 Other: Voiding Method Toilet # Voids 3 2 # Bowel Movements 2 ABP, PAP, CO, CI - Last Documented Arterial Blood Pressure 103/40 Pulmonary Artery Pressure 22/12 Cardiac Output 4.6 Cardiac Index 2.3 - Constitutional General appearance: Present: cooperative, no acute distress, obese - Respiratory Details: Lungs sounds diminished bilaterally. Respirations even, nonlabored. Currently on room air with oxygen saturation 93%. Able to achieve 750 mL on her incentive spirometry. Strong cough. - Cardiovascular Details: S1, S2 present. Regular rate and rhythm, sinus rhythm on telemetry. Sternum stable. Atrial epicardial pacemaker wires present, grounded. Palpable peripheral pulses bilaterally. Trace bilateral lower extremity edema present. No calf pain or tenderness noted. Heart hugger in place with patient demonstrating appropriate use. Antiembolism stockings, SCDs present. - Gastrointestinal Gastrointestinal Comment(s): Abdomen soft, nontender, nondistended. Active bowel sounds present 4 quadrants. Tolerating diet. Positive bowel movement. - Genitourinary Genitourinary Comment(s): Patient continues to void clear, yellow urine. - Integumentary Integumentary Comment(s): Skin is warm and dry with evidence of good perfusion. Anterior chest incision well approximated and covered with dry intact dressing. Left lower extremity EVH site well approximated. - Neurologic Neurologic: Present: CNII-XII intact - Musculoskeletal Musculoskeletal: Present: gait normal, strength equal bilaterally - Psychiatric Psychiatric: Present: A&O x's 3, appropriate affect, intact judgment & insight - Allied health notes Allied health notes reviewed: nursing - Labs CBC & Chem 7: 01/31/19 05:50 01/31/19 05:50 Labs: Abnormal Lab Results - Last 24 Hours (Table) 01/30/19 01/30/19 01/30/19 Range/Units 07:59 07:59 11:59 RBC 2.83 L (3.80-5.40) m/uL Hgb 8.5 L (11.4-16.0) gm/dL Hct 24.7 L (34.0-46.0) % Plt Count 95 L (150-450) k/uL BUN 23 H (7-17) mg/dL Glucose 213 H (74-99) mg/dL POC Glucose (mg/dL) 155 H (75-99) mg/dL Total Protein (6.3-8.2) g/dL Albumin (3.5-5.0) g/dL 01/30/19 01/30/19 01/31/19 Range/Units 16:56 20:13 05:50 RBC 2.76 L (3.80-5.40) m/uL Hgb 8.4 L (11.4-16.0) gm/dL Hct 23.8 L (34.0-46.0) % Plt Count 129 L (150-450) k/uL BUN (7-17) mg/dL Glucose (74-99) mg/dL POC Glucose (mg/dL) 149 H 153 H (75-99) mg/dL Total Protein (6.3-8.2) g/dL Albumin (3.5-5.0) g/dL 01/31/19 01/31/19 Range/Units 05:50 06:28 RBC (3.80-5.40) m/uL Hgb (11.4-16.0) gm/dL Hct (34.0-46.0) % Plt Count (150-450) k/uL BUN 25 H (7-17) mg/dL Glucose 145 H (74-99) mg/dL POC Glucose (mg/dL) 161 H (75-99) mg/dL Total Protein 5.2 L (6.3-8.2) g/dL Albumin 3.1 L (3.5-5.0) g/dL - Imaging and Cardiology Chest x-ray: report reviewed, image reviewed Assessment and Plan Assessment: 1. Coronary artery disease with previous stenting to the RCA in April 2018, status post three-vessel CABG 2. Preserved left ventricular function 3. Obesity 4. Hypertension 5. Hyperlipidemia 6. Diabetes with preoperative hemoglobin A1c 7.6% 7. History of Graves' disease 8. Previous tobacco dependence 9. Mild COPD with preoperative FEV1 75% of predicted 10. Preoperative atrial fibrillation, present the morning of surgery, status post bilateral pulmonary vein isolation and exclusion of the left atrial appendage 11. Family history of premature coronary artery disease 12. Postoperative acute blood loss anemia, expected Plan: 1. Continue aspirin, statin, Plavix, beta reagan therapy. Will increase beta reagan therapy as tolerated. 2. Encourage incentive spirometry is 10 times every hour while awake 3. Increase activity, ambulate as tolerated. PT/OT/cardiac rehab following. 4. Bronchodilators per pulmonology. 5. Will monitor daily labs and x-rays. Electrolyte replacement per protocol. No transfusion. 6. Pain control with current medication regimen. 7. Insulin management per her care services. Tradjenta and Glucophage added yesterday per primary care service. Patient is refusing Glucophage as she states it gives her significant diarrhea. Will discuss with internal medicine. 8. GI/DVT prophylaxis. 9. Discharge planning in progress. Anticipate discharge to home with home care later today versus tomorrow. 10. More recommendations to follow based on patient's progress. Time with Patient: Greater than 30
[2019-01-31] MEDS: IPRATROPIUM-ALBUTEROL 3 ML NEB INHALATION SCH ×2 (08:46→12:21)
[2019-01-31] MEDS ORDERED: METOPROLOL TARTRATE 25 MG TAB PO SCH (09:00)
[2019-01-31] MEDS ORDERED: LINAGLIPTIN 5 MG TABLET PO SCH (09:00)
[2019-01-31] MEDS: CLOPIDOGREL 75 MG TAB PO SCH (10:11)
[2019-01-31] MEDS: ATORVASTATIN 40 MG TAB PO SCH (10:11)
[2019-01-31] MEDS: ASPIRIN 325 MG TAB PO SCH (10:11)
[2019-01-31] MEDS: HEPARIN SODIUM,PORCINE 5,000 UNIT/ML 1 ML VIAL SQ SCH (10:11)
[2019-01-31] MEDS: CHOLECALCIFEROL 1,000 UNIT TAB PO SCH (10:11)
[2019-01-31] MEDS: MULTIVITAMINS, THERA 1 EACH TAB PO SCH ×2 (10:11→10:26)
[2019-01-31 11:19] VITALS: BP 120/57; RESP 16; TEMP 98.2
[2019-01-31 11:58] LABS: Glucose,Whole Blood 183 mg/dL (75-99)
--- NOTE | 2019-01-31 12:08 | P.DS ---
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 Coronary artery disease with previous stenting to the RCA in April 2018 2. Preserved left ventricular function 3. Obesity 4. Hypertension 5. Hyperlipidemia 6. Diabetes with preoperative hemoglobin A1c 7.6% 7. History of Graves' disease 8. Previous tobacco dependence 9. Mild COPD with preoperative FEV1 75% of predicted 10. Paroxysmal atrial fibrillation on presentation the morning of surgery 11. Family history of premature coronary artery disease 12. Postoperative acute blood loss anemia, expected PRINCIPAL PROCEDURE: 1. Triple-vessel coronary artery bypass grafting using the left internal mammary artery to the left anterior descending artery, reverse saphenous vein graft from the aorta to the first diagonal artery, reverse saphenous vein graft from the aorta to the right coronary artery 2. Bilateral pulmonary vein isolation using bipolar radiofrequency clamp 3. Exclusion of the left atrial appendage using a 45 mm AtriClip 4. Left greater saphenous vein endoscopic harvesting from the groin to above the ankle level 5. Intraoperative transesophageal echocardiogram 6. Epi-aortic scanning HISTORY OF PRESENT ILLNESS: This is a 78-year-old active female patient who follows with Dr. Yates on an outpatient basis. Apparently in April 2018 she had a positive stress test with symptoms of dyspnea on exertion without any chest pain. At that time she had a heart catheterization and received a stent to the right coronary artery. She had been recovering and doing well up until the middle of December of this year when she began to have similar symptoms. She again denied any chest pain, nausea/vomiting, weakness, dizziness, lower extremity edema, or any strokelike symptoms. She was again recommended to undergo heart catheterization and presented to [facility] for scheduled outpatient heart catheterization which demonstrated 95% ostial RCA stenosis with in-stent stenosis and 70% proximal LAD stenosis. Consultation was placed for Dr. Johnson from cardiothoracic surgery. She was recommended to undergo coronary artery bypass grafting surgery. The usual perioperative course was discussed in detail with the patient and her family, all risks and benefits were explained, all questions were answered, and consent was obtained to proceed with surgery. The patient was discharged to home on maximal medical therapy to return as an outpatient for surgery at the earliest possible date. HOSPITAL COURSE: The patient was brought to the hospital on 01/27/2019 and taken to the preoperative area where she was found to be in controlled atrial fibrillation which she previously had no history of. She was prepared in the usual fashion, and subsequently taken to the operating room where Dr. Johnson performed triple-vessel coronary artery bypass grafting using the left internal mammary artery to the left anterior descending artery, reverse saphenous vein graft from the aorta to the first diagonal artery, reverse saphenous vein graft from the aorta to the right coronary artery, bilateral pulmonary vein isolation using bipolar radiofrequency clamp, exclusion of the left atrial appendage using a 45 mm AtriClip, left greater saphenous vein endoscopic harvesting from the groin to above the ankle level, intraoperative transesophageal echocardiogram, and epi-aortic scanning. Upon completion of surgery the patient was transferred to the cardiovascular intensive care unit where she was recovered, monitored hemodynamically, and where she progressed to cardiac rehabilitation phase 1. She remained in normal sinus rhythm throughout the remainder of her hospital stay. She was extubated, all lines, tubes, and drips were discontinued when appropriate, and she was transferred to 3 S cardiac stepdown unit for further monitoring and rehabilitation. Her oxygen was titrated down, she continued to work with physical and occupational therapy, she was tolerating oral diet, her pain was controlled, and she was ready to be discharged to home with [facility] on postoperative day #4. She received written and verbal instruction regarding her medications, activity restrictions, signs and symptoms requiring physician notification, and follow-up appointments. COMPLICATIONS: The patient experienced no postoperative complications. Patient Condition at Discharge: Stable Plan - Discharge Summary Discharge Rx Participant: Yes New Discharge Prescriptions: New Linagliptin [Tradjenta] 5 mg PO DAILY 30 Days #30 tablet Aspirin 325 mg PO DAILY #30 tab Atorvastatin [Lipitor] 40 mg PO DAILY #30 tab Metoprolol Tartrate [Lopressor] 25 mg PO BID #60 tab HYDROcodone/APAP 5-325MG [Trent 5-325] 1 each PO Q6HR PRN #20 tab PRN Reason: Moderate Pain Pantoprazole [Protonix] 40 mg PO AC-BRKFST #30 tablet.dr Lee-Docusate Sodium [Senokot-S] 2 each PO HS PRN #14 tab PRN Reason: Constipation Acetaminophen Tab [Tylenol] 1,000 mg PO Q6HR PRN tab PRN Reason: Fever and/ or Mild Pain Continue Multivitamins, Thera [Multivitamin (formulary)] 1 tab PO DAILY Cholecalciferol (Vitamin D3) [Vitamin D3] 2,000 unit PO DAILY Calcium Carbonate [Calcium] 1,200 mg PO BID Clopidogrel [Plavix] 75 mg PO DAILY #30 tab Discontinued Loperamide [Imodium] 4 mg PO BID Potassium Chloride ER [K-Dur 10] 10 meq PO QAM amLODIPine [Norvasc] 2.5 mg PO HS Lisinopril-Hctz 20-25 mg [Zestoretic 20-25] 1 tab PO QAM Glucosam/Demian-Msm1/C/Errol/Bosw [Glucosamine-Chondroitin Tablet] 1 tab PO DAILY Carvedilol [Coreg] 6.25 mg PO BID Aspirin [Adult Low Dose Aspirin EC] 81 mg PO DAILY Atorvastatin [Lipitor] 80 mg PO HS #90 tab Nitroglycerin Sl Tabs [Nitrostat] 0.4 mg SUBLINGUAL Q5M PRN #25 tab PRN Reason: Chest Pain Isosorbide Mononitrate [Isosorbide Mononitrate ER] 30 mg PO DAILY Discharge Medication List Calcium Carbonate [Calcium] 1,200 mg PO BID 05/05/18 [History] Cholecalciferol (Vitamin D3) [Vitamin D3] 2,000 unit PO DAILY 05/05/18 [History] Multivitamins, Thera [Multivitamin (formulary)] 1 tab PO DAILY 05/05/18 [History] Acetaminophen Tab [Tylenol] 1,000 mg PO Q6HR PRN tab 01/31/19 [Rx] Aspirin 325 mg PO DAILY #30 tab 01/31/19 [Rx] Atorvastatin [Lipitor] 40 mg PO DAILY #30 tab 01/31/19 [Rx] Clopidogrel [Plavix] 75 mg PO DAILY #30 tab 01/31/19 [Rx] HYDROcodone/APAP 5-325MG [Trent 5-325] 1 each PO Q6HR PRN #20 tab 01/31/19 [Rx] Linagliptin [Tradjenta] 5 mg PO DAILY 30 Days #30 tablet 01/31/19 [Rx] Metoprolol Tartrate [Lopressor] 25 mg PO BID #60 tab 01/31/19 [Rx] Pantoprazole [Protonix] 40 mg PO AC-BRKFST #30 tablet. 01/31/19 [Rx] Sennosides-Docusate Sodium [Senokot-S] 2 each PO HS PRN #14 tab 01/31/19 [Rx] Follow up Appointment(s)/Referral(s): Naomie Cormier NPC [Nurse Practitioner] - 02/05/19 11:15 am Matilde Hodges MD [STAFF PHYSICIAN] - 02/19/19 4:15 pm Connie Johnson MD [STAFF PHYSICIAN] - 03/06/19 10:15 am Ulysses Steiner DO [Doctor of Osteopathic Medicine] - 02/19/19 2:30 pm [facility], [NON-STAFF] - Zulma Yates MD [Primary Care Provider] - 2 Weeks (Please call for appointment ) Ambulatory/Diagnostic Orders: Complete Blood Count w/diff [LAB.AMB] Time Frame: 3 Days, Location: None Selected Comprehensive Metabolic Panel [LAB.AMB] Time Frame: 3 Days, Location: None Selected Activity/Diet/Wound Care/Special Instructions: DISCHARGE INSTRUCTIONS: 1. No driving for 4 weeks, or until physician gives their ok. 2. The patient should sleep in their own bed, no medical bed needed. 3. Stairs are not an issue. If the bedroom is upstairs, it is advised that the patient go up at night and down in the morning for the first week. Go slowly, using handrail and take 1 step at a time. 4. TIO hose are to be worn for 30 days or until physician discontinues. 5. Heart hugger is to be worn 100% of the time until physician discontin ues.(except when showering) 6. No lifting, pushing, or pulling more than 10 pounds for 12 weeks. The physician will advise of any restriction changes. 7. The patient is expected to continue the prescribed walking program. 8. Continue pain control per as needed orders. 9. Continue with incentive spirometry and splinting/heart hugger until otherwise directed by the physician. 10. Must shower daily using liquid antibacterial soap and a separate white washcloth for each individual incision. 11. Routine sternal incision care. No powders, lotions, ointments on incisions. 12. Please call surgeon/CENTER ADMINISTRATOR for temp greater than 101 F or purulent drainage from incisions. 13. Narcotic medications were discussed with the patient, including the potential for misuse, addiction, and abuse. Opiod Start Talking form was reviewed with the patient. 14. All prescriptions given by surgeon for 30 days. Refills need to be filled through tipple operator/primary care physician. 15. A Red armband has been placed on the patient. It should be worn for 30 days post surgery and will be removed by the cardiac surgeons. If an ER visit is necessary, please make sure the number on the Red armband is called. HOME HEALTH SERVICES TO PROVIDE: RN SKILLED HOME CARE SERVICES FOR POST-OP SURGICAL PATIENTS WITH THE FOLLOWING: Coronary Artery Bypass Surgery (CABG), Mitral Valve Repla cement/Repair ( MVR), Aortic Valve Replacement/Repair (AVR) RN TO CONTINUE EDUCATION FROM ``ROAD TO A HEALTH HEART PATIENT EDUCATION MANUAL (GIVEN TO PATIENT IN THE HOSPITAL) MEDICATION RECONCILIATION WITH EDUCATION NEEDED ON FIRST HOME VISIT EMPHASIZE IMPORTANCE OF WEARING BREAST SUPPORT/HEART HUGGER ENCOURAGE USE OF INCENTIVE SPIROMETER 10 X EVERY HOUR WHILE AWAKE ENCOURAGE UTILIZATION OF LOWER EXTREMITY COMPRESSION STOCKINGS/TIO HOSE and ELEVATE LEGS ABOVE LEVEL OF HEART WHILE AT REST. ENCOURAGE AMBULATION 3-5x/day INCREASING TOLERATES, WHILE AVOID EXTREMES IN TEMPERATURE FREQUENCY: RN TO OPEN THE PATIENT WITHIN 24 HOURS OF DISCHARGE FROM THE HOSPITAL WITH TELEHEALTH INSTALLED AT [facility] TO VISIT 2-3 X A WEEK FOR 4 WEEKS ESTABLISHED BY PATIENT NEEDS. REMOVAL OF SUTURES: NURSING SERVICES TO REMOVE SUTURES TWO WEEKS POST SURGICAL DATE 02/10/19. If any questions regarding suture removal please call the office at [phone]. LABORATORY: CBC, CMP TO BE DRAWN ON THE THIRD DAY HOME, (RAN STAT) FAX RESULTS TO [phone]. TELEHEALTH PARAMETERS: WEIGHT: NOTIFY MD OF WEIGHT GAIN OF 2 LBS IN 24 HOURS OR 5 LBS IN ONE WEEK HR: NOTIFY MD OF HR <55 BPM OR HR>100 BPM BP: NOTIFY MD IF BP <90/55 OR BP>140/100 O2 SAT: NOTIFY MD IF PO2<93% ON ROOM AIR SEND TELEHEALTH REPORT TO CONSUMER AFFAIRS DIRECTOR AND CARDIOVASCULAR SURGEON THE FIRST WEEK OF CARE AND THEN BI-WEEKLY. PLEASE ADDITIONALLY COMMUNICATE ANY ABNORMALS AND NEW FINDINGS TO THE SURGEONS OFFICE. Discharge Disposition: HOME WITH HOME HEALTH SERVICES
--- NOTE | 2019-01-31 12:21 | P.PN ---
Subjective Progress Note Date: 01/31/19 This is a 78-year-old female patient who presented for triple bypass coronary artery bypass graft surgery with Dr. Johnson on 01/27/2019. Patient recently underwent cardiac catheterization in which showed in-stent stenosis as well as a LAD disease involving the takeoff of a large diagonal artery. Patient has a known past medical history of coronary artery disease with stent of the RCA last year, diabetes mellitus, hyperlipidemia, hypertension, osteoarthritis, Graves' disease and ex-smoker. Patient is currently postop day 1. Patient has been extubated per protocol. Patient is currently sitting up in chair. Patient stresses that she is having some increased discomfort. Patient remains on insul in drip. Discussed with cardiothoracic team plans to remove mediastinal chest tube and [place] today. Incentive spirometer encouraged. On 01/29/2019 patient is alert and oriented 3. Patient feels improved from yesterday. Insulin drip to be DC'd and transitioned before meals and at bedtime insulin. Chest tubes to be removed prior cardiothoracic surgery. Patient denies any shortness of breath. Patient denies nausea vomiting or diarrhea. Patient denies any urinary burning or frequency. 01/30/2018 patient is alert and oriented 3. Patient is feeling improved. Patient has been moved out of intensive care unit. Chest tubes removed. At this time patient denies chest pain or shortness of breath. Patient denies nausea vomiting or diarrhea. Patient denies any urinary burning or frequency. Dulcolax suppository ordered for constipation. On 01/31/2019 patient is alert and oriented 3. Planning discharge to home today per cardiothoracic surgery. Patient reports she is unable to tolerate metformin. Will DC patient home and try gentle and patient to follow-up with PCP for further management. At this time patient denies chest pain or shortness of breath. Patient denies nausea vomiting or diarrhea. Patient denies any urinary burning or frequency. Objective - Vital Signs Vital signs: Vital Signs Temp 98.2 F 01/31/19 11:19 Pulse 81 01/31/19 11:30 Resp 16 01/31/19 11:30 BP 120/57 01/31/19 11:19 Pulse Ox 92 L 01/31/19 11:19 Intake & Output 01/30/19 01/31/19 01/31/19 18:59 06:59 18:59 Intake Total 462 800 200 Output Total 30 400 Balance 462 770 -200 Weight 91.4 kg Intake: IV 20 Invasive Line 1 10 Invasive Line 2 10 Oral 462 800 180 Output: Drainage 30 Left Leg DANIELA 30 Urine 400 Other: Voiding Method Toilet Toilet # Voids 3 2 1 # Bowel Movements 2 ABP, PAP, CO, CI - Last Documented Arterial Blood Pressure 103/40 Pulmonary Artery Pressure 22/12 Cardiac Output 4.6 Cardiac Index 2.3 - Exam Head normocephalic Neck supple Lungs clear to auscultation bilaterally no wheezing or crackles Heart regular rate and rhythm S1-S2, no rub or gallop Abdomen is soft nontender nondistended positive bowel sounds no hepatosplenomegaly Extremities no edema Neuro alert and orientated to 3 Sternal dressing clean dry and intact heart hugger in place - Labs CBC & Chem 7: 01/31/19 05:50 01/31/19 05:50 Labs: Abnormal Lab Results - Last 24 Hours (Table) 01/30/19 01/30/19 01/31/19 Range/Units 16:56 20:13 05:50 RBC 2.76 L (3.80-5.40) m/uL Hgb 8.4 L (11.4-16.0) gm/dL Hct 23.8 L (34.0-46.0) % Plt Count 129 L (150-450) k/uL BUN (7-17) mg/dL Glucose (74-99) mg/dL POC Glucose (mg/dL) 149 H 153 H (75-99) mg/dL Total Protein (6.3-8.2) g/dL Albumin (3.5-5.0) g/dL 01/31/19 01/31/19 01/31/19 Range/Units 05:50 06:28 11:41 RBC (3.80-5.40) m/uL Hgb (11.4-16.0) gm/dL Hct (34.0-46.0) % Plt Count (150-450) k/uL BUN 25 H (7-17) mg/dL Glucose 145 H (74-99) mg/dL POC Glucose (mg/dL) 161 H 183 H (75-99) mg/dL Total Protein 5.2 L (6.3-8.2) g/dL Albumin 3.1 L (3.5-5.0) g/dL Assessment and Plan Assessment: 1. Status post coronary artery bypass graft surgery triple-vessel. Patient is currently postop day 5. 2. Coronary artery disease with previous stents to RCA 3. History of Graves' disease. 4. Ex-smoker 5. Diabetes mellitus. Hemoglobin A1c 7.6 on 01/16/2019. Insulin drip to be DC'd transition to ac/hs insulin. Patient has been started on Tradjenta. Patient reports she is unable to tolerate metformin. Patient to follow-up with PCP for further management 6. History of essential hypertension 7. History of osteoarthritis 8. History of hyperlipidemia 9. Constipation. Dulcolax suppository has been ordered 10. Acute postoperative blood loss anemia expected. DVT prophylaxis heparin. GI prophylaxis Protonix Thank you for this consultation we'll continue to follow patient closely throughout stay Patient has been moved out of the intensive care unit Planning to be DC'd home when cleared I performed an examination of the patient and discussed their management with the Nurse Practitioner. I have reviewed the Nurse Practitioner's notes and agree with the documented findings and plan of care
[2019-01-31 12:33] VITALS: PULSE 82
[2019-02-04 07:34] LABS: Glucose,Whole Blood 160 mg/dL (75-99)
[2019-02-04 07:34] LABS: Glucose,Whole Blood 154 mg/dL (75-99)
== END 2019-01-31 17:44 | disposition home health service (06) | DRG 236 ==
LOC: 2ORMAIN 05:44 → 2SICU 15:44 → 3SCARD 01-29 19:06
PROVIDERS: ADMIT Surgery; ATTEND Surgery
PROC: 06BQ4ZZ Excision of Left Saphenous Vein, Percutaneous Endoscopic Approach (ICD-10-PCS; 2019-01-27)
PROC: 30233N0 Transfusion of Autologous Red Blood Cells into Peripheral Vein, Percutaneous Approach (ICD-10-PCS; 2019-01-27)
PROC: 02L70CK Occlusion of Left Atrial Appendage with Extraluminal Device, Open Approach (ICD-10-PCS; 2019-01-27)
PROC: 5A1221Z Performance of Cardiac Output, Continuous (ICD-10-PCS; 2019-01-27)
PROC: B24BZZ4 Ultrasonography of Heart with Aorta, Transesophageal (ICD-10-PCS; 2019-01-27)
PROC: 02100Z9 Bypass Coronary Artery, One Artery from Left Internal Mammary, Open Approach (ICD-10-PCS; principal; 2019-01-27 08:00)
PROC: 021109W Bypass Coronary Artery, Two Arteries from Aorta with Autologous Venous Tissue, Open Approach (ICD-10-PCS; 2019-01-27 08:00)
DX: I25.10 Atherosclerotic heart disease of native coronary artery without angina pectoris (principal); D62 Acute posthemorrhagic anemia; T82.855A Stenosis of coronary artery stent, initial encounter; E66.9 Obesity, unspecified; Z68.32 Body mass index [BMI] 32.0-32.9, adult; I10 Essential (primary) hypertension; E78.5 Hyperlipidemia, unspecified; I48.0 Paroxysmal atrial fibrillation; M19.90 Unspecified osteoarthritis, unspecified site; E05.00 Thyrotoxicosis with diffuse goiter without thyrotoxic crisis or storm; J44.9 Chronic obstructive pulmonary disease, unspecified; K59.00 Constipation, unspecified; Z91.048 Other nonmedicinal substance allergy status; Z87.891 Personal history of nicotine dependence; Z79.02 Long term (current) use of antithrombotics/antiplatelets; Z79.82 Long term (current) use of aspirin; Z79.899 Other long term (current) drug therapy; Z90.49 Acquired absence of other specified parts of digestive tract; Z82.49 Family history of ischemic heart disease and other diseases of the circulatory system
CPT/HCPCS: 36410; 71045; 71046; 76937; 80048; 80053; 82330; 82805; 83735; 84132; 85025; 85027; 85520; 85610; 85730; 86850; 86891; 86900; 86901; 86920; 94002; 94003; 94640; 94760

== ENCOUNTER → 2023-10-07 | Outpatient (CLI) | payer MEDICARE ==
--- NOTE | 2023-10-07 13:51 | MM ---
Reason for Exam: Additional evaluation requested from abnormal screening. Last screening mammogram was performed less than 1 month ago. Patient History: Menarche at age 15. First Full-Term at age 34. Late child-bearing (after 30). Postmenopausal. Patient has history of breast feeding. Cyst Aspiration on the Right side. 10/21/2002, Benign Ultrasound-Guided Core Biopsy on the left side. Risk Values: Afua 5 year model risk: 2.6%. NCI Lifetime model risk: 3.8%. Prior Study Comparison: 04/09/2006 Right Diagnostic Mammogram, [facility]. 10/18/2006 Bilateral Screening Mammogram, [facility]. 10/27/2007 Bilateral Screening Mammogram, [facility]. 05/15/2018 Bilateral Screening Mammogram, Unknown. 08/10/2020 Bilateral Screening Mammogram, Unknown. 08/15/2021 Bilateral Screening Mammogram, Unknown. 09/17/2023 Bilateral Screening Mammogram, Unknown. Tissue Density: Left: The breasts are almost entirely fatty. Findings: Analyzed By CAD. Area of concern left breast lateral aspect on CC posterior nipple line slightly inferior on MLO view 10 cm from the nipple is most compatible with benign ossifying fibroadenoma. No biopsy is recommended as this is been stable back to at least 2005. No new suspicious masses, calcifications or distortions. Overall Assessment: Benign, BI-RAD 2 Management: Screening Mammogram of both breasts in 1 year. Results were given to the patient verbally at the time of exam. Patient should continue monthly self-breast exams. A clinical breast exam by your physician is recommended on an annual basis. This exam should not preclude additional follow-up of suspicious palpable abnormalities. Note on Afua scores and lifetime risk: 1. A Afua score greater than 3% is considered moderate risk. If this is the case, consider specialist referral to assess eligibility for a risk reducing agent. 2. If overall lifetime risk for the development of breast cancer is 20% or higher, the patient may qualify for future screening with alternating mammogram and breast MRI. Electronically signed and approved by: Ulysses Oconnor DO
== END | disposition home or self-care (01) ==
LOC: RADMAMWWP 12:53
PROVIDERS: ATTEND Internal Medicine
DX: R92.8 Other abnormal and inconclusive findings on diagnostic imaging of breast (principal); Z78.0 Asymptomatic menopausal state
CPT/HCPCS: 77065; G0279; 77061

== ENCOUNTER → 2024-09-24 | Outpatient (CLI) | payer MEDICARE ==
--- NOTE | 2024-09-24 18:28 | CT ---
EXAMINATION TYPE: CT lumbar spine wo con DATE OF EXAM: 09/24/2024 6:08 PM COMPARISON: CLINICAL INDICATION: Female, 84 years old with history of M51.369 Degeneration of intravertebral disc of lum; PHH, Weakness in both legs x1 year. Degeneration of intravertebral disc of lumbar. TECHNIQUE: Unenhanced CT of the lumbar spine was performed. Bone and soft tissue window settings are submitted as well as coronal and sagittal reconstructions. CT DLP: 1020.[address] CTDI: mGy Automated exposure control for dose reduction was used. FINDINGS: L1-L2: Normal disc space height. No disc herniation protrusion or central stenosis. No facet joint arthropathy. No evidence for foraminal encroachment. L2-L3: Moderate degenerative disc space narrowing. No disc herniation protrusion or central stenosis. No facet joint arthropathy. No evidence for foraminal encroachment. L3-L4: Moderate degenerative disc space narrowing with circumferential disc bulge greatest posteriorl y. Mild effacement of the ventral thecal sac. There is effacement of the ventral thecal sac with bila teral lateral recess stenosis and borderline to mild central stenosis. Facet joint arthropathy with m ild bilateral foraminal encroachment. L4-L5: Severe degenerative disc disease with vacuum discs. Right hemilaminectomy change. Posterior di sc bulge with mild central stenosis difficult to exclude. Right greater than left foraminal encroachm ent. Lack of contrast limits evaluation. L5-S1: Severe degenerative disc space narrowing and vacuum disks. A sterile disc bulge without centra l herniation or central stenosis. No foraminal encroachment seen. IMPRESSION: 1. Multilevel degenerative disc disease. 2. Central stenosis as discussed above. [facility], , 09/24/2024 6:26 PM
== END | disposition home or self-care (01) ==
LOC: RADCTMAIN 17:39
PROVIDERS: ATTEND Internal Medicine
DX: M51.369 Other intervertebral disc degeneration, lumbar region without mention of lumbar back pain or lower extremity pain (principal); M48.061 Spinal stenosis, lumbar region without neurogenic claudication
CPT/HCPCS: 72131

== ENCOUNTER → 2024-11-30 | Outpatient (CLI) | payer MEDICARE ==
--- NOTE | 2024-11-30 15:35 | MM ---
Reason for Exam: Screening (asymptomatic). Last mammogram was performed 1 year(s) and 3 month(s) ago. Patient History: Menarche at age 15. First Full-Term at age 34. Late child-bearing (after 30). Postmenopausal. Patient has history of breast feeding. Cyst Aspiration on the Right side. 10/21/2002, Benign Ultrasound-Guided Core Biopsy on the left side. Risk Values: Afua 5 year model risk: 2.6%. NCI Lifetime model risk: 3.4%. Prior Study Comparison: 08/15/2021 Bilateral Screening Mammogram, Unknown. 09/17/2023 Bilateral Screening Mammogram, Unknown. 10/07/2023 Left MG 3D work up w/cad LT, [facility]. Tissue Density: The breasts are heterogeneously dense, which may obscure small masses. Findings: Analyzed By CAD. There are benign-appearing round, linear, and vascular calcifications bilaterally redemonstrated. A group of dystrophic calcifications in the left breast is again seen posteriorly. Stable 4mm circumscribed round mass anteriorly in the right breast. There is no suspicious group of microcalcifications or new or enlarging suspicious mass in either breast. Overall Assessment: Benign, BI-RAD 2 Management: Screening Mammogram of both breasts in 1 year. . Patient should continue monthly self-breast exams. A clinical breast exam by your physician is recommended on an annual basis. This exam should not preclude additional follow-up of suspicious palpable abnormalities. Note on Afua scores and lifetime risk: 1. A Afua score greater than 3% is considered moderate risk. If this is the case, consider specialist referral to assess eligibility for a risk reducing agent. 2. If overall lifetime risk for the development of breast cancer is 20% or higher, the patient may qualify for future screening with alternating mammogram and breast MRI. [facility], , 11/30/2024 3:32 PM. Electronically signed and approved by: Chris Contreras M.D.
== END | disposition home or self-care (01) ==
LOC: RADMAMWWP 15:12
PROVIDERS: ATTEND Internal Medicine
DX: Z12.31 Encounter for screening mammogram for malignant neoplasm of breast (principal); R92.333 Mammographic heterogeneous density, bilateral breasts; R92.1 Mammographic calcification found on diagnostic imaging of breast; Z78.0 Asymptomatic menopausal state
CPT/HCPCS: 77063; 77067